=== PATIENT | female | born 2005 | race Caucasian/White ===

== ENCOUNTER 2024-03-08 09:54 | Outpatient (REF) | payer MEDICAID, SELFPAY ==
[2024-03-08 11:21] LABS: Estimated Average Glucose 134 mg/dL; Hemoglobin A1c % 6.3 % (<6.0)
[2024-03-08 11:32] LABS: HIV AB/AG Nonreactive (Nonreactive); HIV Num 1 0.05 S/CO (0.00-0.99)
[2024-03-10 19:24] LABS: TS Negative Control Passed; TS Panel A 1; TS Panel B 1; TS Positive Control Passed; TSpotTB Negative (Negative)
== END 2024-03-08 09:55 | disposition home or self-care (01) ==
LOC: HO.LAB 09:54
PROVIDERS: Visit Provider Family Medicine Adult Medicine
DX: Z00.01 Encounter for general adult medical examination with abnormal findings (principal)
CPT/HCPCS: 36415; 83036; 86481; 87389

== ENCOUNTER 2024-05-04 19:46 | Inpatient (IN) | payer MEDICAID, OTHER, SELFPAY ==
--- NOTE | 2024-05-04 20:06 | ED_ITS ---
HPI - General Adult General Chief complaint: Psychiatric Symptoms Stated complaint: Meds not working, she doesn't feel good Time Seen by Provider: 05/04/24 20:36 Source: patient Mode of arrival: ambulatory Limitations: no limitations History of Present Illness HPI narrative: Patient is a 19-year-old female who presents to the emergency department for evaluation. She states that she is in experiencing increasing depression and having suicidal ideations without any specific plan. She has been taking her medications as prescribed but despite a recent dosage change she only had improvement in her depression for approximately 1 month amend her depression worsened again. By her account she was taking lithium 150 mg, in mid March this was increased to 3 450 mg tablets for total of 1350 mg at bedtime and an additional 150 mg in the morning She recently moved from [facility] where she was seeing a therapist through [facility], she is currently residing at [facility]. She is requesting to establish care with [facility] at this time. She denies any recreational drug or alcohol usage. She offers no physical complaints at this time. Related Data Home Medications ?Medication ?Instructions ?Recorded ?Confirmed hydroxyzine pamoate 25 mg capsule 25 mg PO BID PRN anxiety 05/04/24 05/04/24 lithium carbonate 450 mg 450 mg PO QAM 05/04/24 05/04/24 tablet,extended release lithium carbonate 450 mg 900 mg PO BEDTIME 05/04/24 05/04/24 tablet,extended release Allergies Allergy/AdvReac Type Severity Reaction Status Date / Time Sulfa (Sulfonamide AdvReac Hives Verified 05/04/24 20:11 Antibiotics) Review of Systems 2 Review of Systems: Yes all other systems are reviewed and are negative [facility] Past Medical History Attestation statement: The following information was validated with the patient. Source: old records reviewed Social History Social History Advance Directives: No Advance Directives Information Provided: No Do you have a plan to hurt others: No Plan Physical Exam ED Vital Signs: Vital Signs - 24 hr 05/04/24 20:09 Temperature 98.4 F Pulse Rate 112 H Respiratory Rate 20 Blood Pressure 142/85 H Pulse Oximetry 100 Oxygen Delivery Method Room Air BMI result Body Mass Index 47.9 Appearance: Alert.?Oriented to person, place and time. No acute distress.?Normal affect. Neck: Normal inspection.? Neck supple.?? CVS: Heart sounds normal. Normal heart rate and rhythm.? Pulses normal.?? Respiratory: No respiratory distress.? Lung sounds clear to auscultation bilaterally?? Abdomen: Soft and non-tender. Normoactive bowel sounds. Skin: Skin warm and dry.? Normal skin color.? .?? Extremities: No lower extremity edema.? Neuro: Moves all extremities spontaneously. Sensation intact bilaterally. CN II- XII intact. No focal neuro deficits. Ambulates with normal steady gait. Course Course Course Narrative: This is an RME done by MIKAELA Andrade: Additional HPI, ROS, PE not included below will be deferred to primary provider. 19 year old female presenting from [facility] stating she was supposed to be set up with a therapist when she was there. Patient admits to SI without a plan. She has been taking her medications, but states they recently got changed and they are no longer working for her. Plan - labs, urine, WILKES, ethanol Appearance: Alert.? Oriented X3.? No acute cardiopulmonary distress distress.? Head: Normocephalic, atraumatic, no step-offs or deformities ENT: Pharynx normal.??External ears normal, TMs normal bilaterally and EAC's normal. No pain with manipulation of external ears bilaterally. No mastoid tenderness. Neck: Normal inspection.? Neck supple.? CVS: Pulses normal.? Respiratory: No respiratory distress.? Abdomen: Soft and nontender.? Skin: ? Normal skin color. Extremities: 5/5 strength to bilateral upper and lower extremities Back: No midline tenderness, no C-spine tenderness, full range of motion, No CVA tenderness bilaterally Neuro: Oriented X 3.? No motor deficit.? No sensory deficit. Reevaluation(s) Reevaluation #1: Patient was evaluated by care team, section 12 inpatient bed search at this time. Recent SI attempt via overdose on olanzapine pain in December of 2023, 2 attempts as a child as well. Serum lithium level is low, do not suspect that she has been taking her dosages as she advised. I do feel that she would benefit from inpatient level of care at this time. Time: 22:51 Reevaluation #2: 631am 05/05/24 no acute events on overnight shift, has WBC count but no UTI and no fevers, she is inpatient bed search S12, will continue to monitor for any acute changes - JAMARI Medical Decision Making Medical Decision Making MDM Narrative: Patient is a 19-year-old female who presents emergency department with depression suicidal ideations but no endorsed specific plan as per HPI. Overall she appears well, nontoxic, afebrile. She does appear mildly anxious, but she states she is upset because her medications are not working. On review of her medical history I see that she is being prescribed lithium in addition to hydroxyzine, she has previously been prescribed olanzapine in the past for psychosis. Given she is endorsing active suicidal ideations but not offer any specific plan. Serum labs will be obtained for medical clearance and she will be referred to the care team for further evaluation safe disposition planning. Differential Diagnosis Differential Diagnoses: The differential diagnosis associated with the presentation includes (See narrative below) Admission/Observation Consideration of admission/observation: Escalation of care including admission/observation considered Patient is being observed in the Emergency Department for depression and anxiety. Observation time was started at 21:58 on 05/04/2024..?The patient is currently stable and non-toxic appearing. Observation is being initiated in the Emergency Department to allow time to help differentiate if the patient's depression and anxiety is due to Substance Induced Mood Disorder and Anxiety versus Major Depressive Disorder, Bipolar Chante, Bipolar Depression, and Schizophrenia. The patient will receive frequent psychiatric assessments from the provider as well as from nursing staff. The patient will also be monitored for the need of PRN agitation medications such as Haldol, Ativan, and Benadryl. Consult Healthcare Provider Management of the patient was discussed with: Behavioral Health Provider Lab Data [facility] Lab Attestation statement: I reviewed the patient's lab results. WILKES negative, alcohol level nondetectable. No significant electrolyte derangement, no GABRIELA. LFTs mildly elevated, no nausea vomiting abdominal pain has benign examination, no jaundice. 05/04/24 20:27 05/04/24 20:27 Labs: Lab Results 05/04/24 05/04/24 05/04/24 Range/Units 20:27 20:48 22:09 WBC 15.3 H (4.8-10.8) X10*3/uL RBC 4.94 (4.20-5.50) X10*6/uL Hgb 13.5 (12.0-16.0) g/dl Hct 40.6 (37.0-47.0) % MCV 82.2 (80.0-98.0) fL MCH 27.3 (27.0-33.0) pg MCHC 33.3 (31.0-35.0) g/dl RDW 12.7 (11.0-16.0) % Plt Count 309 (160-400) X10*3/uL MPV 10.2 (9.4-12.3) fL Immature Gran % (Auto) 0.4 (0.0-0.4) % Neut % (Auto) 69.7 (45-73) % Lymph % (Auto) 24.8 (20-40) % [place] % (Auto) 4.1 (2-11) % Eos % (Auto) 0.7 (0-4) % Baso % (Auto) 0.3 (0-2) % Lymph # (Auto) 3.8 (1.2-4.9) X10*3/uL [place] # (Auto) 0.6 (0.1-1.2) X10*3/uL Eos # (Auto) 0.1 (0.0-0.4) X10*3/uL Baso # (Auto) 0.1 (0.0-0.2) X10*3/uL Abs Immat Gran (auto) 0.06 H (0.00-0.03) X10*3/uL Absolute Neuts (auto) 10.6 H (2.0-8.3) x10*3/uL Absolute Nucleated RBC 0.000 (0.0-0.012) X10*3/uL Nucleated RBC % (auto) 0.0 (0.0-0.2) /100WBC Sodium 142 (135-145) mmol/L Potassium 3.7 (3.3-5.1) mmol/L Chloride 109 H (96-108) mmol/L Carbon Dioxide 23 (22-29) mmol/L Anion Gap 14 (12-20) BUN 6 L (9-16) mg/dL Creatinine 0.79 (0.5-1.4) mg/dL Estim Creat Clear Calc 132.9 Estimated GFR > 60 Random Glucose 175 H (60-115) mg/dL Calcium 9.9 (8.4-10.2) mg/dL Magnesium 2.3 (1.6-2.6) mg/dL Total Bilirubin 0.3 (0.0-1.0) mg/dL AST 43 H (5-31) U/L ALT 54 H (0-31) U/L Alkaline Phosphatase 122 H (39-117) U/L Total Protein 7.3 (6.5-8.0) g/dL Albumin 4.4 (3.5-5.0) g/dL Urine Color Yellow Urine Appearance Clear Urine pH 7.0 (5.0-9.0) Ur Specific [place] <= 1.005 (1.005-1.025) Urine Protein Negative (Neg-Trace) mg/dL Urine Glucose (UA) Negative (Negative) mg/dL Urine Ketones Negative (Negative) mg/dL Urine Blood Negative (Negative) Urine Nitrite Negative (Negative) Ur Leukocyte Esterase Trace H (Negative) Urine RBC 0-2 (0-2) /HPF Urine WBC 0-5 (0-5) /HPF Ur Squamous Epith Cells 0-2 (0-2) /HPF Urine Bacteria None Seen (None Seen) Hyaline Casts 0-2 (0-2) /LPF Urine Test NEGATIVE (NEGATIVE) Urine Opiates Screen Not Detected (Not Detect) Ur Buprenorphine Scrn Not Detected (Not Detect) ng/mL Ur Oxycodone Screen Not Detected (Not Detect) ng/mL Urine Methadone Screen Not Detected (Not Detect) ng/mL Urine Fentanyl Screen Not Detected (Not Detect) Ur Barbiturates Screen Not Detected (Not Detect) Ur Phencyclidine Scrn Not Detected (Not Detect) Ur Amphetamines Screen Not Detected (Not Detect) U Benzodiazepines Scrn Not Detected (Not Detect) [place] 0.14 L (0.60-1.20) mmol/L Urine Cocaine Screen Not Detected (Not Detect) U Marijuana (THC) Screen Not Detected (Not Detect) Ethyl Alcohol < 10 mg/dL External Record Review External record reviewed: Outpatient record Discharge Plan Discharge Clinical Impression: Suicidal ideation, Depression Patient Disposition: Still a Patient Prescriptions: No Action lithium carbonate 450 mg tablet extended release 450 mg PO QAM hydroxyzine pamoate 25 mg capsule 25 mg PO BID PRN (Reason: anxiety) lithium carbonate 450 mg tablet extended release 900 mg PO BEDTIME Interventions: [place]-Suicide Risk Severity Scale Last Done: 05/04/24 20:38 Print Language: Guinean
[2024-05-04 20:09] VITALS: BP 142/85; PULSE 112; RESP 20; TEMP 36.9; O2SAT 100; BMI 47.9
[2024-05-04 20:31] LABS: MANUAL DIFF FLAG NO
[2024-05-04 20:32] LABS: Basophils Absolute Auto 0.1 X10*3/uL (0.0-0.2); Basophils Percent Auto 0.3 % (0-2); Eosinophils Absolute Auto 0.1 X10*3/uL (0.0-0.4); Eosinophils Percent Auto 0.7 % (0-4); Hematocrit 40.6 % (37.0-47.0); Hemoglobin 13.5 g/dl (12.0-16.0); Imm Gran Abs Auto 0.06 X10*3/uL (0.00-0.03); Imm Gran Pct Auto 0.4 % (0.0-0.4); Lymphocytes Absolute Auto 3.8 X10*3/uL (1.2-4.9); Lymphocytes Percent Auto 24.8 % (20-40); Mean Corpuscular HGB Conc 33.3 g/dl (31.0-35.0); Mean Corpuscular Hemoglobin 27.3 pg (27.0-33.0); Mean Corpuscular Volume 82.2 fL (80.0-98.0); Mean Platelet Volume 10.2 fL (9.4-12.3); Monocytes Absolute Auto 0.6 X10*3/uL (0.1-1.2); Monocytes Percent Auto 4.1 % (2-11); Neutrophils Absolute Auto 10.6 x10*3/uL (2.0-8.3); Neutrophils Percent Auto 69.7 % (45-73); Platelet Count 309 X10*3/uL (160-400); Red Blood Count 4.94 X10*6/uL (4.20-5.50); Red Cell Distribution Width 12.7 % (11.0-16.0); White Blood Count 15.3 X10*3/uL (4.8-10.8)
[2024-05-04 20:53] LABS: Alanine Aminotransferase 54 U/L (0-31); Albumin Level 4.4 g/dL (3.5-5.0); Alkaline Phosphatase 122 U/L (39-117); Anion Gap 14 (12-20); Aspartate Amino Transferase 43 U/L (5-31); Bilirubin Total 0.3 mg/dL (0.0-1.0); Blood Urea Nitrogen 6 mg/dL (9-16); Calcium 9.9 mg/dL (8.4-10.2); Carbon Dioxide 23 mmol/L (22-29); Chloride 109 mmol/L (96-108); Creatinine Clr Calc Pharmacy 132.9; Estimated Glomerular Filt Rate > 60; Ethanol < 10 mg/dL; Glucose Random 175 mg/dL (60-115); Magnesium 2.3 mg/dL (1.6-2.6); Potassium 3.7 mmol/L (3.3-5.1); Sodium 142 mmol/L (135-145); Total Protein 7.3 g/dL (6.5-8.0)
[2024-05-04 20:57] LABS: Appearance Urine Clear; Color Urine Yellow; Glucose Urine UA Negative (Negative); Leukocyte Esterase Urine Trace (Negative); Nitrite Urine Negative (Negative); Specific Gravity - Urine <= 1.005 (1.005-1.025); UMIC TRIGGER UACC YES; Urine Blood Negative (Negative); Urine Ketones Negative (Negative); Urine Protein Negative (Neg-Trace)
[2024-05-04 20:58] LABS: UPreg QC Valid YES; Urine Pregnancy NEGATIVE (NEGATIVE)
[2024-05-04 21:00] LABS: Bacteria Urine None Seen (None Seen); Hyaline Casts Urine 0-2 /LPF (0-2); RBC Urine 0-2 /HPF (0-2); Squamous Epithelial Cell Urine 0-2 /HPF (0-2); WBC Urine 0-5 /HPF (0-5)
[2024-05-04 21:06] LABS: Amphetamine Screen Urine Not Detected (Not Detect); Barbiturates, Urine Not Detected (Not Detect); Benzodiazepines Screen Urine Not Detected (Not Detect); Buprenorphine Scr Not Detected (Not Detect); Cannabinoid Screen Urine Not Detected (Not Detect); Cocaine Screen Urine Not Detected (Not Detect); Fentanyl, urine Not Detected (Not Detect); Methadone Screen, Urine Not Detected (Not Detect); Opiate Screen Urine Not Detected (Not Detect); Oxycodone Screen Urine Not Detected (Not Detect); Phencyclidine Screen Urine Not Detected (Not Detect)
[2024-05-04 22:26] LABS: Lithium 0.14 mmol/L (0.60-1.20)
--- NOTE | 2024-05-05 | ECG_ITS ---
Test Reason : COUSIB Blood Pressure : / mmHG Vent. Rate : 063 BPM Atrial Rate : 063 BPM P-R Int : 152 ms QRS Dur : 080 ms QT Int : 414 ms P-R-T Axes : 029 059 036 degrees QTc Int : 423 ms Normal sinus rhythm with sinus arrhythmia Normal ECG No previous ECGs available Referred By: David Zuluaga Electronically Signed By:ANAYA BEATTY
--- NOTE | 2024-05-05 06:29 | PC.NURSE ---
Patient slept through the night, no distress observed/reported, no behavior and safety concerns, VSS, med rec completed/pending provider's approval, disposition per care team, will continue to monitor
[2024-05-05 06:37] VITALS: BP 126/85; PULSE 75; RESP 16; TEMP 37.1; O2SAT 98
--- NOTE | 2024-05-05 07:14 | PC.NURSE ---
Assumed care of patient at 0645, patient appears to be sleeping, respirations even and unlabored, no apparent distress noted. Continue plan of care for inpatient bedsearch at this time
[2024-05-05] MEDS: Lithium Carbonate ER 450 MG TABLET.ER PO (08:41)
--- NOTE | 2024-05-05 16:52 | PC.ADMIT ---
Gaye is a 19-year-old female admitted from [facility] to M3 on a CV for treatment of schizoaffective bipolar disorder and SI.
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
[2024-05-05 18:01] VITALS: BMI 47.1
[2024-05-05 20:00] VITALS: BP 138/72; PULSE 85; RESP 16; TEMP 36.6; O2SAT 98
[2024-05-06 07:00] VITALS: BMI 47.1
[2024-05-06 08:00] VITALS: BP 125/69; PULSE 86; RESP 16; TEMP 36.4; O2SAT 99
--- NOTE | 2024-05-06 08:42 | P.HPPS_ITS ---
[facility] Date of Service: 05/06/24 Chief Complaint: Crisis Sources of Information: patient interviewed, chart reviewed and crisis/core team assessment reviewed HPI Subjective Notes: Doe Warning and Conditional Voluntary Narrative: Patient is a 19-year-old female with history of schizoaffective disorder who self presented to [facility] due to suicidal ideation secondary to increased depression. Per crisis report, patient reports a recent medication change and believes it is no longer working. Patient was taken off olanzapine a few months ago at the request of patient due to weight gain and her lithium was increased. [place] level was 0.14. Patient reported suicidal ideation with plans to cut herself. Patient reports last time she cut was December 2023. She reports multiple inpatient psychiatric hospitalizations. denies HI/VH/AH. Per patient's mother, she is medication compliant. Patient has a history of 3 prior suicide attempts by intentional overdose. Two of the suicide attempts were in her adolescents and another was a year ago. Patient has a prescriber who is located in [place], [place]. She does not currently have an outpatient therapist but would like to be referred to one through [facility]. Patient reports sleeping well at night and denies any nightmares. She reports not having any hallucinations and months . During admission assessment, alert and oriented x3, calm and cooperative. Patient stated, I came to the hospital because I feel like my meds are not working and I was not feeling safe where I was. I don't feel like the medication was helping with my depression. I was having thoughts to cut myself, not suicide. Patient reports she forgets to take her medications at times. Patient reports the stress of [facility] and all the drama there made me want to cut . Patient denies any substance use. Utox negative. Patient stated, I just want to make sure my meds are okay and I want to get a therapist through [facility] . Patient denies SI/HI/VH/AH. Past Psychiatric History: History of multiple inpatient psychiatric hospitalizations. Patient reports 3 prior suicide attempts via medication overdose. She reports history of cutting. Psychiatrist: Crystal Thomas in [place], [place] Patient does not currently have a therapist. Medication history: [place], Zyprexa. Medical Evaluation Reviewed: Yes PMFSH Family History: Father-schizophrenia Social History: Lives at [facility], single, no kids. High school diploma. Substance History: Denies Trauma History: Denies Diagnostics Vital Signs (24Hr): Vital Signs - 24 hr 05/05/24 20:00 05/06/24 08:00 Temperature 97.8 F 97.6 F Pulse Rate 85 86 Respiratory Rate 16 16 Blood Pressure 138/72 125/69 Pulse Oximetry 98 99 Oxygen Delivery Method Room Air Room Air BMI result Body Mass Index 47.1 Labs 05/04/24 20:27 05/06/24 09:39 Labs: Laboratory Results - last 48 hr 05/04/24 05/04/24 05/04/24 20:27 20:48 22:09 WBC 15.3 H RBC 4.94 Hgb 13.5 Hct 40.6 MCV 82.2 MCH 27.3 MCHC 33.3 RDW 12.7 Plt Count 309 MPV 10.2 Immature Gran % (Auto) 0.4 Neut % (Auto) 69.7 Lymph % (Auto) 24.8 [place] % (Auto) 4.1 Eos % (Auto) 0.7 Baso % (Auto) 0.3 Lymph # (Auto) 3.8 [place] # (Auto) 0.6 Eos # (Auto) 0.1 Baso # (Auto) 0.1 Abs Immat Gran (auto) 0.06 H Absolute Neuts (auto) 10.6 H Absolute Nucleated RBC 0.000 Nucleated RBC % (auto) 0.0 Sodium 142 Potassium 3.7 Chloride 109 H Carbon Dioxide 23 Anion Gap 14 BUN 6 L Creatinine 0.79 Estim Creat Clear Calc 132.9 Estimated GFR > 60 Random Glucose 175 H Calcium 9.9 Magnesium 2.3 Total Bilirubin 0.3 AST 43 H ALT 54 H Alkaline Phosphatase 122 H Total Protein 7.3 Albumin 4.4 Urine Color Yellow Urine Appearance Clear Urine pH 7.0 Ur Specific [place] <= 1.005 Urine Protein Negative Urine Glucose (UA) Negative Urine Ketones Negative Urine Blood Negative Urine Nitrite Negative Ur Leukocyte Esterase Trace H Urine RBC 0-2 Urine WBC 0-5 Ur Squamous Epith Cells 0-2 Urine Bacteria None Seen Hyaline Casts 0-2 Urine Test NEGATIVE Urine Opiates Screen Not Detected Ur Buprenorphine Scrn Not Detected Ur Oxycodone Screen Not Detected Urine Methadone Screen Not Detected Urine Fentanyl Screen Not Detected Ur Barbiturates Screen Not Detected Ur Phencyclidine Scrn Not Detected Ur Amphetamines Screen Not Detected U Benzodiazepines Scrn Not Detected [place] 0.14 L Urine Cocaine Screen Not Detected U Marijuana (THC) Screen Not Detected Ethyl Alcohol < 10 Meds/Allergies Meds Home Medications ?Medication ?Instructions ?Recorded ?Confirmed ?Type hydroxyzine pamoate 25 mg capsule 25 mg PO BID PRN anxiety 05/04/24 05/04/24 History lithium carbonate 450 mg 450 mg PO QAM 05/04/24 05/04/24 History tablet,extended release lithium carbonate 450 mg 900 mg PO BEDTIME 05/04/24 05/04/24 History tablet,extended release Allergies Allergies Allergy/AdvReac Type Severity Reaction Status Date / Time Sulfa (Sulfonamide AdvReac Hives Verified 05/04/24 20:11 Antibiotics) Mental Status Exam Mental Status Exam Narrative: Pt is alert and oriented; behavior is cooperative and calm; dressed in casual attire; mood is described as depressed ; eye contact appropriate; Speech is normal rate, volume and not pressured; thought process is organized and goal directed; Thought content is on tx; otherwise pertinent to relevant topics and without any delusional content, paranoid ideations or grandiosity; denies SI/HI/AH/VH. Assessment & Plan Assessment & Plan (1) Schizoaffective disorder: Status: Acute Code(s): F25.9 - Schizoaffective disorder, unspecified Plan Patient is a 19-year-old female with history of schizoaffective disorder who self presented to [facility] due to suicidal ideation secondary to increased depression. Plan: CV 15 minute safety checks Continue home medications Encourage groups Discharge planning Patient educated on: diagnosis, medication risk/benefits and therapeutic strategies Informed Consent: understands Reason for continued inpatient stay Substantial Risk for: harm to self and med/psych decompensation Statement Statement: I have reviewed the history and physical and performed a pertinent examination on my patient. No changes have occurred unless specified. If the History and Physical was not performed prior to admission, the Hospitalist's service will be consulted for completing the admission physical. Time Spent With Patient Time: Total time managing care of this patient today _60___ minutes.
[2024-05-06] MEDS: Lithium Carbonate ER 450 MG TABLET.ER PO (09:05)
[2024-05-06 10:40] LABS: Alanine Aminotransferase 55 U/L (0-31); Albumin Level 4.1 g/dL (3.5-5.0); Alkaline Phosphatase 117 U/L (39-117); Anion Gap 16 (12-20); Aspartate Amino Transferase 36 U/L (5-31); Bilirubin Total 0.4 mg/dL (0.0-1.0); Blood Urea Nitrogen 9 mg/dL (9-16); Calcium 9.9 mg/dL (8.4-10.2); Carbon Dioxide 21 mmol/L (22-29); Chloride 110 mmol/L (96-108); Cholesterol 144 mg/dL (<200); Creatinine Clr Calc Pharmacy 136.6; Estimated Glomerular Filt Rate > 60; Glucose Fasting 139 mg/dL (60-99); HDL Cholesterol 26 mg/dL (>40); LDL Cholesterol Calculated 86 mg/dL (<100); Potassium 3.8 mmol/L (3.3-5.1); Sodium 143 mmol/L (135-145); Triglycerides 160 mg/dL (<150)
[2024-05-06 20:00] VITALS: BP 130/77; PULSE 91; RESP 14; TEMP 36.6; O2SAT 100
[2024-05-06] MEDS: Lithium Carbonate ER 450 MG TABLET.ER 900 MG PO (20:12)
[2024-05-07 07:35] VITALS: BP 114/63; PULSE 82; RESP 14; TEMP 36.4; O2SAT 96
--- NOTE | 2024-05-07 08:33 | HO.PSYCHPN ---
Subjective Subjective Date of Service: 05/07/24 Reason For Visit: Crisis Subjective Notes: Conditional Voluntary Interim History: Reviewed with Dr. Pena. Pt reports feeling better than yesterday. She reports sleeping well last night. attending groups. Showered. Pt denies thoughts of cutting today. Continue current tx plan. Medication Compliance: Yes Side effects from medications: No Attending Groups: Yes Review of Systems Constitutional: Reports as per HPI Eyes: Reports as per HPI Reports as per HPI Cardiovascular: Reports as per HPI Respiratory: Reports as per HPI Gastrointestinal: Reports as per HPI Musculoskeletal: Reports as per HPI Skin/Breast: Reports as per HPI Reports as per HPI Psychiatric: Reports as per HPI Endocrine: Reports as per HPI Hematologic/Lymphatic: Reports as per HPI Allergic/Immunologic: Reports as per HPI Mental Status Exam Mental Status Exam Narrative: Pt is alert and oriented; behavior is cooperative and calm; dressed in casual attire; mood is described as better than yesterday ; eye contact appropriate; Speech is normal rate, volume and not pressured; thought process is organized and goal directed; Thought content is on tx; otherwise pertinent to relevant topics and without any delusional content, paranoid ideations or grandiosity; denies SI/HI/AH/VH. Diagnostics Vital Signs (24Hr): Vital Signs - 24 hr 05/06/24 20:00 05/07/24 07:35 Temperature 97.9 F 97.6 F Pulse Rate 91 82 Respiratory Rate 14 14 Blood Pressure 130/77 114/63 Pulse Oximetry 100 96 Oxygen Delivery Method Room Air Room Air BMI result Body Mass Index 47.1 Labs 05/04/24 20:27 05/06/24 09:39 Labs: Laboratory Results - last 48 hr 05/06/24 09:39 Sodium 143 Potassium 3.8 Chloride 110 H Carbon Dioxide 21 L Anion Gap 16 BUN 9 Creatinine 0.76 Estim Creat Clear Calc 136.6 Estimated GFR > 60 Fasting Glucose 139 H Calcium 9.9 Total Bilirubin 0.4 AST 36 H ALT 55 H Alkaline Phosphatase 117 Total Protein 7.0 Albumin 4.1 Triglycerides 160 H Cholesterol 144 LDL Cholesterol, Calc 86 HDL Cholesterol 26 L Medications Medications Current Medications Acetaminophen (Acetaminophen 325 Mg Tablet) 650 mg PO Q6H PRN PRN Reason: Headache/Pain Mild Scale (1-3) Al Hydroxide/Mg Hydroxide (Magnesium Hydrox/Alum Hydrox 30 Ml Oral.Susp) 30 ml PO Q6H PRN PRN Reason: Heartburn/Nausea Hydroxyzine HCl (Hydroxyzine Hcl 25 Mg Tablet) 25 mg PO BID PRN PRN Reason: anxiety [place] Carbonate ([place] Carbonate Er 450 Mg Tablet.Er) 450 mg PO DAILY [facility] Last Admin: 05/06/24 09:05 Dose: 450 mg [place] Carbonate ([place] Carbonate Er 450 Mg Tablet.Er) 900 mg PO BEDTIME GRACY Last Admin: 05/06/24 20:12 Dose: 900 mg Magnesium Hydroxide (Milk Of Magnesia 30 Ml Oral.Susp) 30 ml PO DAILY PRN PRN Reason: Constipation Trazodone HCl (Trazodone Hcl 50 Mg Tablet) 50 mg PO BEDTIME MRX1 PRN PRN Reason: Insomnia Allergies Allergies Allergy/AdvReac Type Severity Reaction Status Date / Time blue dye AdvReac Intermediate Redness of Verified 05/06/24 16:32 Skin red dye AdvReac Intermediate Redness of Verified 05/06/24 16:32 Skin Sulfa (Sulfonamide AdvReac Hives Verified 05/04/24 20:11 Antibiotics) Assessment & Plan Assessment & Plan (1) Schizoaffective disorder: Status: Acute Code(s): F25.9 - Schizoaffective disorder, unspecified Plan Patient is a 19-year-old female with history of schizoaffective disorder who self presented to [facility] due to suicidal ideation secondary to increased depression. Plan: CV 15 minute safety checks Continue home medications Encourage groups Discharge planning 05/07: Pt reports feeling better than yesterday. She reports sleeping well last night. attending groups. Showered. Pt denies thoughts of cutting today. Continue current tx plan. Patient educated on: diagnosis, medication risk/benefits and therapeutic strategies Reason for continued inpatient stay Substantial Risk for: harm to self and med/psych decompensation Time Spent With Patient Time: Total time managing care of this patient today _20___ minutes.
[2024-05-07] MEDS: Lithium Carbonate ER 450 MG TABLET.ER PO (08:34)
[2024-05-07 19:50] VITALS: BP 130/75; PULSE 90; RESP 18; TEMP 36.8; O2SAT 100
[2024-05-07] MEDS: Lithium Carbonate ER 450 MG TABLET.ER 900 MG PO (22:24)
[2024-05-08 08:00] VITALS: BP 128/71; PULSE 78; RESP 18; TEMP 36.7; O2SAT 99
--- NOTE | 2024-05-08 09:05 | P.PNPSI_ITS ---
Subjective Subjective Date of Service: 05/08/24 Reason For Visit: Crisis Interim History: Patient continues to report improvement in mood. Denies SI or self harm urges. She is reported to be pleasant and cooperative with staff. attending groups. Continue current tx plan. Review of Systems Review of Systems Yes all other systems are reviewed and are negative Constitutional: Reports as per HPI Eyes: Reports as per HPI Reports as per HPI Cardiovascular: Reports as per HPI Respiratory: Reports as per HPI Gastrointestinal: Reports as per HPI Musculoskeletal: Reports as per HPI Skin/Breast: Reports as per HPI Reports as per HPI Psychiatric: Reports as per HPI Endocrine: Reports as per HPI Hematologic/Lymphatic: Reports as per HPI Allergic/Immunologic: Reports as per HPI Mental Status Exam Mental Status Exam Narrative: Pt is alert and oriented; behavior is cooperative and calm; dressed in casual attire; mood is described as better than yesterday ; eye contact appropriate; Speech is normal rate, volume and not pressured; thought process is organized and goal directed; Thought content is on tx; otherwise pertinent to relevant topics and without any delusional content, paranoid ideations or grandiosity; denies SI/HI/AH/VH. Diagnostics Vital Signs (24Hr): Vital Signs - 24 hr 05/07/24 19:50 Temperature 98.2 F Pulse Rate 90 Respiratory Rate 18 Blood Pressure 130/75 Pulse Oximetry 100 Oxygen Delivery Method Room Air BMI result Body Mass Index 47.1 Labs 05/04/24 20:27 05/06/24 09:39 Labs: Laboratory Results - last 48 hr 05/06/24 09:39 Sodium 143 Potassium 3.8 Chloride 110 H Carbon Dioxide 21 L Anion Gap 16 BUN 9 Creatinine 0.76 Estim Creat Clear Calc 136.6 Estimated GFR > 60 Fasting Glucose 139 H Calcium 9.9 Total Bilirubin 0.4 AST 36 H ALT 55 H Alkaline Phosphatase 117 Total Protein 7.0 Albumin 4.1 Triglycerides 160 H Cholesterol 144 LDL Cholesterol, Calc 86 HDL Cholesterol 26 L Medications Medications Current Medications Acetaminophen (Acetaminophen 325 Mg Tablet) 650 mg PO Q6H PRN PRN Reason: Headache/Pain Mild Scale (1-3) Al Hydroxide/Mg Hydroxide (Magnesium Hydrox/Alum Hydrox 30 Ml Oral.Susp) 30 ml PO Q6H PRN PRN Reason: Heartburn/Nausea Hydroxyzine HCl (Hydroxyzine Hcl 25 Mg Tablet) 25 mg PO BID PRN PRN Reason: anxiety [place] Carbonate ([place] Carbonate Er 450 Mg Tablet.Er) 450 mg PO DAILY [facility] Last Admin: 05/07/24 21:39 Dose: 450 mg [place] Carbonate ([place] Carbonate Er 450 Mg Tablet.Er) 900 mg PO BEDTIME [facility] Last Admin: 05/07/24 22:24 Dose: 900 mg Magnesium Hydroxide (Milk Of Magnesia 30 Ml Oral.Susp) 30 ml PO DAILY PRN PRN Reason: Constipation Trazodone HCl (Trazodone Hcl 50 Mg Tablet) 50 mg PO BEDTIME MRX1 PRN PRN Reason: Insomnia Allergies Allergies Allergy/AdvReac Type Severity Reaction Status Date / Time blue dye AdvReac Intermediate Redness of Verified 05/06/24 16:32 Skin red dye AdvReac Intermediate Redness of Verified 05/06/24 16:32 Skin Sulfa (Sulfonamide AdvReac Hives Verified 05/04/24 20:11 Antibiotics) Assessment & Plan Assessment & Plan (1) Schizoaffective disorder: Status: Acute Code(s): F25.9 - Schizoaffective disorder, unspecified Plan Patient is a 19-year-old female with history of schizoaffective disorder who self presented [place] [facility] [place] due to suicidal ideation secondary to increased depression. Plan: CV 15 minute safety checks Continue home medications Encourage groups Discharge planning 05/07: Pt reports feeling better than yesterday. She reports sleeping well last night. attending groups. Showered. Pt denies thoughts of cutting today. Continue current tx plan. 05/08: continue current management and treatment plan. Reason for continued inpatient stay Substantial Risk for: harm to self and rapid decompensation Time Spent With Patient Time: Total time managing care of this patient today ____ minutes.
[2024-05-08] MEDS: Lithium Carbonate ER 450 MG TABLET.ER PO (09:12)
[2024-05-08 18:55] VITALS: BP 136/86; PULSE 100; RESP 14; TEMP 36.6; O2SAT 98
[2024-05-08] MEDS: Lithium Carbonate ER 450 MG TABLET.ER 900 MG PO (21:47)
[2024-05-08] MEDS: hydrOXYzine HCL 25 MG TABLET PO (23:40)
[2024-05-09] MEDS: OLANZapine 2.5 MG TABLET PO (00:22)
[2024-05-09 07:55] VITALS: BP 111/77; PULSE 85; RESP 16; TEMP 36.3; O2SAT 95
[2024-05-09] MEDS: Lithium Carbonate ER 450 MG TABLET.ER PO (09:16)
--- NOTE | 2024-05-09 11:37 | P.PNPSI_ITS ---
Subjective Subjective Date of Service: 05/09/24 Reason For Visit: Crisis Interim History: Patient continues to report improvement in mood but had AH last night and received Zyprexa. She said it helped. Later told RN it made me depressed . Denies AH today. Denies SI or self harm urges. She is reported to be pleasant and cooperative with staff. attending groups. Review of Systems Review of Systems Yes all other systems are reviewed and are negative Constitutional: Reports as per HPI Eyes: Reports as per HPI Reports as per HPI Cardiovascular: Reports as per HPI Respiratory: Reports as per HPI Gastrointestinal: Reports as per HPI Musculoskeletal: Reports as per HPI Skin/Breast: Reports as per HPI Reports as per HPI Psychiatric: Reports as per HPI Endocrine: Reports as per HPI Hematologic/Lymphatic: Reports as per HPI Allergic/Immunologic: Reports as per HPI Mental Status Exam Mental Status Exam Narrative: Pt is alert and oriented; behavior is cooperative and calm; dressed in casual attire; mood is described as better than yesterday ; eye contact appropriate; Speech is normal rate, volume and not pressured; thought process is organized and goal directed; Thought content is on tx; otherwise pertinent to relevant topics and without any delusional content, paranoid ideations or grandiosity; denies SI/HI/AH/VH. Diagnostics Vital Signs (24Hr): Vital Signs - 24 hr 05/08/24 18:55 05/09/24 07:55 Temperature 97.8 F 97.4 F Pulse Rate 100 85 Respiratory Rate 14 16 Blood Pressure 136/86 111/77 Pulse Oximetry 98 95 Oxygen Delivery Method Room Air Room Air BMI result Body Mass Index 47.1 Labs 05/04/24 20:27 05/06/24 09:39 Medications Medications Current Medications Acetaminophen (Acetaminophen 325 Mg Tablet) 650 mg PO Q6H PRN PRN Reason: Headache/Pain Mild Scale (1-3) Al Hydroxide/Mg Hydroxide (Magnesium Hydrox/Alum Hydrox 30 Ml Oral.Susp) 30 ml PO Q6H PRN PRN Reason: Heartburn/Nausea Hydroxyzine HCl (Hydroxyzine Hcl 25 Mg Tablet) 25 mg PO BID PRN PRN Reason: anxiety Last Admin: 05/08/24 23:40 Dose: 25 mg [place] Carbonate ([place] Carbonate Er 450 Mg Tablet.Er) 450 mg PO DAILY [facility] Last Admin: 05/09/24 09:16 Dose: 450 mg [place] Carbonate ([place] Carbonate Er 450 Mg Tablet.Er) 900 mg PO BEDTIME [facility] Last Admin: 05/08/24 21:47 Dose: 900 mg Magnesium Hydroxide (Milk Of Magnesia 30 Ml Oral.Susp) 30 ml PO DAILY PRN PRN Reason: Constipation Olanzapine (Olanzapine 2.5 Mg Tablet) 2.5 mg PO BID PRN PRN Reason: hallucinations Last Admin: 05/09/24 00:22 Dose: 2.5 mg Trazodone HCl (Trazodone Hcl 50 Mg Tablet) 50 mg PO BEDTIME MRX1 PRN PRN Reason: Insomnia Allergies Allergies Allergy/AdvReac Type Severity Reaction Status Date / Time blue dye AdvReac Intermediate Redness of Verified 05/06/24 16:32 Skin red dye AdvReac Intermediate Redness of Verified 05/06/24 16:32 Skin Sulfa (Sulfonamide AdvReac Hives Verified 05/04/24 20:11 Antibiotics) Assessment & Plan Assessment & Plan (1) Schizoaffective disorder: Status: Acute Code(s): F25.9 - Schizoaffective disorder, unspecified Plan Patient is a 19-year-old female with history of schizoaffective disorder who self [place] [facility] due to suicidal ideation secondary to increased depression. Plan: CV 15 minute safety checks Continue home medications Encourage groups Discharge planning 05/07: Pt reports feeling better than yesterday. She reports sleeping well last night. attending groups. Showered. Pt denies thoughts of cutting today. Continue current tx plan. 05/08: continue current management and treatment plan. 05/09: Switch Zyprexa PRN to Seroquel PRN. Continue current management and treatment plan. Reason for continued inpatient stay Substantial Risk for: harm to self, inability to function and rapid decompensation Time Spent With Patient Time: Total time managing care of this patient today ____ minutes.
[2024-05-09 19:25] VITALS: BP 124/75; PULSE 100; RESP 18; TEMP 37; O2SAT 99
[2024-05-09] MEDS: Lithium Carbonate ER 450 MG TABLET.ER 900 MG PO (22:04)
[2024-05-10 08:00] VITALS: BP 109/57; PULSE 85; RESP 16; TEMP 36.6; O2SAT 97
[2024-05-10] MEDS: Lithium Carbonate ER 450 MG TABLET.ER PO (09:08)
--- NOTE | 2024-05-10 11:18 | HO.PSYCHPN ---
Subjective Subjective Date of Service: 05/10/24 Reason For Visit: Crisis Interim History: Patient continues to report feeling better than yesterday. Didn't have any AH last night. Denies SI or self harm urges. She is reported to be pleasant and cooperative with staff. attending groups. Visble in the milieu. Review of Systems Review of Systems Yes all other systems are reviewed and are negative Constitutional: Reports as per HPI Eyes: Reports as per HPI Reports as per HPI Cardiovascular: Reports as per HPI Respiratory: Reports as per HPI Gastrointestinal: Reports as per HPI Musculoskeletal: Reports as per HPI Skin/Breast: Reports as per HPI Reports as per HPI Psychiatric: Reports as per HPI Endocrine: Reports as per HPI Hematologic/Lymphatic: Reports as per HPI Allergic/Immunologic: Reports as per HPI Mental Status Exam Mental Status Exam Narrative: Pt is alert and oriented; behavior is cooperative and calm; dressed in casual attire; mood is described as better than yesterday ; eye contact appropriate; Speech is normal rate, volume and not pressured; thought process is organized and goal directed; Thought content is on tx; otherwise pertinent to relevant topics and without any delusional content, paranoid ideations or grandiosity; denies SI/HI/AH/VH. Diagnostics Vital Signs (24Hr): Vital Signs - 24 hr 05/09/24 19:25 05/10/24 08:00 Temperature 98.6 F 97.8 F Pulse Rate 100 85 Respiratory Rate 18 16 Blood Pressure 124/75 109/57 L Pulse Oximetry 99 97 Oxygen Delivery Method Room Air Room Air BMI result Body Mass Index 47.1 Labs 05/04/24 20:27 05/06/24 09:39 Medications Medications Current Medications Acetaminophen (Acetaminophen 325 Mg Tablet) 650 mg PO Q6H PRN PRN Reason: Headache/Pain Mild Scale (1-3) Al Hydroxide/Mg Hydroxide (Magnesium Hydrox/Alum Hydrox 30 Ml Oral.Susp) 30 ml PO Q6H PRN PRN Reason: Heartburn/Nausea Hydroxyzine HCl (Hydroxyzine Hcl 25 Mg Tablet) 25 mg PO BID PRN PRN Reason: anxiety Last Admin: 05/08/24 23:40 Dose: 25 mg [place] Carbonate ([place] Carbonate Er 450 Mg Tablet.Er) 450 mg PO DAILY [facility] Last Admin: 05/10/24 09:08 Dose: 450 mg [place] Carbonate ([place] Carbonate Er 450 Mg Tablet.Er) 900 mg PO BEDTIME [facility] Last Admin: 05/09/24 22:04 Dose: 900 mg Magnesium Hydroxide (Milk Of Magnesia 30 Ml Oral.Susp) 30 ml PO DAILY PRN PRN Reason: Constipation Quetiapine Fumarate (Quetiapine Fumarate 50 Mg Tablet) 50 mg PO BID PRN PRN Reason: Hallucinations Trazodone HCl (Trazodone Hcl 50 Mg Tablet) 50 mg PO BEDTIME MRX1 PRN PRN Reason: Insomnia Allergies Allergies Allergy/AdvReac Type Severity Reaction Status Date / Time blue dye AdvReac Intermediate Redness of Verified 05/06/24 16:32 Skin red dye AdvReac Intermediate Redness of Verified 05/06/24 16:32 Skin Sulfa (Sulfonamide AdvReac Hives Verified 05/04/24 20:11 Antibiotics) Assessment & Plan Assessment & Plan (1) Schizoaffective disorder: Status: Acute Code(s): F25.9 - Schizoaffective disorder, unspecified Plan Patient is a 19-year-old female with history of schizoaffective disorder who self [place] [facility] [place] to suicidal ideation secondary to increased depression. Plan: CV 15 minute safety checks Continue home medications Encourage groups Discharge planning 05/07: Pt reports feeling better than yesterday. She reports sleeping well last night. attending groups. Showered. Pt denies thoughts of cutting today. Continue current tx plan. 05/08: continue current management and treatment plan. 05/09: Switch Zyprexa PRN to Seroquel PRN. Continue current management and treatment plan. 05/10: Continue current management and treatment plan. Reason for continued inpatient stay Substantial Risk for: harm to self, inability to function and rapid decompensation Time Spent With Patient Time: Total time managing care of this patient today ____ minutes.
[2024-05-10] MEDS: hydrOXYzine HCL 25 MG TABLET PO (19:02)
[2024-05-10 20:00] VITALS: BP 145/84; PULSE 97; RESP 16; TEMP 36.7; O2SAT 100
[2024-05-10] MEDS: Lithium Carbonate ER 450 MG TABLET.ER 900 MG PO (22:02)
[2024-05-10] MEDS: QUEtiapine Fumarate 50 MG TABLET PO (23:18)
[2024-05-11 08:00] VITALS: BP 122/65; PULSE 99; RESP 16; TEMP 36.5; O2SAT 97
[2024-05-11] MEDS: Lithium Carbonate ER 450 MG TABLET.ER PO (08:42)
--- NOTE | 2024-05-11 09:29 | HO.PSYCHPN ---
Subjective Subjective Date of Service: 05/11/24 Reason For Visit: Crisis Subjective Notes: Conditional Voluntary Interim History: Reviewed with Dr. Pena. Pt reports feeling good ; she reports feeling better than when I first came here . pt denies SI/HI/VH/AH. [place] level 1.13 on 05/11/24. Pt reports she is looking forward to returning to [place]. Plan for discharge this week. Medication Compliance: Yes Side effects from medications: No Attending Groups: Yes Review of Systems Constitutional: Reports as per HPI Eyes: Reports as per HPI Reports as per HPI Cardiovascular: Reports as per HPI Respiratory: Reports as per HPI Gastrointestinal: Reports as per HPI Genitourinary: Reports as per HPI Musculoskeletal: Reports as per HPI Skin/Breast: Reports as per HPI Reports as per HPI Psychiatric: Reports as per HPI Endocrine: Reports as per HPI Hematologic/Lymphatic: Reports as per HPI Allergic/Immunologic: Reports as per HPI Mental Status Exam Mental Status Exam Narrative: Pt is alert and oriented; behavior is cooperative, friendly and calm; dressed in casual attire; mood is described as good ; eye contact appropriate; Speech is normal rate, volume and not pressured; thought process is organized; Thought content is on tx; denies SI/HI/VH/AH. Diagnostics Vital Signs (24Hr): Vital Signs - 24 hr 05/10/24 20:00 05/11/24 08:00 Temperature 98.1 F 97.7 F Pulse Rate 97 99 Respiratory Rate 16 16 Blood Pressure 145/84 H 122/65 Pulse Oximetry 100 97 Oxygen Delivery Method Room Air Room Air BMI result Body Mass Index 47.1 Labs 05/04/24 20:27 05/11/24 09:56 Medications Medications Current Medications Acetaminophen (Acetaminophen 325 Mg Tablet) 650 mg PO Q6H PRN PRN Reason: Headache/Pain Mild Scale (1-3) Al Hydroxide/Mg Hydroxide (Magnesium Hydrox/Alum Hydrox 30 Ml Oral.Susp) 30 ml PO Q6H PRN PRN Reason: Heartburn/Nausea Hydroxyzine HCl (Hydroxyzine Hcl 25 Mg Tablet) 25 mg PO BID PRN PRN Reason: anxiety Last Admin: 05/10/24 19:02 Dose: 25 mg [place] Carbonate ([place] Carbonate Er 450 Mg Tablet.Er) 450 mg PO DAILY [facility] Last Admin: 05/11/24 08:42 Dose: 450 mg [place] Carbonate ([place] Carbonate Er 450 Mg Tablet.Er) 900 mg PO BEDTIME [facility] Last Admin: 05/10/24 22:02 Dose: 900 mg Magnesium Hydroxide (Milk Of Magnesia 30 Ml Oral.Susp) 30 ml PO DAILY PRN PRN Reason: Constipation Quetiapine Fumarate (Quetiapine Fumarate 50 Mg Tablet) 50 mg PO BID PRN PRN Reason: Hallucinations Last Admin: 05/10/24 23:18 Dose: 50 mg Trazodone HCl (Trazodone Hcl 50 Mg Tablet) 50 mg PO BEDTIME MRX1 PRN PRN Reason: Insomnia Allergies Allergies Allergy/AdvReac Type Severity Reaction Status Date / Time blue dye AdvReac Intermediate Redness of Verified 05/06/24 16:32 Skin red dye AdvReac Intermediate Redness of Verified 05/06/24 16:32 Skin Sulfa (Sulfonamide AdvReac Hives Verified 05/04/24 20:11 Antibiotics) Assessment & Plan Assessment & Plan (1) Schizoaffective disorder: Status: Acute Code(s): F25.9 - Schizoaffective disorder, unspecified Plan Patient is a 19-year-old female with history of schizoaffective disorder who [place] [facility] [place] to [place] ideation secondary to increased depression. Plan: CV 15 minute safety checks Continue home medications Encourage groups Discharge planning 05/07: Pt reports feeling better than yesterday. She reports sleeping well last night. attending groups. Showered. Pt denies thoughts of cutting today. Continue current tx plan. 05/08: continue current management and treatment plan. 05/09: Switch Zyprexa PRN to Seroquel PRN. Continue current management and treatment plan. 05/10: Continue current management and treatment plan. 05/11: Pt reports feeling good ; she reports feeling better than when I first came here . pt denies SI/HI/VH/AH. [place] level 1.13 on 05/11/24. Pt reports she is looking forward to returning to [employer]. Plan for discharge this week. Patient educated on: diagnosis, medication risk/benefits and therapeutic strategies Informed Consent: understands Reason for continued inpatient stay Substantial Risk for: med/psych decompensation Time Spent With Patient Time: Total time managing care of this patient today _20___ minutes.
[2024-05-11 10:18] LABS: Lithium 1.13 mmol/L (0.60-1.20)
[2024-05-11 10:46] LABS: Anion Gap 14 (12-20); Blood Urea Nitrogen 9 mg/dL (9-16); Carbon Dioxide 23 mmol/L (22-29); Chloride 107 mmol/L (96-108); Creatinine Clr Calc Pharmacy 146.2; Estimated Glomerular Filt Rate > 60; Potassium 4.1 mmol/L (3.3-5.1); Sodium 140 mmol/L (135-145); TSH reflex Free T4 2.31 uIU/mL (0.32-4.0)
[2024-05-11 20:00] VITALS: BP 143/79; PULSE 105; RESP 16; TEMP 37.1; O2SAT 100
[2024-05-11] MEDS: Lithium Carbonate ER 450 MG TABLET.ER 900 MG PO (22:06)
[2024-05-12 08:00] VITALS: BP 115/59; PULSE 109; RESP 16; TEMP 36.3; O2SAT 97
--- NOTE | 2024-05-12 09:54 | P.PNPSI_ITS ---
Subjective Subjective Date of Service: 05/12/24 Reason For Visit: Crisis Subjective Notes: Conditional Voluntary Interim History: Reviewed with Dr. Pena. Pt continues to report feeling good ; pt denies SI/HI/VH/AH. She reports sleeping well. Pt reports she plans on following up with outpatient providers and being medication compliant. Pt to discharge to [facility] tomorrow; she is looking forward to returning. Medication Compliance: Yes Side effects from medications: No Attending Groups: Yes Review of Systems Constitutional: Reports as per HPI Eyes: Reports as per HPI Reports as per HPI Cardiovascular: Reports as per HPI Respiratory: Reports as per HPI Gastrointestinal: Reports as per HPI Genitourinary: Reports as per HPI Musculoskeletal: Reports as per HPI Skin/Breast: Reports as per HPI Reports as per HPI Psychiatric: Reports as per HPI Endocrine: Reports as per HPI Hematologic/Lymphatic: Reports as per HPI Allergic/Immunologic: Reports as per HPI Mental Status Exam Mental Status Exam Narrative: Pt is alert and oriented; behavior is cooperative, friendly and calm; dressed in casual attire; mood is described as good ; eye contact appropriate; Speech is normal rate, volume and not pressured; thought process is organized; Thought content is on tx; denies SI/HI/VH/AH. Diagnostics Vital Signs (24Hr): Vital Signs - 24 hr 05/11/24 20:00 05/12/24 08:00 Temperature 98.8 F 97.4 F Pulse Rate 105 H 109 H Respiratory Rate 16 16 Blood Pressure 143/79 H 115/59 L Pulse Oximetry 100 97 Oxygen Delivery Method Room Air Room Air BMI result Body Mass Index 47.1 Labs 05/04/24 20:27 05/11/24 09:56 Labs: Laboratory Results - last 48 hr 05/11/24 09:56 Sodium 140 Potassium 4.1 Chloride 107 Carbon Dioxide 23 Anion Gap 14 BUN 9 Creatinine 0.71 Estim Creat Clear Calc 146.2 Estimated GFR > 60 TSH 2.31 [place] 1.13 Medications Medications Current Medications Acetaminophen (Acetaminophen 325 Mg Tablet) 650 mg PO Q6H PRN PRN Reason: Headache/Pain Mild Scale (1-3) Al Hydroxide/Mg Hydroxide (Magnesium Hydrox/Alum Hydrox 30 Ml Oral.Susp) 30 ml PO Q6H PRN PRN Reason: Heartburn/Nausea Hydroxyzine HCl (Hydroxyzine Hcl 25 Mg Tablet) 25 mg PO BID PRN PRN Reason: anxiety Last Admin: 05/10/24 19:02 Dose: 25 mg [place] Carbonate ([place] Carbonate Er 450 Mg Tablet.Er) 450 mg PO DAILY [facility] Last Admin: 05/11/24 08:42 Dose: 450 mg [place] Carbonate ([place] Carbonate Er 450 Mg Tablet.Er) 900 mg PO BEDTIME [facility] Last Admin: 05/11/24 22:06 Dose: 900 mg Magnesium Hydroxide (Milk Of Magnesia 30 Ml Oral.Susp) 30 ml PO DAILY PRN PRN Reason: Constipation Quetiapine Fumarate (Quetiapine Fumarate 50 Mg Tablet) 50 mg PO BID PRN PRN Reason: Hallucinations Last Admin: 05/10/24 23:18 Dose: 50 mg Trazodone HCl (Trazodone Hcl 50 Mg Tablet) 50 mg PO BEDTIME MRX1 PRN PRN Reason: Insomnia Allergies Allergies Allergy/AdvReac Type Severity Reaction Status Date / Time blue dye AdvReac Intermediate Redness of Verified 05/06/24 16:32 Skin red dye AdvReac Intermediate Redness of Verified 05/06/24 16:32 Skin Sulfa (Sulfonamide AdvReac Hives Verified 05/04/24 20:11 Antibiotics) Assessment & Plan Assessment & Plan (1) Schizoaffective disorder: Status: Acute Code(s): F25.9 - Schizoaffective disorder, unspecified Plan Patient is a 19-year-old female with history of schizoaffective disorder who self presented to [facility] [place] [facility] due to suicidal ideation secondary to increased depression. Plan: CV 15 minute safety checks Continue home medications Encourage groups Discharge planning 05/07: Pt reports feeling better than yesterday. She reports sleeping well last night. attending groups. Showered. Pt denies thoughts of cutting today. Continue current tx plan. 05/08: continue current management and treatment plan. 05/09: Switch Zyprexa PRN to Seroquel PRN. Continue current management and treatment plan. 05/10: Continue current management and treatment plan. 05/11: Pt reports feeling good ; she reports feeling better than when I first came here . pt denies SI/HI/VH/AH. [place] level 1.13 on 05/11/24. Pt reports she is looking forward to returning to [facility]. Plan for discharge this week. 05/12: Pt continues to report feeling good ; pt denies SI/HI/VH/AH. She reports sleeping well. Pt reports she plans on following up with outpatient providers and being medication compliant. Pt to discharge to [facility] tomorrow; she is looking forward to returning. Patient educated on: diagnosis, medication risk/benefits and therapeutic strategies Reason for continued inpatient stay Substantial Risk for: stable for discharge Time Spent With Patient Time: Total time managing care of this patient today _20___ minutes.
[2024-05-12] MEDS: Lithium Carbonate ER 450 MG TABLET.ER PO (10:14)
--- NOTE | 2024-05-12 14:48 | PM.PSYDC ---
DS: Providers Provider Date of Service: 05/12/24 Date of admission: 05/05/24 14:48 Date of discharge: 05/13/24 Primary care physician: Unknown Physician Admitting clinician: Mouna Soriano Attending physician on admission: Davis Pena Attending physician on discharge: Davis Pena Discharging clinician: Mouna Soriano DS: Diagnosis Discharge Diagnosis (1) Schizoaffective disorder: Status: Acute DS: Medications Discharge Medications Home Medications: Previous Rx's ?Medication ?Instructions ?Recorded hydroxyzine pamoate 25 mg capsule 25 mg PO BID PRN anxiety 30 days 05/12/24 #60 caps lithium carbonate 450 mg 450 mg PO DAILY 30 days #30 tabs 05/12/24 tablet,extended release lithium carbonate 450 mg 900 mg (2 x 450 mg) PO BEDTIME 05/12/24 tablet,extended release days #60 tabs quetiapine 50 mg tablet 50 mg PO BID PRN Hallucinations 30 05/12/24 days #60 tabs Mental Status Exam Mental Status Exam Narrative: Pt is alert and oriented; behavior is cooperative, friendly and calm; dressed in casual attire; mood is described as good ; eye contact appropriate; Speech is normal rate, volume and not pressured; thought process is organized; Thought content is on tx; denies SI/HI/VH/AH. Data Data Completed and Pending Completed studies during hospitalization [Text1]: 05/06/24 05/11/24 09:39 09:56 Sodium 143 140 Potassium 3.8 4.1 Chloride 110 H 107 Carbon Dioxide 21 L 23 Anion Gap 16 14 BUN 9 9 Creatinine 0.76 0.71 Estim Creat Clear Calc 136.6 146.2 Estimated GFR > 60 > 60 Fasting Glucose 139 H Calcium 9.9 Total Bilirubin 0.4 AST 36 H ALT 55 H Alkaline Phosphatase 117 Total Protein 7.0 Albumin 4.1 Triglycerides 160 H Cholesterol 144 LDL Cholesterol, Calc 86 HDL Cholesterol 26 L TSH 2.31 [place] 1.13 DS: Summary Hospital Course Hospital Course: Patient is a 19-year-old female with history of schizoaffective disorder who self presented [place] [facility] due to suicidal ideation secondary to increased depression. Per crisis report, patient reports a recent medication change and believes it is no longer working. Patient was taken off olanzapine a few months ago at the request of patient due to weight gain and her lithium was increased. [place] level was 0.14. Patient reported suicidal ideation with plans to cut herself. Patient reports last time she cut was December 2023. She reports multiple inpatient psychiatric hospitalizations. denies HI/VH/AH. Per patient's mother, she is medication compliant. Patient has a history of 3 prior suicide attempts by intentional overdose. Two of the suicide attempts were in her adolescents and another was a year ago. Patient has a prescriber who is located in [place], [place]. She does not currently have an outpatient therapist but would like to be referred to one through [facility]. Patient reports sleeping well at night and denies any nightmares. She reports not having any hallucinations and months . During admission assessment, alert and oriented x3, calm and cooperative. Patient stated, I came to the hospital because I feel like my meds are not working and I was not feeling safe where I was. I don't feel like the medication was helping with my depression. I was having thoughts to cut myself, not suicide. Patient reports she forgets to take her medications at times. Patient reports the stress of [facility] and all the drama there made me want to cut . Patient denies any substance use. Utox negative. Patient stated, I just want to make sure my meds are okay and I want to get a therapist through [facility] . Patient denies SI/HI/VH/AH. Plan: CV 15 minute safety checks Continue home medications Encourage groups Discharge planning Pt reports feeling better than yesterday. She reports sleeping well last night. attending groups. Showered. Pt denies thoughts of cutting today. Continue current tx plan. Switch Zyprexa PRN to Seroquel PRN. Continue current management and treatment plan. Pt reports feeling good ; she reports feeling better than when I first came here . pt denies SI/HI/VH/AH. [place] level 1.13 on 05/11/24. Pt reports she is looking forward to returning to [facility]. Plan for discharge this week. Pt continues to report feeling good ; pt denies SI/HI/VH/AH. She reports sleeping well. Pt reports she plans on following up with outpatient providers and being medication compliant. Pt to discharge to [facility] tomorrow; she is looking forward to returning. Time spent discussing smoking cessation with patient: 3 to 10 minutes Status at Discharge Cognitive/behavioral status at discharge: Patient was interviewed prior to discharge and found to be fully oriented and without SI or HI. Patient has insight and demonstrates good judgment in terms of wanting to pursue treatment. Patient has a safety plan that includes presenting to the closest ER or calling 911 if feeling unsafe. Functional status at discharge: independent ambulation Overall status at discharge: patient is back to baseline Time Spent with Patient Time attestation: Total time managing care of this patient today _20___ minutes. Time spent: Less than 30 minutes Discharge Plan Discharge Anticipated Discharge Date/Time: 05/12/24 11:30 Patient Disposition: Home, Self-Care Discharge Diagnosis: Schizoaffective d/o Referrals: [facility] [Provider Group] - 1 Week ([facility] was added to patients chart. Please call [phone] for follow up appt.) Discharge Medications: New quetiapine 50 mg Tablet 50 mg PO BID PRN (Reason: Hallucinations) 30 Days Qty: 60 0RF Continued lithium carbonate 450 mg tablet extended release 900 mg PO BEDTIME 30 Days Qty: 60 0RF hydroxyzine pamoate 25 mg capsule 25 mg PO BID PRN (Reason: anxiety) 30 Days Qty: 60 0RF Changed lithium carbonate 450 mg tablet extended release 450 mg PO DAILY 30 Days Qty: 30 0RF Discharge Orders: Discharge Order (Routine); Ordered 05/13/24 Ordered By: Mouna Soriano Diet: Regular diet Activity on Discharge: As tolerated Stand Alone Forms: Patient Portal Discharge page Print Language: Citizen Of [place] Care Plan Goals: Maintain mood and safe behaviors Take medications as prescribed Practice coping skills Continue with outpatient providers and reach out to them as needed Health Concerns: Mood stability and behaviors Plan of Treatment: Follow up with your PCP, psychiatric provider and other outpatient providers regarding above concerns Take medications as prescribed Assessment: Patient was interviewed prior to discharge and found to be fully oriented and without SI or HI. Patient has insight and demonstrates good judgment in terms of wanting to pursue treatment. Patient has a safety plan that includes presenting to the closest ER or calling 911 if feeling unsafe.
[2024-05-12 20:00] VITALS: BP 129/71; PULSE 98; RESP 16; TEMP 36.7; O2SAT 100
[2024-05-12] MEDS: Lithium Carbonate ER 450 MG TABLET.ER 900 MG PO (21:58)
[2024-05-13] MEDS: QUEtiapine Fumarate 50 MG TABLET PO (01:38)
[2024-05-13 07:28] LABS: Estimated Average Glucose 123 mg/dL; Hemoglobin A1c % 5.9 % (<6.0)
[2024-05-13 07:37] VITALS: BP 131/66; PULSE 89; RESP 16; TEMP 36.6; O2SAT 96
[2024-05-13] MEDS: Lithium Carbonate ER 450 MG TABLET.ER PO (09:38)
[2024-05-13] MEDS: Flu Vacc TS2024-25(6mos up)/PF 0.5 ML SYRINGE IM (10:51)
== END 2024-05-13 11:31 | disposition home or self-care (01) | DRG 750 ==
LOC: HO.ED 22:51 → HO.PADLT16 05-05 15:32
PROVIDERS: Physician Assistant; Admitting Provider Psychiatry & Neurology Psychiatry; Emergency Provider Internal Medicine; Responsible Provider Registered Nurse; Visit Provider Psychiatry & Neurology Psychiatry
DX: F25.9 Schizoaffective disorder, unspecified (principal); R45.851 Suicidal ideations; Z23 Encounter for immunization; Z91.52 Personal history of nonsuicidal self-harm; Z79.899 Other long term (current) drug therapy
CPT/HCPCS: 36415; 80051; 80053; 80061; 80178; 80307; 81001; 81025; 82565; 83036; 83735; 84443; 84520; 85025; 90656; 93005; 99285; S9485

== ENCOUNTER → 2024-05-05 14:48 | Outpatient (BNV) | payer MEDICAID, OTHER, SELFPAY | PROVIDERS: Admitting Provider Psychiatry & Neurology Psychiatry; Emergency Provider Internal Medicine; Responsible Provider Registered Nurse; Visit Provider Registered Nurse | DX: F25.1 Schizoaffective disorder, depressive type (principal) | CPT/HCPCS: 99231; 99232; 99233 ==

== ENCOUNTER 2024-05-27 14:07 | Outpatient (REF) | payer MEDICAID, SELFPAY ==
[2024-05-27 17:26] LABS: Lithium < 0.10 mmol/L (0.60-1.20)
== END 2024-05-27 14:08 | disposition home or self-care (01) ==
LOC: HO.LAB 14:07
PROVIDERS: Visit Provider Nurse Practitioner Psychiatric/Mental Health
DX: F31.32 Bipolar disorder, current episode depressed, moderate (principal)
CPT/HCPCS: 36415; 80178

== ENCOUNTER 2024-06-30 11:18 | Outpatient (REF) | payer MEDICAID, SELFPAY ==
[2024-06-30 12:32] LABS: Lithium < 0.10 mmol/L (0.60-1.20)
== END 2024-06-30 11:19 | disposition home or self-care (01) ==
LOC: HO.LAB 11:18
PROVIDERS: Visit Provider Nurse Practitioner Psychiatric/Mental Health
DX: F31.32 Bipolar disorder, current episode depressed, moderate (principal); Z79.899 Other long term (current) drug therapy
CPT/HCPCS: 36415; 80178

== ENCOUNTER 2024-07-23 18:51 | Emergency (ER) | payer MEDICAID, SELFPAY ==
[2024-07-23 19:02] VITALS: BP 142/88; PULSE 107; RESP 20; TEMP 36.9; O2SAT 98; BMI 46.5
--- NOTE | 2024-07-23 19:04 | ED.GENADULT ---
HPI - General Adult General Chief complaint: General Medical Stated complaint: Adverse reaction to current medication Time Seen by Provider: 07/23/24 21:13 Source: patient Mode of arrival: ambulatory Limitations: no limitations History of Present Illness ED Provider: dany GUERRERO narrative: Patient's history of depression schizoaffective disorder started on Concerta which she took today after long time started feeling anxious with palpitation on arrival patient's heart rate was 107 having racing thoughts, dizziness headache no chest pain no shortness a breath Related Data Previous Rx's ?Medication ?Instructions ?Recorded hydroxyzine pamoate 25 mg capsule 25 mg PO BID PRN anxiety 30 days 05/12/24 #60 caps lithium carbonate 450 mg 450 mg PO DAILY 30 days #30 tabs 05/12/24 tablet,extended release lithium carbonate 450 mg 900 mg (2 x 450 mg) PO BEDTIME 05/12/24 tablet,extended release days #60 tabs quetiapine 50 mg tablet 50 mg PO BID PRN Hallucinations 30 05/12/24 days #60 tabs Allergies Allergy/AdvReac Type Severity Reaction Status Date / Time blue dye AdvReac Intermediate Redness of Verified 07/23/24 19:04 Skin red dye AdvReac Intermediate Redness of Verified 07/23/24 19:04 Skin Sulfa (Sulfonamide AdvReac Hives Verified 07/23/24 19:04 Antibiotics) Review of Systems Review of Systems: Yes all other systems are reviewed and are negative PMFSH Social History Social History Household Members: None Housing: Homeless Patient Tobacco Use Status: Never used Tobacco Smoked in Last 30 Days: No Use of substances other than those prescribed or required for medical reasons: No Substance Use Type: Marijuana Advance Directives: No Advance Directives Information Provided: No Do you have a plan to hurt others: No Plan Patient : No service: No Sexual orientation: Straight/Heterosexual Physical Exam ED Vital Signs: Vital Signs - 24 hr 07/23/24 19:02 07/23/24 20:58 07/23/24 22:54 Temperature 98.4 F 98.7 F 98.7 F Pulse Rate 107 H 90 90 Respiratory Rate 20 18 18 Blood Pressure 142/88 H 135/85 135/85 Pulse Oximetry 98 98 98 Oxygen Delivery Method Room Air Room Air Room Air BMI result Body Mass Index 46.5 Appearance: Alert. Oriented X3. No acute distress. Anxious Eyes: No pallor or icterus ENT: Pharynx normal. Oral Mucosa moist Neck: Normal inspection. Neck supple. CVS: Normal heart rate and rhythm. Pulses normal. Respiratory: No respiratory distress. Equal air entry bilateral, no wheezing/rales/rhonchi Abdomen: Soft and nontender. Bowel sounds are present, no mass palpable, no CVA tenderness Skin: Skin warm and dry. Normal skin color. Normal skin turgor. Extremities: No lower extremity edema. No calf tenderness Neuro: Oriented X 3. Course Course Course Narrative: Patient is a 19-year-old female who presents emergency department for evaluation, expressing concern for possible adverse reaction to medications. She has been prescribed lithium for some time. She reports that she took Concerta this morning at approximately 10:00 (had not taken this for about for years, has never taken it when also prescribed lithium). She is concern that there may be a reaction between the 2. Approximately 20 minutes later she states that she began to feel unwell, ?beginning to feel manic?. Reporting all day with constant dizziness, lightheadedness. a near passing out sensation, diffuse headache, ?spacing out?, racing thoughts. Denies any recent ill leg symptoms. Denies any vision changes, neck pain, chest pain, shortness of breath Plan: Serum labs, EKG Medications Administered Discontinued Medications Generic Name Dose Route Start Last Admin Trade Name Freq PRN Reason Stop Dose Admin Lorazepam 2 mg 07/23/24 21:23 07/23/24 21:41 Lorazepam 1 Mg Tablet PO 07/23/24 21:24 2 mg ONCE ONE Administration Medical Decision Making Medical Decision Making [facility] Narrative: Patient's anxiety attack after taking Concerta improved after taking Ativan labs are stable discharge patient home advised to follow up with therapist Lab Data [facility] Lab Attestation statement: I reviewed the patient's lab results. 07/23/24 19:34 07/23/24 19:34 Labs: Lab Results 07/23/24 07/23/24 07/23/24 Range/Units 19:33 19:34 19:40 WBC 13.2 H (4.8-10.8) X10*3/uL RBC 5.14 (4.20-5.50) X10*6/uL Hgb 13.6 (12.0-16.0) g/dl Hct 42.3 (37.0-47.0) % MCV 82.3 (80.0-98.0) fL MCH 26.5 L (27.0-33.0) pg MCHC 32.2 (31.0-35.0) g/dl RDW 12.8 (11.0-16.0) % Plt Count 366 (160-400) X10*3/uL MPV 10.3 (9.4-12.3) fL Immature Gran % (Auto) 0.4 (0.0-0.4) % Neut % (Auto) 60.6 (45-73) % Lymph % (Auto) 32.6 (20-40) % [place] % (Auto) 4.6 (2-11) % Eos % (Auto) 1.3 (0-4) % Baso % (Auto) 0.5 (0-2) % Lymph # (Auto) 4.3 (1.2-4.9) X10*3/uL [place] # (Auto) 0.6 (0.1-1.2) X10*3/uL Eos # (Auto) 0.2 (0.0-0.4) X10*3/uL Baso # (Auto) 0.1 (0.0-0.2) X10*3/uL Abs Immat Gran (auto) 0.05 H (0.00-0.03) X10*3/uL Absolute Neuts (auto) 8.0 (2.0-8.3) x10*3/uL Absolute Nucleated RBC 0.000 (0.0-0.012) X10*3/uL Nucleated RBC % (auto) 0.0 (0.0-0.2) /100WBC Sodium 141 (135-145) mmol/L Potassium 3.6 (3.3-5.1) mmol/L Chloride 110 H (96-108) mmol/L Carbon Dioxide 22 (22-29) mmol/L Anion Gap 13 (12-20) BUN 9 (9-16) mg/dL Creatinine 0.76 (0.5-1.4) mg/dL Estim Creat Clear Calc 135.5 Estimated GFR > 60 Random Glucose 100 (60-115) mg/dL Calcium 10.2 (8.4-10.2) mg/dL Magnesium 2.3 (1.6-2.6) mg/dL Total Bilirubin 0.4 (0.0-1.0) mg/dL AST 48 H (5-31) U/L ALT 61 H (0-31) U/L Alkaline Phosphatase 122 H (39-117) U/L Total Protein 7.9 (6.5-8.0) g/dL Albumin 4.7 (3.5-5.0) g/dL Urine Test NEGATIVE (NEGATIVE) Influenza Type A (PCR) NEGATIVE (Negative) Influenza Type B (PCR) NEGATIVE (Negative) RSV RNA Qual (PCR) NEGATIVE (Negative) SARS-CoV-2 RNA (RT-PCR) NEGATIVE (Negative) Discharge Plan Discharge Clinical Impression: Anxiety Patient Disposition: Home, Self-Care Instructions: Anxiety (ED) Additional Instructions: Likely you have the side effect of Concerta Follow up with your provider about the use of the medication Prescriptions: No Action quetiapine 50 mg Tablet 50 mg PO BID PRN (Reason: Hallucinations) 30 Days Qty: 60 0RF lithium carbonate 450 mg tablet extended release 450 mg PO DAILY 30 Days Qty: 30 0RF lithium carbonate 450 mg tablet extended release 900 mg PO BEDTIME 30 Days Qty: 60 0RF hydroxyzine pamoate 25 mg capsule 25 mg PO BID PRN (Reason: anxiety) 30 Days Qty: 60 0RF Interventions: ED Discharge Assessment Last Done: 07/23/24 22:54 Discharge Date/Time: 07/23/24 22:56 Print Language: [place]i
--- NOTE | 2024-07-23 19:06 | ECG_ITS ---
Test Reason : DIZZINESS Blood Pressure : / mmHG Vent. Rate : 104 BPM Atrial Rate : 104 BPM P-R Int : 160 ms QRS Dur : 080 ms QT Int : 352 ms P-R-T Axes : 034 061 013 degrees QTc Int : 462 ms Sinus tachycardia Otherwise normal ECG When compared with ECG of 05-MAY-2024 14:22, Vent. rate has increased BY 41 BPM Referred By: Gertrude Woods Electronically Signed By:Fco Escobar
[2024-07-23 19:38] LABS: MANUAL DIFF FLAG NO
[2024-07-23 19:47] LABS: UPreg QC Valid YES; Urine Pregnancy NEGATIVE (NEGATIVE)
[2024-07-23 19:54] LABS: Alanine Aminotransferase 61 U/L (0-31); Albumin Level 4.7 g/dL (3.5-5.0); Alkaline Phosphatase 122 U/L (39-117); Anion Gap 13 (12-20); Aspartate Amino Transferase 48 U/L (5-31); Bilirubin Total 0.4 mg/dL (0.0-1.0); Blood Urea Nitrogen 9 mg/dL (9-16); Calcium 10.2 mg/dL (8.4-10.2); Carbon Dioxide 22 mmol/L (22-29); Chloride 110 mmol/L (96-108); Creatinine Clr Calc Pharmacy 135.5; Estimated Glomerular Filt Rate > 60; Glucose Random 100 mg/dL (60-115); Magnesium 2.3 mg/dL (1.6-2.6); Potassium 3.6 mmol/L (3.3-5.1); Sodium 141 mmol/L (135-145); Total Protein 7.9 g/dL (6.5-8.0)
[2024-07-23 20:09] LABS: Basophils Absolute Auto 0.1 X10*3/uL (0.0-0.2); Basophils Percent Auto 0.5 % (0-2); Eosinophils Absolute Auto 0.2 X10*3/uL (0.0-0.4); Eosinophils Percent Auto 1.3 % (0-4); Hematocrit 42.3 % (37.0-47.0); Hemoglobin 13.6 g/dl (12.0-16.0); Imm Gran Abs Auto 0.05 X10*3/uL (0.00-0.03); Imm Gran Pct Auto 0.4 % (0.0-0.4); Lymphocytes Absolute Auto 4.3 X10*3/uL (1.2-4.9); Lymphocytes Percent Auto 32.6 % (20-40); Mean Corpuscular HGB Conc 32.2 g/dl (31.0-35.0); Mean Corpuscular Hemoglobin 26.5 pg (27.0-33.0); Mean Corpuscular Volume 82.3 fL (80.0-98.0); Mean Platelet Volume 10.3 fL (9.4-12.3); Monocytes Absolute Auto 0.6 X10*3/uL (0.1-1.2); Monocytes Percent Auto 4.6 % (2-11); Neutrophils Percent Auto 60.6 % (45-73); Platelet Count 366 X10*3/uL (160-400); Red Blood Count 5.14 X10*6/uL (4.20-5.50); Red Cell Distribution Width 12.8 % (11.0-16.0); White Blood Count 13.2 X10*3/uL (4.8-10.8)
[2024-07-23 20:17] LABS: Influenza A PCR NEGATIVE (Negative); Influenza B PCR NEGATIVE (Negative); Resp Syncy Virus RNA Qual PCR NEGATIVE (Negative); SARS COV2 PCR INHOUSE NEGATIVE (Negative)
[2024-07-23 20:58] VITALS: BP 135/85; PULSE 90; RESP 18; TEMP 37.1; O2SAT 98
--- NOTE | 2024-07-23 20:59 | MHC.EDTECH ---
This tech assumed care of patient at this time,round and vitals completed,patient is sitting up on stretcher,appears comfortable,call porras in reach
[2024-07-23] MEDS: LORazepam 1 MG TABLET 2 MG PO (21:41)
[2024-07-23 22:54] VITALS: BP 135/85; PULSE 90; RESP 18; TEMP 37.1; O2SAT 98
== END 2024-07-23 22:56 | disposition home or self-care (01) ==
PROVIDERS: Nurse Practitioner Family; Emergency Provider Internal Medicine
DX: F41.9 Anxiety disorder, unspecified (principal); R00.2 Palpitations; R42 Dizziness and giddiness; R51.9 Headache, unspecified; Z03.818 Encounter for observation for suspected exposure to other biological agents ruled out
CPT/HCPCS: 0241U; 80053; 81025; 83735; 85025; 93005; 99283; 99284

== ENCOUNTER → 2024-07-23 19:06 | Outpatient (BNV) | payer MEDICAID, SELFPAY | PROVIDERS: Emergency Provider Internal Medicine; Visit Provider Internal Medicine Cardiovascular Disease | DX: R42 Dizziness and giddiness (principal) | CPT/HCPCS: 93010 ==

== ENCOUNTER 2024-10-15 08:30 | Emergency (ER) | payer MEDICAID, SELFPAY ==
--- NOTE | ~2024-10-15 | XR_ITS ---
EXAMINATION: XR CHEST CLINICAL INFORMATION: cp and cough COMPARISON: None available. TECHNIQUE: 2 views of the chest were obtained. FINDINGS: No consolidation pleural fissure pneumothorax. Cardiomediastinal silhouette is normal. Osseous structures are intact. XR/XR chest 2V IMPRESSION: No acute airspace disease. Electronically signed by: Jaswinder Foster MD 10/15/2024 09:02 AM EST
[2024-10-15 08:32] VITALS: BP 131/76; PULSE 95; RESP 19; O2SAT 98; BMI 47.0
[2024-10-15 09:56] LABS: Influenza A PCR NEGATIVE (Negative); Influenza B PCR NEGATIVE (Negative); Resp Syncy Virus RNA Qual PCR NEGATIVE (Negative); SARS COV2 PCR INHOUSE NEGATIVE (Negative)
--- NOTE | 2024-10-15 13:19 | ED.GENADULT ---
HPI - General Adult General Chief complaint: Upper Respiratory Symptoms Stated complaint: Cough Time Seen by Provider: 10/15/24 13:19 Source: patient Limitations: no limitations History of Present Illness ED Provider: Natalie Burrell PA-C HPI narrative: 19-year-old female with a history of schizoaffective disorder and depression presents with cough and cold symptoms x1 day. Patient has developed a dry cough, without a fever. Denies chest pain or shortness of breath. Patient does have sick contacts with viral syndrome. No active GI symptoms. Related Data Previous Rx's ?Medication ?Instructions ?Recorded hydroxyzine pamoate 25 mg capsule 25 mg PO BID PRN anxiety 30 days 05/12/24 #60 caps lithium carbonate 450 mg 450 mg PO DAILY 30 days #30 tabs 05/12/24 tablet,extended release lithium carbonate 450 mg 900 mg (2 x 450 mg) PO BEDTIME 05/12/24 tablet,extended release days #60 tabs quetiapine 50 mg tablet 50 mg PO BID PRN Hallucinations 30 05/12/24 days #60 tabs Allergies Allergy/AdvReac Type Severity Reaction Status Date / Time blue dye AdvReac Intermediate Redness of Verified 10/15/24 08:34 Skin red dye AdvReac Intermediate Redness of Verified 10/15/24 08:34 Skin Sulfa (Sulfonamide AdvReac Hives Verified 10/15/24 08:34 Antibiotics) Review of Systems Review of Systems: Yes all other systems are reviewed and are negative Constitutional: Constitutional: Denies fatigue and Denies fever(s) Cardiovascular: Cardiovascular: Denies chest pain and Denies dyspnea Respiratory: Respiratory: Reports cough, Denies dyspnea and Denies wheezing Gastrointestinal: Gastrointestinal: Denies diarrhea, Denies nausea and Denies vomiting Endocrine: Endocrine: Denies fatigue Allergic/Immunologic: Allergic/Immunologic: Denies wheezing PMF Past Medical History Attestation statement: The following information was validated with the patient. Social History Social History Household Members: None Housing: Homeless Patient Tobacco Use Status: Never used Tobacco Substance Use Type: Marijuana service: No Sexual orientation: Straight/Heterosexual Physical Exam ED Vital Signs: Vital Signs - 24 hr 10/15/24 08:32 Pulse Rate 95 Respiratory Rate 19 Blood Pressure 131/76 Pulse Oximetry 98 Oxygen Delivery Method Room Air BMI result Body Mass Index 47.0 Const Other: Alert Orientation/consciousness: patient oriented x3 Resp Other: Nonlabored respirations, lungs clear to auscultation Cardio Other: Normal peripheral perfusion Skin Other: Warm dry no rash Neuro General: patient oriented x3, no focal motor deficits and CN's II-XI intact bilaterally Psych Other: Calm cooperative Medical Decision Making Medical Decision Making MDM Narrative: 19-year-old female with a history of schizoaffective disorder and depression presents with cough and cold symptoms x1 day. Patient has developed a dry cough, without a fever. Denies chest pain or shortness of breath. Patient does have sick contacts with viral syndrome. No active GI symptoms. No relevant chronic issues History: Per patient I have considered the following differential diagnoses: Viral syndrome, bronchitis, bronchospasm, pneumonia Plan: Chest x-ray and viral panel ordered from triage, everything is negative. Her exam was unremarkable. She can follow up with primary care as needed. I have independently reviewed the following tests: Labs: Viral panel negative Chest x-ray: XR/XR chest 2V IMPRESSION: No acute airspace disease. Electronically signed by: Jaswinder Foster MD 10/15/2024 09:02 AM [facility] Lab Data Labs: Lab Results 10/15/24 Range/Units 08:53 Influenza Type A (PCR) NEGATIVE (Negative) Influenza Type B (PCR) NEGATIVE (Negative) RSV RNA Qual (PCR) NEGATIVE (Negative) SARS-CoV-2 RNA (RT-PCR) NEGATIVE (Negative) Discharge Plan Discharge Clinical Impression: Acute viral syndrome Patient Disposition: Home, Self-Care Instructions: Viral Syndrome (ED) Additional Instructions: You were screened for influenza a and B, RSV and COVID. The viral panel was negative. The chest x-ray is clear. You have yet another respiratory virus causing your symptoms. See home care instructions. Follow up with your primary care provider as needed. Prescriptions: No Action quetiapine 50 mg Tablet 50 mg PO BID PRN (Reason: Hallucinations) 30 Days Qty: 60 0RF lithium carbonate 450 mg tablet extended release 450 mg PO DAILY 30 Days Qty: 30 0RF lithium carbonate 450 mg tablet extended release 900 mg PO BEDTIME 30 Days Qty: 60 0RF hydroxyzine pamoate 25 mg capsule 25 mg PO BID PRN (Reason: anxiety) 30 Days Qty: 60 0RF Print Language: [place]ralt[place]
[2024-10-15 13:29] VITALS: BP 131/76; PULSE 95; RESP 19; TEMP 37.1; O2SAT 98
--- OUTSIDE RECORDS SUMMARY | 2024-10-15 13:54 | XMS_ITS | Data Portability ---
Author Organization [facility] Address [address] [place] [address] Care Team Providers Care Plush Finisher Name Role Phone TRINA CHÁVEZ Primary Care Provider TRINA CHÁVEZ Referring Provider LANCE MCKEON Pediatric Keyliner ENIO DENNIS Keyliner CRYSTAL RUDD Cardiovascular Technician ADIA WHITE Pediatric Neurologist [phone] [facility] Neuro psychologist Assessment No assessment recorded. Plan of Treatment Reminders Order Date Submit Date Provider Last Modified By Organization Details Last Modified Time Details Appointments None recorde d. Lab CMP, serum or plasma 2022 023 [facility] Patient Reg, [address] [place], [address], 3 23:22:39 hepatit is C virus Ab, serum 2022 023 [facility], [address] [place], [address], 3 22:03:06 lipid panel, serum 2022 023 [facility] Patient [facility], [address] [place], [address], 3 23:22:42 ferriti n, serum or plasma 2022 023 [facility] Patient Reg, [address] [place], [address], 3 23:29:13 iron panel, serum or plasma 2022 023 [facility] Patient [facility], [address] [place], [address], 3 23:22:40 CBC 2022 023 [facility] Patient [facility], [address] [place], [address], 3 19:42:09 25-hydr oxyvita min D2 + 25-hydr oxyvita min D3, QN, serum or plasma 2022 023 [facility] Patient [facility], [address] [place], [address], 3 22:11:45 HbA1c (hemogl obin A1c), blood 2022 023 [facility] Patient Reg, [address] [place], [address], 3 19:57:04 CBC w/ auto diff [address] Patient Reg, [address] [place], [address], 4 13:13:33 HbA1c (hemogl obin A1c), blood [address] Patient Reg, [address] [place], [address], 4 13:13:33 CMP, serum or plasma [address] Patient Reg, [address], [place], [address], 4 13:13:33 HbA1c (hemogl obin A1c), blood 2024 025 [facility] Patient Reg, [address] [place], [address], 5 08:22:24 lipid panel, serum 2024 025 [facility] Patient Reg, [address] [place], [address], 5 21:35:29 CMP, serum or plasma 2024 025 [facility] Patient Reg, [address] [place], [address], 5 08:22:25 CBC w/ auto diff 2024 025 [facility] Patient Reg, [address] [place], [address], 5 08:22:25 Referral medical nutriti on therapy referra l [address] (Nut[facility] Services), [address] [place], [address], 4 09:24:25 neurops ycholog ist referra l 2024 025 [facility], [address], [place], [address], 5 11:05:24 Procedures None recorde d. Surgeries None recorde d. Imaging None recorde d. Medication Orders pantopr azole 20 mg tablet, delayed release 2022 023 [facility], [address] [place], [address], 3 11:10:16 aripipr azole 5 mg tablet 2022 023 [email or web address] [facility], [address] [place], [address], 3 11:02:09 clonidi ne HCl 0.1 mg tablet 2022 023 [email or web address] [facility], [address] [place], [address], 3 11:02:21 lamotri gine 25 mg tablet [address] [facility], [address] [place], [address], 3 11:09:57 lithium carbona te 300 mg capsule [address] [facility], [address] [place], [address], 5 16:30:22 olanzap ine 15 mg tablet 2022 023 [email or web address] [facility], [address] [place], [address], 4 10:00:34 hydroxy zine HCl 25 mg tablet 2022 023 [email or web address] [facility], [address] [place], [address], 4 15:22:30 betamet hasone valerat e 0.1 % topical cream 2022 023 [facility], [address] [place], [address], 3 11:31:40 betamet hasone valerat e 0.1 % topical cream 2023 024 [facility], [address] [place], [address], 4 16:41:52 clobeta ren 0.05 % topical ointmen t 2023 024 [facility], [address] [place], [address], 15:35:27 Patient TargetsNo targets recorded. Patient Instructions Encounter Date Encounter Id Patient Instructions Last Modified By Organization Details Last Modified Time 03/26/2023 [id number] learning about mood disorders [email or web address] Not available 03/26/2023 09:19:01 08/26/2023 [id number] bipolar disorder : care instructions Not available 08/26/2023 11:31:31 learning about mood disorders Not available 08/26/2023 11:31:32 lithium Not available 2022 11:31:31 anemia: care instructions Not available 08/26/2023 11:31:32 09/26/2023 [id number] When You Want to Lose Weight: Care Instructions Not available 09/26/2023 16:51:38 10/01/2024 [id number] body mass index: care instructions Not available 10/01/2024 17:09:10 learning about healthy weight Not available 10/01/2024 17:09:10 When You Want to Lose Weight: Care Instructions Not available 10/01/2024 17:09:10 Reason for Referral Medical Nutrition Therapy Re ferral for Obesity Referring Physician: Trina Chávez [facility] Medicine, Encounter Date: 09/26/2023 Neuropsychologist Referral f or Cognitive developmental delay Referring Physician: Trina Chávez [facility], Encounter Date: 10/01/2024 Results Created Date Observation Date Name Description Value Unit Range Abnormal Flag Note LastModifiedBy Organization Detail LastModifiedTime 03/03/2003/03/2023 COMPR EHENS TONY MET. PANEL sodium 145 mmol/ L 136-14 5 normal Not Available [facility] Department [address] [place], [address] 03/03/2023 22:20:05 03/03/20 23 03/03/2023 COMPR EHENS TONY MET. PANEL potassium 3.9 mmol/ L 3.5-5. 1 normal Not Available [facility] [address] [place], [address] 03/03/2023 22:20:05 03/03/20 23 03/03/2023 COMPR EHENS TONY MET. PANEL chloride 112 mmol/ L 98-107 high Not Available [facility] [address] [place], [address] 03/03/2023 22:20:05 03/03/20 23 03/03/2023 COMPR EHENS TONY MET. PANEL carbon dioxide 21.1 mmol/ L 22-29 low Not Available [facility] [address] [place] [address], [address] 03/03/2023 22:20:05 03/03/20 23 03/03/2023 COMPR EHENS TONY MET. PANEL anion gap 16 mmol/ L 10-20 normal Not Available [facility] [address] [place] [address], [address] 03/03/2023 22:20:05 03/03/20 23 03/03/2023 COMPR EHENS TONY MET. PANEL blood urea nitrogen 8 mg/dL 6-20 normal Not Available [facility] Department [address] [place], [address] 03/03/2023 22:20:05 03/03/20 23 03/03/2023 COMPR EHENS TONY MET. PANEL creatinine 0.88 mg/dL 0.50-0 .90 normal Not Available [facility] [address] [place] [address], [address] 03/03/2023 22:20:05 03/03/20 23 03/03/2023 COMPR EHENS TONY MET. PANEL estimated glomerular filt rate 96 GFR Value : mL/mi n/1.7 3 squar e meter s Calcu latio n: CKD-E PI Creat inine Equat ion (2020 ) Chron ic Kidne y Disea se is defin ed as eithe r of the follo wing prese nt for >= 3 month s: - GFR less than 60 mL/mi n/1.7 3 squar e meter s. - Micro album in:Ur . Creat inine Ratio >= 30 mg/g or other marke rs of kidnorm y damag e Kidne y failu re is less than 15 mL/mi n/1.7 3 squar e meter s This test is not perfo rmed in patie nts under the age of 18. Not Available [facility] [address] [place], [address] 03/03/2023 22:20:05 03/03/20 23 03/03/2023 COMPR EHENS TONY MET. PANEL glucose 101 mg/dL 70-106 normal Not Available [facility] [address] [place], [address] 03/03/2023 22:20:05 03/03/20 23 03/03/2023 COMPR EHENS TONY MET. PANEL calcium 9.2 mg/dL 8.6-10 .3 normal Not Available [facility] [address] [place], [address] 03/03/2023 22:20:05 03/03/20 23 03/03/2023 COMPR EHENS TONY MET. PANEL bilirubin total 0.3 mg/dL 0.2-1. 2 normal Not Available [facility] Department [address] [place], [address] 03/03/2023 22:20:05 03/03/20 23 03/03/2023 COMPR EHENS TONY MET. PANEL aspartate amino transferase 20 U/L 5-32 normal Not Available [facility] Department [address] [place], [address] 03/03/2023 22:20:05 03/03/20 23 03/03/2023 COMPR EHENS TONY MET. PANEL alanine aminotransfe rase 23 U/L 5-33 normal Not Available [facility] Department [address] [place], [address] 03/03/2023 22:20:05 03/03/20 23 03/03/2023 COMPR EHENS TONY MET. PANEL total protein 7.3 g/dL 6.4-8. 3 normal Not Available [facility] Department [address] [place], [address] 03/03/2023 22:20:05 03/03/20 23 03/03/2023 COMPR EHENS TONY MET. PANEL albumin level 4.4 g/dL 3.5-5. 2 normal Not Available [facility] [address] [place], [address] 03/03/2023 22:20:05 03/03/20 23 03/03/2023 COMPR EHENS TONY MET. PANEL globulin 2.9 gm/dL 2.0-3. 5 normal Not Available [facility] [address] [place], [address] 03/03/2023 22:20:05 03/03/20 23 03/03/2023 COMPR EHENS TONY MET. PANEL albumin globulin ratio 1.5 % 1.1-2. 5 normal Not Available [facility] Department [address] [place], [address] 03/03/2023 22:20:05 03/03/20 23 03/03/2023 COMPR EHENS TONY MET. PANEL alkaline phosphatase 102 U/L 35-104 normal Not Available [facility] Department [address] [place], [address] 03/03/2023 22:20:05 03/03/20 23 03/03/2023 IRON PROFI LE iron 36.9 ug/dL 37-145 low Not Available [facility] [address] [place], [address] 03/03/2023 22:20:37 03/03/20 23 03/03/2023 IRON PROFI LE total iron binding capacity 373.0 ug/dL 250-45 0 normal Not Available [facility] [address] [place], [address] 03/03/2023 22:20:37 03/03/20 23 03/03/2023 IRON PROFI LE transferrin 261 mg/dL 200-36 0 normal Not Available [facility] Department [address] [place], [address] 03/03/2023 22:20:37 03/03/20 23 03/03/2023 IRON PROFI LE transferrin percent saturation 10 % 20-50 low Not Available [facility] Department [address] [place], [address] 03/03/2023 22:20:37 03/03/20 23 03/03/2023 TSH REFLE X FREE T4 TSH reflex free T4 1.85 uIU/m L 0.27-4 .20 normal Not Available [facility] Department [address] [place], [address] 03/03/2023 22:20:38 03/03/20 23 03/03/2023 COMPL ETE BLOOD COUNT MAN DIF white blood count 11.24 K/uL 3.5-11 .0 high Not Available [facility] [address] [place] [address], [address] 03/03/2023 23:15:58 03/03/20 23 03/03/2023 COMPL ETE BLOOD COUNT MAN DIF red blood count 4.74 M/uL 3.60-4 .80 normal Not Available [facility] [address] [place] [address], [address] 03/03/2023 23:15:58 03/03/20 23 03/03/2023 COMPL ETE BLOOD COUNT MAN DIF hemoglobin 12.6 g/dL 12.0-1 6.0 normal Not Available [facility] [address] [place] [address], [address] 03/03/2023 23:15:58 03/03/20 23 03/03/2023 COMPL ETE BLOOD COUNT MAN DIF hematocrit 40.0 % 36.0-4 8.0 normal Not Available [facility] [address] [place] [address], [address] 03/03/2023 23:15:58 03/03/20 23 03/03/2023 COMPL ETE BLOOD COUNT MAN DIF mean corpuscular volume 84.4 fL 79.0-9 8.0 normal Not Available [facility] [address] [place] [address], [address] 03/03/2023 23:15:58 03/03/2003/03/2023 COMPL ETE BLOOD COUNT MAN DIF mean corpuscular hemoglobin 26.6 pg 25.4-3 4.6 normal Not Available [facility] [address] [place] [address], [address] 03/03/2023 23:15:58 03/03/20 23 03/03/2023 COMPL ETE BLOOD COUNT MAN DIF mean corpuscular HGB conc 31.5 g/dL 30.0-3 6.0 normal Not Available [facility] [address] [place] [address], [address] 03/03/2023 23:15:58 03/03/20 23 03/03/2023 COMPL ETE BLOOD COUNT MAN DIF red cell distribution width 13.5 % 11.5-1 4.5 normal Not Available [facility] Department [address] [place] [address], [address] 03/03/2023 23:15:58 03/03/20 23 03/03/2023 COMPL ETE BLOOD COUNT MAN DIF platelet count 326 K/uL 150-40 0 normal Not Available [facility] Department [address] [place] [address], [address] 03/03/2023 23:15:58 03/03/20 23 03/03/2023 COMPL ETE BLOOD COUNT MAN DIF total cells counted 100 Not Available [facility] Department [address] [place] [address], [address] 03/03/2023 23:15:58 03/03/20 23 03/03/2023 COMPL ETE BLOOD COUNT MAN DIF neutrophils percent manual 51 % 35-66 normal Not Available [facility] Department [address] [place] [address], [address] 03/03/2023 23:15:58 03/03/20 23 03/03/2023 COMPL ETE BLOOD COUNT MAN DIF lymphocytes percent manual 44 % 25-45 normal Not Available [facility] Department [address] [place] [address], [address] 03/03/2023 23:15:58 03/03/20 23 03/03/2023 COMPL ETE BLOOD COUNT MAN DIF monocytes percent manual 1 % 0-13 normal Not Available [facility] Department [address] [place] [address], [address] 03/03/2023 23:15:58 03/03/20 23 03/03/2023 COMPL ETE BLOOD COUNT MAN DIF eosinophils percent manual 4 % 0-8 normal Not Available [facility] Department [address] [place] [address], [id number] 03/03/2023 23:15:58 03/03/20 23 03/03/2023 COMPL ETE BLOOD COUNT MAN DIF neutrophils absolute manual 5.73 K/uL 1.5-7. 5 normal Cauti on: Inter preta tion of ANC resul ts witho ut inclu belinda of the WBC diffe renti al resul ts may lead to yanelis eous diagn osis; for examp le, dago ng myelo proli ferat tony or lymph oprol ifera tive disor ders. Not Available [facility] Department [address] [place] [address], [id number] 03/03/2023 23:15:58 03/03/20 23 03/03/2023 COMPL ETE BLOOD COUNT MAN DIF lymphocytes absolute manual 4.95 K/uL 0.8-4. 8 high Not Available [facility] Department [address] [place], [address] 03/03/2023 23:15:58 03/03/20 23 03/03/2023 COMPL ETE BLOOD COUNT MAN DIF monocytes absolute manual 0.11 K/uL 0.4-1. 3 low Not Available [facility] Department [address] [place], [address] 03/03/2023 23:15:58 03/03/20 23 03/03/2023 COMPL ETE BLOOD COUNT MAN DIF eosinophils absolute manual 0.45 K/uL 0.04-0 .36 high Not Available [facility] [address] [place] [address], [address] 03/03/2023 23:15:58 03/03/20 23 03/03/2023 COMPL ETE BLOOD COUNT MAN DIF RBC morphology NORMAL Not Available [facility] Department [address] [place], [address] 03/03/2023 23:15:58 03/03/20 23 03/04/2023 DEANNE TIN ferritin 97.6 NG/mL 13-150 normal Not Available [facility] Department [address] [place] [address], [address] 03/04/2023 02:07:01 03/08/20 23 03/08/2023 URINE PREG TEST urine Negati ve negati ve Not Available [facility] [address] [place] [address], [address] 03/08/2023 21:52:12 03/08/20 23 03/08/2023 DRUG SCREE N URINE opiate screen urine Negati ve negati ve Not Available [facility] [address] [place], [address] 03/08/2023 22:48:20 03/08/20 23 03/08/2023 DRUG SCREE N URINE barbiturates , urine Negati ve negati ve Not Available [facility] [address] [place], [address] 03/08/2023 22:48:20 03/08/20 23 03/08/2023 DRUG SCREE N URINE phencyclidin e screen urine Negati ve negati ve Not Available [facility] [address] [place], [address] 03/08/2023 22:48:20 03/08/20 23 03/08/2023 DRUG SCREE N URINE amphetamine screen urine Negati ve negati ve Not Available [facility] Department [address] [place] [address], [address] 03/08/2023 22:48:20 03/08/20 23 03/08/2023 DRUG SCREE N URINE benzodiazepi joaquin screen urine Negati ve negati ve Not Available [facility] [address] [place] [address], [address] 03/08/2023 22:48:20 03/08/20 23 03/08/2023 DRUG SCREE N URINE cocaine screen urine Negati ve negati ve Not Available [facility] [address] [place] [address], [address] 03/08/2023 22:48:20 03/08/20 23 03/08/2023 DRUG SCREE N URINE cannabinoid screen urine Negati ve negati ve Not Available [facility] [address] [place] [address], [address] 03/08/2023 22:48:20 03/08/20 23 03/08/2023 DRUG SCREE N URINE methadone screen, urine Negati ve negati ve Not Available [facility] [address] [place] [address], [address] 03/08/2023 22:48:20 03/08/20 23 03/08/2023 DRUG SCREE N URINE propoxyphene urine screen Negati ve negati ve Not Available [facility] [address] [place] [address], [address] 03/08/2023 22:48:20 03/08/20 23 03/08/2023 DRUG SCREE N URINE oxycodone urine screen Negati ve negati ve Not Available [facility] [address] [place] [address], [address] 03/08/2023 22:48:20 03/08/20 23 03/08/2023 DRUG SCREE N URINE ur drug screen interpretati on See Commen ts Testi ng Thres holds are as follo ws: Ampth etami joaquin 500 ng/mL Benzo diaze pines 100 ng/mL Propo xyphe ne 300 ng/mL Magdalena turat es 200 ng/mL Metha done 300 ng/mL PCP/m etabo lites 25 ng/mL Cocai ne/me tabol ites 300 ng/mL Canna binoi ds 50 ng/ml Opiat e Class 300 ng/mL Oxyco done Class 100 ng/mL A Negat tony test resul t indic ates that this margarita te is eithe r not prese nt, OR is prese nt at level s below the cutof f thres hold of this test. A Posit tony resul t from the assay indic ates only the prese nce of the margarita te and does not neces saril y corre late with the exten t of physi ologi hugo and psych ologi hugo effec ts. Trish alfaro Note: This is a scree hussain metho d only. This speci men will not be autom atica lly sent out to a refer ence labor atory for any confi rmati on testi ng. If the provi courtney needs confi rmati on testi ng, Trish alfaro call the labor atory withi n 24 hours to reque [facility] er testi ng. Not Available [facility] Department [address] [place] [address], [id number] 03/08/2023 22:48:20 07/06/2007/06/2023 URINE PREG TEST urine Negati ve negati ve Not Available [facility] Department [address] [place] [address], [address] 07/06/2023 21:50:34 08/26/20 23 08/26/2023 COMPL ETE BLOOD COUNT NO DIFF white blood count 11.96 K/uL 3.5-11 .0 high Not Available [facility] Department [address] [place], [address] 08/26/2023 19:42:09 08/26/20 23 08/26/2023 COMPL ETE BLOOD COUNT NO DIFF red blood count 5.31 M/uL 3.60-4 .80 high Not Available [facility] [address] [place] [address], [address] 08/26/2023 19:42:09 08/26/20 23 08/26/2023 COMPL ETE BLOOD COUNT NO DIFF hemoglobin 12.6 g/dL 12.0-1 6.0 normal Not Available [facility] [address] [place], [address] 08/26/2023 19:42:09 08/26/20 23 08/26/2023 COMPL ETE BLOOD COUNT NO DIFF hematocrit 41.9 % 36.0-4 8.0 normal Not Available [facility] [address] [place], [address] 08/26/2023 19:42:09 08/26/20 23 08/26/2023 COMPL ETE BLOOD COUNT NO DIFF mean corpuscular volume 78.9 fL 79.0-9 8.0 low Not Available [facility] [address] [place] [address], [address] 08/26/2023 19:42:09 08/26/2008/26/2023 COMPL ETE BLOOD COUNT NO DIFF mean corpuscular hemoglobin 23.7 pg 25.4-3 4.6 low Not Available [facility] [address] [place] [address], [address] 08/26/2023 19:42:09 08/26/20 23 08/26/2023 COMPL ETE BLOOD COUNT NO DIFF mean corpuscular HGB conc 30.1 g/dL 30.0-3 6.0 normal Not Available [facility] [address] [place] [address], [address] 08/26/2023 19:42:09 08/26/20 23 08/26/2023 COMPL ETE BLOOD COUNT NO DIFF red cell distribution width 14.9 % 11.5-1 4.5 high Not Available [facility] [address] [place] [address], [address] 08/26/2023 19:42:09 08/26/20 23 08/26/2023 COMPL ETE BLOOD COUNT NO DIFF platelet count 382 K/uL 150-40 0 normal Not Available [facility] [address] [place] [address], [address] 08/26/2023 19:42:09 08/26/20 23 08/26/2023 COMPL ETE BLOOD COUNT NO DIFF NRBC pct auto 0.0 /100_ WBC 0.0 normal Not Available [facility] [address] [place] [address], [address] 08/26/2023 19:42:09 08/26/20 23 08/26/2023 COMPL ETE BLOOD COUNT NO DIFF neutrophils absolute auto 6.01 K/uL 1.5-7. 5 normal Cauti on: Inter preta tion of ANC resul ts witho ut inclu belinda of the WBC diffe renti al resul ts may lead to yanelis eous diagn osis; for examp le, dago ng myelo proli ferat tony or lymph oprol ifera tive disor ders. Not Available [facility] Department [address] [place], [address] 08/26/2023 19:42:09 08/26/20 23 08/26/2023 COMPL ETE BLOOD COUNT NO DIFF NRBC abs auto 0.00 K/uL 0.00 normal Not Available [facility] Department [address] [place], [address] 08/26/2023 19:42:09 08/26/20 23 08/26/2023 HEMOG LOBIN A1C hemoglobin A1C % 6.4 % 4.0-5. 7 high % of the total HgB Inter preta tion ----- ----- ----- --- ----- ----- ----- - <5.7 Consi stent with the absen ce of diabe ori 5.7-6 .4 Consi stent with incre ased risk for diabe ori (pred iabet es) > or = to 6.5 Consi stent with Diabe ori Not Available [facility] Department [address] [place], [address] 08/26/2023 19:57:04 08/26/2008/26/2023 HEPAT ITIS C ANTIB TANYA hepatitis C virus antibody NONREA CTIVE nonrea ctive Nonre activ e/Ant ibodi es to HCV not detec karmen; does not exclu de early acute HCV infec tion Non React tony Antib odies to Hepat itis C virus not detec karmen: does not exclu de early acute infec tion. Not Available [facility] Department [address] [place], [address] 08/26/2023 22:03:06 08/26/20 23 08/26/2023 VITAM IN D 25-OH TOTAL vitamin D 25-oh total 20.0 NG/mL Refer ence Range : Defic ient <20 ng/mL Insuf ficie nt 21-29 ng/mL Suffi cient >30 ng/mL Not Available [facility] Department [address] [place], [address] 08/26/2023 22:11:45 08/26/20 23 08/26/2023 COMPR EHENS TONY MET. PANEL sodium 141 mmol/ L 136-14 5 normal Not Available [facility] Department [address] [place] [address], [address] 08/26/2023 23:22:39 08/26/20 23 08/26/2023 COMPR EHENS TONY MET. PANEL potassium 4.4 mmol/ L 3.5-5. 1 normal Not Available [facility] Department [address] [place] [address], [address] 08/26/2023 23:22:39 08/26/20 23 08/26/2023 COMPR EHENS TONY MET. PANEL chloride 104 mmol/ L 98-107 normal Not Available [facility] Department [address] [place] [address], [address] 08/26/2023 23:22:39 08/26/20 23 08/26/2023 COMPR EHENS TONY MET. PANEL carbon dioxide 25.0 mmol/ L 22-29 normal Not Available [facility] Department [address] [place] [address], [address] 08/26/2023 23:22:39 08/26/20 23 08/26/2023 COMPR EHENS TONY MET. PANEL anion gap 17 mmol/ L 10-20 normal Not Available [facility] Department [address] [place] [address], [address] 08/26/2023 23:22:39 08/26/20 23 08/26/2023 COMPR EHENS TONY MET. PANEL blood urea nitrogen 11 mg/dL 6-20 normal Not Available [facility] Department [address] [place], [address] 08/26/2023 23:22:39 08/26/20 23 08/26/2023 COMPR EHENS TONY MET. PANEL creatinine 0.67 mg/dL 0.50-0 .90 normal Not Available [facility] Department [address] [place], [address] 08/26/2023 23:22:39 08/26/20 23 08/26/2023 COMPR EHENS TONY MET. PANEL estimated glomerular filt rate 128 GFR Value : mL/mi n/1.7 3 squar e meter s Calcu latio n: CKD-E PI Creat inine Equat ion (2020 ) Chron ic Kidne y Disea se is defin ed as eithe r of the follo wing prese nt for >= 3 month s: - GFR less than 60 mL/mi n/1.7 3 squar e meter s. - Micro album in:Ur . Creat inine Ratio >= 30 mg/g or other marke rs of kidne y damag e Kidne y failu re is less than 15 mL/mi n/1.7 3 squar e meter s This test is not perfo rmed in patie nts under the age of 18. Not Available [facility] Department [address] [place], [address] 08/26/2023 23:22:39 08/26/20 23 08/26/2023 COMPR EHENS TONY MET. PANEL glucose 157 mg/dL 70-106 high Not Available [facility] Department [address] [place], [address] 08/26/2023 23:22:39 08/26/20 23 08/26/2023 COMPR EHENS TONY MET. PANEL calcium 9.9 mg/dL 8.6-10 .3 normal Not Available [facility] Department [address] [place], [address] 08/26/2023 23:22:39 08/26/20 23 08/26/2023 COMPR EHENS TONY MET. PANEL bilirubin total < 0.2 mg/dL 0.2-1. 2 low Not Available [facility] Department [address] [place], [address] 08/26/2023 23:22:39 08/26/20 23 08/26/2023 COMPR EHENS TONY MET. PANEL aspartate amino transferase 33 U/L 5-32 high Not Available [facility] Department [address] [place], [address] 08/26/2023 23:22:39 08/26/20 23 08/26/2023 COMPR EHENS TONY MET. PANEL alanine aminotransfe rase 53 U/L 5-33 high Not Available [facility] Department [address] [place], [address] 08/26/2023 23:22:39 08/26/20 23 08/26/2023 COMPR EHENS TONY MET. PANEL total protein 7.1 g/dL 6.4-8. 3 normal Not Available [facility] Department [address] [place], [address] 08/26/2023 23:22:39 08/26/20 23 08/26/2023 COMPR EHENS TONY MET. PANEL albumin level 4.4 g/dL 3.5-5. 2 normal Not Available [facility] Department [address] [place], [address] 08/26/2023 23:22:39 08/26/20 23 08/26/2023 COMPR EHENS TONY MET. PANEL globulin 2.6 gm/dL 2.0-3. 5 normal Not Available [facility] Department [address] [place], [address] 08/26/2023 23:22:39 08/26/20 23 08/26/2023 COMPR EHENS TONY MET. PANEL albumin globulin ratio 1.7 % 1.1-2. 5 normal Not Available [facility] Department [address] [place], [address] 08/26/2023 23:22:39 08/26/20 23 08/26/2023 COMPR EHENS TONY MET. PANEL alkaline phosphatase 119 U/L 35-104 high Not Available [facility] Department [address] [place], [address] 08/26/2023 23:22:39 08/26/20 23 08/26/2023 IRON PROFI LE iron 37.0 ug/dL 37-145 normal Not Available [facility] Department [address] [place], [address] 10/01/2023 16:45:57 08/26/20 23 08/26/2023 IRON PROFI LE total iron binding capacity 417.6 ug/dL 250-45 0 normal Not Available [facility] Department [address] [place] [address], [address] 10/01/2023 16:45:57 08/26/20 23 08/26/2023 IRON PROFI LE transferrin 292 mg/dL 200-36 0 normal Not Available [facility] Department [address] [place], [address] 10/01/2023 16:45:57 08/26/20 23 10/01/2023 IRON PROFI LE transferrin percent saturation 9 % 20-50 low --- 10/01 1645 --- Trans f Pct Sat previ ously repor karmen as: 10 L % Not Available [facility] Department [address] [place], [address] 10/01/2023 16:45:57 08/26/20 23 08/26/2023 LIPID PANEL WITH REFLE X triglyceride s 231 mg/dL 30-150 high Refer ence Range s: <150 mg/dl Tonja l 150-1 99 mg/dl Borde rline High 200-4 99 mg/dl High >500 mg/dl Very High Not Available [facility] Department [address] [place], [address] 08/26/2023 23:22:42 08/26/20 23 08/26/2023 LIPID PANEL WITH REFLE X cholesterol 202 mg/dL 100-20 0 high Not Available [facility] Department [address] [place], [address] 08/26/2023 23:22:42 08/26/20 23 08/26/2023 LIPID PANEL WITH REFLE X LDL cholesterol direct TNP mg/dL 0-100 Not Available [facility] Department [address] [place], [address] 08/26/2023 23:22:42 08/26/20 23 08/26/2023 LIPID PANEL WITH REFLE X LDL cholesterol calculated 118.0 mg/dL 0-100 high Natio nal Comfort stero l Educa tion Progr am sugge sts the follo wing refer ence range : Optim al <100 mg/dL Near optim al/ab ove optim al 100-1 29 mg/dL Borde rline high 130-1 59 mg/dL High 160-1 89 mg/dL Very high >190 mg/dL Not Available [facility] Department [address] [place], [address] 08/26/2023 23:22:42 08/26/20 23 08/26/2023 LIPID PANEL WITH REFLE X HDL cholesterol 38.1 mg/dL 40-60 low Major risk facto r for CHD: <40 mg/dL Negat tony risk facto r for CHD: >=60 mg/dL Not Available [facility] Department [address] [place], [address] 08/26/2023 23:22:42 08/26/20 23 08/26/2023 LIPID PANEL WITH REFLE X chol HDL ratio 5.30 Risk CHOL/ HDL CHOL/ HDL Ratio Male Femal e 1/2 AVERA GE 3.43 3.27 AVERA GE 4.97 4.44 2 X AVERA GE 9.55 7.05 3 X AVERA GE 23.39 11.04 Not Available [facility] Department [address] [place], [address] 08/26/2023 23:22:42 08/26/20 23 08/26/2023 DEANNE TIN ferritin 56.3 NG/mL 13-150 normal Not Available [facility] Department [address] [place], [address] 08/26/2023 23:29:13 09/06/20 23 09/06/2023 URINE PREG TEST urine Negati ve negati ve Not Available [facility] Department [address] [place], [address] 09/06/2023 23:54:06 09/06/20 23 09/06/2023 DRUG SCREE N URINE ur drug screen interpretati on See Commen ts Testi ng Thres holds are as follo ws: Ampth etami joaquin 500 ng/mL Benzo diaze pines 100 ng/mL Propo xyphe ne 300 ng/mL Magdalena turat es 200 ng/mL Metha done 300 ng/mL PCP/m etabo lites 25 ng/mL Cocai ne/me tabol ites 300 ng/mL Canna binoi ds 50 ng/ml Opiat e Class 300 ng/mL Oxyco done Class 100 ng/mL A Negat tony test resul t indic ates that this margarita te is eithe r not prese nt, OR is prese nt at level s below the cutof f thres hold of this test. A Posit tony resul t from the assay indic ates only the prese nce of the margarita te and does not neces cheryl garner late with the exten t of physi ologi hugo and psych ologi hugo effec ts. Trish alfaro Note: This is a scree hussain metho d only. This speci men will not be autom atica lly sent out to a refer ence labor atory for any confi rmati on testi ng. If the provi courtney needs confi rmati on testi ng, Trish alfaro call the labor atory withi n 24 hours to reque [facility] er testi ng. Not Available [facility] Department [address] [place] [address], [id number] 09/07/2023 00:12:06 09/06/20 23 09/07/2023 DRUG SCREE N URINE opiate screen urine Negati ve negati ve Not Available [facility] [address] [place] [address], [id number] 09/07/2023 00:12:06 09/06/2009/07/2023 DRUG SCREE N URINE barbiturates , urine Negati ve negati ve Not Available [facility] [address] [place] [address], [id number] 09/07/2023 00:12:06 09/06/2009/07/2023 DRUG SCREE N URINE phencyclidin e screen urine Negati ve negati ve Not Available [facility] [address] [place] [address], [id number] 09/07/2023 00:12:06 09/06/20 23 09/07/2023 DRUG SCREE N URINE amphetamine screen urine Negati ve negati ve Not Available [facility] [address] [place] [address], [id number] 09/07/2023 00:12:06 09/06/20 23 09/07/2023 DRUG SCREE N URINE benzodiazepi joaquin screen urine Negati ve negati ve Not Available [facility] [address] [place] [address], [id number] 09/07/2023 00:12:06 09/06/20 23 09/07/2023 DRUG SCREE N URINE cocaine screen urine Negati ve negati ve Not Available [facility] [address] [place] [address], [id number] 09/07/2023 00:12:06 09/06/20 23 09/07/2023 DRUG SCREE N URINE cannabinoid screen urine Negati ve negati ve Not Available [facility] Department [address] [place], [address] 09/07/2023 00:12:06 09/06/20 23 09/07/2023 DRUG SCREE N URINE methadone screen, urine Negati ve negati ve Not Available [facility] [address] [place] [address], [id number] 09/07/2023 00:12:06 09/06/20 23 09/07/2023 DRUG SCREE N URINE propoxyphene urine screen Negati ve negati ve Not Available [facility] [address] [place] [address], [id number] 09/07/2023 00:12:06 09/06/20 23 09/07/2023 DRUG SCREE N URINE oxycodone urine screen Negati ve negati ve Not Available [facility] [address] [place] [address], [id number] 09/07/2023 00:12:06 09/07/20 23 09/07/2023 COMPL ETE BLOOD COUNT AUTO DIFF white blood count 15.74 K/uL 3.5-11 .0 high Not Available [facility] [address] [place] [address], [id number] 09/07/2023 02:45:59 09/07/20 23 09/07/2023 COMPL ETE BLOOD COUNT AUTO DIFF red blood count 5.35 M/uL 3.60-4 .80 high Not Available [facility] [address] [place] [address], [id number] 09/07/2023 02:45:59 09/07/20 23 09/07/2023 COMPL ETE BLOOD COUNT AUTO DIFF hemoglobin 13.0 g/dL 12.0-1 6.0 normal Not Available [facility] [address] [place] [address], [id number] 09/07/2023 02:45:59 09/07/20 23 09/07/2023 COMPL ETE BLOOD COUNT AUTO DIFF hematocrit 41.2 % 36.0-4 8.0 normal Not Available [facility] [address] [place] [address], [id number] 09/07/2023 02:45:59 09/07/20 23 09/07/2023 COMPL ETE BLOOD COUNT AUTO DIFF mean corpuscular volume 77.0 fL 79.0-9 8.0 low Not Available [facility] Department [address] [place], [address] 09/07/2023 02:45:59 09/07/20 23 09/07/2023 COMPL ETE BLOOD COUNT AUTO DIFF mean corpuscular hemoglobin 24.3 pg 25.4-3 4.6 low Not Available [facility] [address] [place] [address], [id number] 09/07/2023 02:45:59 09/07/20 23 09/07/2023 COMPL ETE BLOOD COUNT AUTO DIFF mean corpuscular HGB conc 31.6 g/dL 30.0-3 6.0 normal Not Available [facility] [address] [place] [address], [id number] 09/07/2023 02:45:59 09/07/20 23 09/07/2023 COMPL ETE BLOOD COUNT AUTO DIFF red cell distribution width 15.7 % 11.5-1 4.5 high Not Available [facility] [address] [place] [address], [address] 09/07/2023 02:45:59 09/07/20 23 09/07/2023 COMPL ETE BLOOD COUNT AUTO DIFF platelet count 339 K/uL 150-40 0 normal Not Available [facility] [address] [place] [address], [address] 09/07/2023 02:45:59 09/07/20 23 09/07/2023 COMPR EHENS TONY MET. PANEL sodium 142 mmol/ L 136-14 5 normal Not Available [facility] [address] [place] [address], [address] 09/07/2023 02:52:34 09/07/20 23 09/07/2023 COMPR EHENS TONY MET. PANEL potassium 4.1 mmol/ L 3.5-5. 1 normal Not Available [facility] [address] [place] [address], [id number] 09/07/2023 02:52:34 09/07/20 23 09/07/2023 COMPR EHENS TONY MET. PANEL chloride 107 mmol/ L 98-107 normal Not Available [facility] [address] [place] [address], [address] 09/07/2023 02:52:34 09/07/20 23 09/07/2023 COMPR EHENS TONY MET. PANEL carbon dioxide 23.3 mmol/ L 22-29 normal Not Available [facility] Department [address] [place], [address] 09/07/2023 02:52:34 09/07/20 23 09/07/2023 COMPR EHENS TONY MET. PANEL anion gap 16 mmol/ L 10-20 normal Not Available [facility] Department [address] [place], [address] 09/07/2023 02:52:34 09/07/20 23 09/07/2023 COMPR EHENS TONY MET. PANEL blood urea nitrogen 10 mg/dL 6-20 normal Not Available [facility] Department [address] [place], [address] 09/07/2023 02:52:34 09/07/20 23 09/07/2023 COMPR EHENS TONY MET. PANEL creatinine 0.62 mg/dL 0.50-0 .90 normal Not Available [facility] Department [address] [place], [address] 09/07/2023 02:52:34 09/07/20 23 09/07/2023 COMPR EHENS TONY MET. PANEL estimated glomerular filt rate 131 GFR Value : mL/mi n/1.7 3 squar e meter s Calcu latio n: CKD-E PI Creat inine Equat ion (2020 ) Chron ic Kidne y Disea se is defin ed as eithe r of the follo wing prese nt for >= 3 month s: - GFR less than 60 mL/mi n/1.7 3 squar e meter s. - Micro album in:Ur . Creat inine Ratio >= 30 mg/g or other marke rs of kidnorm y damag e Kidne y failu re is less than 15 mL/mi n/1.7 3 squar e meter s This test is not perfo rmed in patie nts under the age of 18. Not Available [facility] Department [address] [place], [address] 09/07/2023 02:52:34 09/07/20 23 09/07/2023 COMPR EHENS TONY MET. PANEL glucose 90 mg/dL 70-106 normal Not Available [facility] Department [address] [place], [address] 09/07/2023 02:52:34 09/07/20 23 09/07/2023 COMPR EHENS TONY MET. PANEL calcium 9.9 mg/dL 8.4-10 .3 normal Not Available [facility] Department [address] [place], [address] 09/07/2023 02:52:34 09/07/20 23 09/07/2023 COMPR EHENS TONY MET. PANEL bilirubin total < 0.2 mg/dL 0.2-1. 2 low Not Available [facility] Department [address] [place], [address] 09/07/2023 02:52:34 09/07/20 23 09/07/2023 COMPR EHENS TONY MET. PANEL aspartate amino transferase 31 U/L 5-32 normal Not Available [facility] Department [address] [place], [address] 09/07/2023 02:52:34 09/07/20 23 09/07/2023 COMPR EHENS TONY MET. PANEL alanine aminotransfe rase 36 U/L 5-33 high Not Available [facility] Department [address] [place], [address] 09/07/2023 02:52:34 09/07/20 23 09/07/2023 COMPR EHENS TONY MET. PANEL total protein 7.2 g/dL 6.4-8. 3 normal Not Available [facility] Department [address] [place], [address] 09/07/2023 02:52:34 09/07/20 23 09/07/2023 COMPR EHENS TONY MET. PANEL albumin level 4.2 g/dL 3.5-5. 2 normal Not Available [facility] Department [address] [place], [address] 09/07/2023 02:52:34 09/07/20 23 09/07/2023 COMPR EHENS TONY MET. PANEL globulin 3.0 gm/dL 2.0-3. 5 normal Not Available [facility] Department [address] [place], [address] 09/07/2023 02:52:34 09/07/20 23 09/07/2023 COMPR EHENS TONY MET. PANEL albumin globulin ratio 1.4 % 1.1-2. 5 normal Not Available [facility] Department [address] [place], [address] 09/07/2023 02:52:34 09/07/20 23 09/07/2023 ROBIN JIMENEZ MET. PANEL alkaline phosphatase 98 U/L 35-104 normal Not Available [facility] Department [address] [place] [address], [address] 09/07/2023 02:52:34 09/07/20 23 09/07/2023 RICHARD OL ethanol < 10 mg/dL This resul t is below the linea rity of the instr ument and shoul d be consi dered indis tingu ishab le from zero. REFER ENCE RANGE : NONE DETEC KARMEN No refer ence range is avail able for deter minat ion of clini hugo intox icati on. Not Available [facility] Department [address] [place] [address], [address] 09/07/2023 02:52:34 09/07/20 23 09/07/2023 MANUA L DIFFE RENTI AL total cells counted 100 Not Available [facility] Department [address] [place] [address], [address] 09/07/2023 03:20:41 09/07/20 23 09/07/2023 MANUA L DIFFE RENTI AL neutrophils percent manual 47 % 35-66 normal Not Available [facility] Department [address] [place] [address], [id number] 09/07/2023 03:20:41 09/07/20 23 09/07/2023 MANUA L DIFFE RENTI AL lymphocytes percent manual 49 % 25-45 high Not Available [facility] Department [address] [place] [address], [address]1430 09/07/2023 03:20:41 09/07/20 23 09/07/2023 MANUA L DIFFE RENTI AL monocytes percent manual 2 % 0-13 normal Not Available [facility] Department [address] [place] [address], [id number] 09/07/2023 03:20:41 09/07/20 23 09/07/2023 MANUA L DIFFE RENTI AL eosinophils percent manual 2 % 0-8 normal Not Available [facility] Department [address] [place] [address], [id number] 09/07/2023 03:20:41 09/07/20 23 09/07/2023 MANUA L DIFFE RENTI AL neutrophils absolute manual 7.40 K/uL 1.5-7. 5 normal Cauti on: Inter preta tion of ANC resul ts witho ut inclu belinda of the WBC diffe renti al resul ts may lead to yanelis eous diagn osis; for examp le, dago ng myelo proli ferat tony or lymph oprol ifera tive disor ders. Not Available [facility] Department [address] [place], [address] 09/07/2023 03:20:41 09/07/20 23 09/07/2023 MANUA L DIFFE RENTI AL lymphocytes absolute manual 7.71 K/uL 0.8-4. 8 high Not Available [facility] Department [address] [place], [address] 09/07/2023 03:20:41 09/07/20 23 09/07/2023 MANUA L DIFFE RENTI AL monocytes absolute manual 0.31 K/uL 0.4-1. 3 low Not Available [facility] Department [address] [place] [address], 14536 09/07/2023 03:20:41 09/07/20 23 09/07/2023 MANUA L DIFFE RENTI AL eosinophils absolute manual 0.31 K/uL 0.04-0 .36 normal Not Available [facility] Department [address] [place], [address] 09/07/2023 03:20:41 09/07/20 23 09/07/2023 MANUA L DIFFE RENTI AL RBC morphology Unrema rkable Not Available [facility] Department [address] [place], [address] 09/07/2023 03:20:41 09/07/20 23 09/07/2023 LITHI UM lithium 0.3 mmol/ L 0.6-1. 2 low Not Available [facility] [address] [place], [address] 09/07/2023 14:46:45 11/12/19 24 11/12/2023 COMPL ETE BLOOD COUNT AUTO DIFF white blood count 17.80 K/uL 3.5-11 .0 high Not Available [facility] Department [address] [place] [address], [id number] 11/12/2023 01:43:51 11/12/19 24 11/12/2023 COMPL ETE BLOOD COUNT AUTO DIFF red blood count 4.96 M/uL 3.60-4 .80 high Not Available [facility] [address] [place] [address], [id number] 11/12/2023 01:43:51 11/12/19 24 11/12/2023 COMPL ETE BLOOD COUNT AUTO DIFF hemoglobin 13.1 g/dL 12.0-1 6.0 normal Not Available [facility] Department [address] [place] [address], 50698 11/12/2023 01:43:51 11/12/19 24 11/12/2023 COMPL ETE BLOOD COUNT AUTO DIFF hematocrit 40.8 % 36.0-4 8.0 normal Not Available [facility] Department [address] [place] [address], [id number] 11/12/2023 01:43:51 11/12/19 24 11/12/2023 COMPL ETE BLOOD COUNT AUTO DIFF mean corpuscular volume 82.3 fL 79.0-9 8.0 normal Not Available [facility] Department [address] [place] [address], 87949 11/12/2023 01:43:51 11/12/19 24 11/12/2023 COMPL ETE BLOOD COUNT AUTO DIFF mean corpuscular hemoglobin 26.4 pg 25.4-3 4.6 normal Not Available [facility] Department [address] [place] [address], [id number] 11/12/2023 01:43:51 11/12/19 24 11/12/2023 COMPL ETE BLOOD COUNT AUTO DIFF mean corpuscular HGB conc 32.1 g/dL 30.0-3 6.0 normal Not Available [facility] Department [address] [place] [address], [id number] 11/12/2023 01:43:51 11/12/19 24 11/12/2023 COMPL ETE BLOOD COUNT AUTO DIFF red cell distribution width 14.9 % 11.5-1 4.5 high Not Available [facility] [address] [place] [address], [id number] 11/12/2023 01:43:51 11/12/19 24 11/12/2023 COMPL ETE BLOOD COUNT AUTO DIFF platelet count 352 K/uL 150-40 0 normal Not Available [facility] [address] [place] [address], 32096 11/12/2023 01:43:51 11/12/19 24 11/12/2023 URINE PREG TEST urine Negati ve negati ve Not Available [facility] [address] [place] [address], [id number] 11/12/2023 01:43:53 11/12/19 24 11/12/2023 UA + MICRO (DO NOT ORDER ) color urine Yellow yellow Not Available [facility] Department [address] [place] [address], [id number] 11/12/2023 02:05:15 11/12/19 24 11/12/2023 UA + MICRO (DO NOT ORDER ) appearance urine Clear clear Not Available [facility] Department [address] [place] [address], [id number] 11/12/2023 02:05:15 11/12/19 24 11/12/2023 UA + MICRO (DO NOT ORDER ) specific gravity urine 1.015 1.001- 1.035 Not Available [facility] [address] [place] [address], [id number] 11/12/2023 02:05:15 11/12/19 24 11/12/2023 UA + MICRO (DO NOT ORDER ) glucose urine UA Negati ve negati ve Not Available [facility] [address] [place] [address], 68424 11/12/2023 02:05:15 11/12/19 24 11/12/2023 UA + MICRO (DO NOT ORDER ) bilirubin urine Negati ve negati ve Not Available [facility] [address] [place] [address], 52875 11/12/2023 02:05:15 11/12/19 24 11/12/2023 UA + MICRO (DO NOT ORDER ) ketones urine Negati ve negati ve Not Available [facility] [address] [place] [address], [id number] 11/12/2023 02:05:15 11/12/19 24 11/12/2023 UA + MICRO (DO NOT ORDER ) urine hemoglobin Negati ve negati ve Not Available [facility] [address] [place] [address], [id number] 11/12/2023 02:05:15 11/12/19 24 11/12/2023 UA + MICRO (DO NOT ORDER ) pH urine 7.0 5.0-8. 0 Not Available [facility] [address] [place] [address], [id number] 11/12/2023 02:05:15 11/12/19 24 11/12/2023 UA + MICRO (DO NOT ORDER ) protein urine Negati ve mg/dL negati ve Not Available [facility] Department [address] [place] [address], 53358 11/12/2023 02:05:15 11/12/19 24 11/12/2023 UA + MICRO (DO NOT ORDER ) urobilinogen urine 0.2 mg/dL 0.2-1. 0 Not Available [facility] [address] [place] [address], [id number] 11/12/2023 02:05:15 11/12/19 24 11/12/2023 UA + MICRO (DO NOT ORDER ) nitrite urine Negati ve negati ve Not Available [facility] [address] [place] [address], 58035 11/12/2023 02:05:15 11/12/19 24 11/12/2023 UA + MICRO (DO NOT ORDER ) leukocyte esterase urine Trace negati ve abnormal Not Available [facility] [address] [place] [address], [id number] 11/12/2023 02:05:15 11/12/19 24 11/12/2023 UA + MICRO (DO NOT ORDER ) WBC urine 0-4 0-5/hp f Not Available [facility] [address] [place] [address], [id number] 11/12/2023 02:05:15 11/12/19 24 11/12/2023 DRUG SCREE N URINE opiate screen urine Negati ve negati ve Not Available [facility] [address] [place] [address], [id number] 11/12/2023 01:59:21 11/12/19 24 11/12/2023 DRUG SCREE N URINE barbiturates , urine Negati ve negati ve Not Available [facility] [address] [place] [address], [id number] 11/12/2023 01:59:21 03/06/20 24 11/12/2023 DRUG SCREE N URINE phencyclidin e screen urine Negati ve negati ve Not Available [facility] [address] [place] [address], [id number] 11/12/2023 01:59:21 11/12/19 24 11/12/2023 DRUG SCREE N URINE amphetamine screen urine Negati ve negati ve Not Available [facility] [address] [place] [address], [id number] 11/12/2023 01:59:21 11/12/19 24 11/12/2023 DRUG SCREE N URINE benzodiazepi joaquin screen urine Negati ve negati ve Not Available [facility] [address] [place] [address], [id number] 11/12/2023 01:59:21 11/12/19 24 11/12/2023 DRUG SCREE N URINE cocaine screen urine Negati ve negati ve Not Available [facility] [address] [place] [address], [id number] 11/12/2023 01:59:21 11/12/19 24 11/12/2023 DRUG SCREE N URINE cannabinoid screen urine Negati ve negati ve Not Available [facility] [address] [place] [address], [id number] 11/12/2023 01:59:21 11/12/19 24 11/12/2023 DRUG SCREE N URINE methadone screen, urine Negati ve negati ve Not Available [facility] [address] [place] [address], [id number] 11/12/2023 01:59:21 11/12/19 24 11/12/2023 DRUG SCREE N URINE propoxyphene urine screen Negati ve negati ve Not Available [facility] [address] [place] [address], [id number] 11/12/2023 01:59:21 11/12/19 24 11/12/2023 DRUG SCREE N URINE oxycodone urine screen Negati ve negati ve Not Available [facility] [address] [place] [address], [id number] 11/12/2023 01:59:21 11/12/19 24 11/12/2023 DRUG SCREE N URINE ur drug screen interpretati on See Commen ts Testi ng Thres holds are as follo ws: Ampth etami joaquin 500 ng/mL Benzo diaze pines 100 ng/mL Propo xyphe ne 300 ng/mL Magdalena turat es 200 ng/mL Metha done 300 ng/mL PCP/m etabo lites 25 ng/mL Cocai ne/me tabol ites 300 ng/mL Canna binoi ds 50 ng/ml Opiat e Class 300 ng/mL Oxyco done Class 100 ng/mL A Negat tony test resul t indic ates that this margarita te is eithe r not prese nt, OR is prese nt at level s below the cutof f thres hold of this test. A Posit tony resul t from the assay indic ates only the prese nce of the margarita te and does not neces cheryl y corre late with the exten t of physi ologi hugo and psych ologi hugo effec ts. Trish alfaro Note: This is a scree hussain metho d only. This speci men will not be autom atica lly sent out to a refer ence labor atory for any confi rmati on testi ng. If the provi courtney needs confi rmati on testi ng, Trish alfaro call the labor atory withi n 24 hours to reque [facility] er testi ng. Not Available [facility] [address] [place] [address], [id number] 11/12/2023 01:59:21 11/12/19 24 11/12/2023 DIPIKAA Avila DIFFE RENTI AL total cells counted 100 Not Available [facility] Department [address] [place] [address], [id number] 11/12/2023 02:08:19 11/12/19 24 11/12/2023 MANUA L DIFFE RENTI AL neutrophils percent manual 61 % 35-66 normal Not Available [facility] Department [address] [place] [address], [id number] 11/12/2023 02:08:19 11/12/19 24 11/12/2023 MANUA L DIFFE RENTI AL lymphocytes percent manual 35 % 25-45 normal Not Available [facility] Department [address] [place] [address], [id number] 11/12/2023 02:08:19 11/12/19 24 11/12/2023 MANUA L DIFFE RENTI AL monocytes percent manual 1 % 0-13 normal Not Available [facility] Department [address] [place], [address] 11/12/2023 02:08:19 11/12/19 24 11/12/2023 MANUA L DIFFE RENTI AL eosinophils percent manual 3 % 0-8 normal Not Available [facility] Department [address] [place], [address] 11/12/2023 02:08:19 11/12/19 24 11/12/2023 MANUA L DIFFE RENTI AL neutrophils absolute manual 10.86 K/uL 1.5-7. 5 high Cauti on: Inter preta tion of ANC resul ts witho ut inclu belinda of the WBC diffe renti al resul ts may lead to yanelis eous diagn osis; for examp le, dago ng myelo proli ferat tony or lymph oprol ifera tive disor ders. Not Available [facility] [address] [place] [address], [id number] 11/12/2023 02:08:19 11/12/19 24 11/12/2023 MANUA L DIFFE RENTI AL lymphocytes absolute manual 6.23 K/uL 0.8-4. 8 high Not Available [facility] [address] [place] [address], [id number] 11/12/2023 02:08:19 11/12/19 24 11/12/2023 MANUA L DIFFE RENTI AL monocytes absolute manual 0.18 K/uL 0.4-1. 3 low Not Available [facility] [address] [place] [address], [id number] 11/12/2023 02:08:19 11/12/19 24 11/12/2023 MANUA L DIFFE RENTI AL eosinophils absolute manual 0.53 K/uL 0.04-0 .36 high Not Available [facility] [address] [place] [address], [id number] 11/12/2023 02:08:19 11/12/19 24 11/12/2023 MANUA L DIFFE RENTI AL RBC morphology Refer to RBC Indice s Not Available [facility] [address] [place] [address], [id number] 11/12/2023 02:08:19 11/12/19 24 11/12/2023 BASIC METAB OLIC PANEL sodium 140 mmol/ L 136-14 5 normal Not Available [facility] [address] [place] [address], [id number] 11/12/2023 02:18:27 11/12/19 24 11/12/2023 BASIC METAB OLIC PANEL potassium 3.9 mmol/ L 3.5-5. 1 normal Not Available [facility] [address] [place] [address], [id number] 11/12/2023 02:18:27 11/12/19 24 11/12/2023 BASIC METAB OLIC PANEL chloride 105 mmol/ L 98-107 normal Not Available [facility] [address] [place] [address], [id number] 11/12/2023 02:18:27 11/12/19 24 11/12/2023 BASIC METAB OLIC PANEL carbon dioxide 21.2 mmol/ L 22-29 low Not Available [facility] [address] [place] [address], [id number] 11/12/2023 02:18:27 11/12/19 24 11/12/2023 BASIC METAB OLIC PANEL anion gap 18 mmol/ L 10-20 normal Not Available [facility] [address] [place] [address], [id number] 11/12/2023 02:18:27 11/12/19 24 11/12/2023 BASIC METAB OLIC PANEL blood urea nitrogen 9 mg/dL 6-20 normal Not Available [facility] Department [address] [place] [address], [id number] 11/12/2023 02:18:27 11/12/19 24 11/12/2023 BASIC METAB OLIC PANEL creatinine 0.70 mg/dL 0.50-0 .90 normal Not Available [facility] [address] [place] [address], [id number] 11/12/2023 02:18:27 11/12/19 24 11/12/2023 BASIC METAB OLIC PANEL estimated glomerular filt rate 127 GFR Value : mL/mi n/1.7 3 squar e meter s Calcu latio n: CKD-E PI Creat inine Equat ion (2020 ) Chron ic Kidne y Disea se is defin ed as eithe r of the follo wing prese nt for >= 3 month s: - GFR less than 60 mL/mi n/1.7 3 squar e meter s. - Micro album in:Ur . Creat inine Ratio >= 30 mg/g or other marke rs of kidne y damag e Kidne y failu re is less than 15 mL/mi n/1.7 3 squar e meter s This test is not perfo rmed in patie nts under the age of 18. Not Available [facility] [address] [place], [address] 11/12/2023 02:18:27 11/12/19 24 11/12/2023 BASIC METAB OLIC PANEL glucose 198 mg/dL 70-106 high Not Available [facility] [address] [place] [address], [id number] 11/12/2023 02:18:27 11/12/19 24 11/12/2023 BASIC METAB OLIC PANEL calcium 10.3 mg/dL 8.4-10 .3 normal Not Available [facility] [address] [place] [address], [id number] 11/12/2023 02:18:27 11/12/19 24 11/12/2023 RICHARD OL ethanol < 10 mg/dL This resul t is below the linea rity of the instr ument and shoul d be consi dered indis tingu ishab le from zero. REFER ENCE RANGE : NONE DETEC KARMEN No refer ence range is avail able for deter minat ion of clini hugo intox icati on. Not Available [facility] [address] [place] [address], [id number] 11/12/2023 02:18:28 11/12/19 24 11/12/2023 LITHI UM lithium 0.6 mmol/ L 0.6-1. 2 normal Not Available [facility] [address] [place], [address] 11/12/2023 03:50:02 03/08/20 23 03/08/2023 XR, ankle , 3 or more view [facility] [address] [place], [place] [address] XRay Report Signed Patien t: Savisk i,Jessica sarai G MR#: [id number] : 2004 Acct:A [id number] Age/Se x: 18 / F ADM Date: Loc: HE.TWI CCLI Attend ing Dr: Claire Charles PEDIATRICS PHYSICIAN Orderi ng Physic myah: Claire Charles Date of Servic e: Proced ure(s) : XR ankle RT min 3V Access ion Number (s): [id number] H cc: Amarilis Chávez Study: XR ankle RT min 3V HISTOR Y: ANKLE PAIN Age: 18 years Gender : Female Additi onal inform ation: 3 images . Specif ic views reques karmen (if any): Findin gs: No acute fractu re is seen. Partia l wideni ng of the medial ankle mortis e. Signif icant soft tissue swelli ng anteri candido. Some soft tissue swelli ng by the latera l ankle. Electr onical ly Signed in Cassidy cribe By Zenobia hawley MD 031 XR/XR ankle RT min 3V Impres belinda: No acute fractu re is seen. Partia l wideni ng of the medial ankle mortis e. If signif icant persis tent sympto ms, recomm end follow up radiog raph in 10-14 days (prefe rably with BB marker over the region of intere st). See body of report . Dictat ed By: Zenobia in Hue hawley Signed By: 2027 DD/DT: 1505 TD/TT: 1505 Transc riptio nist: BF [email or web address] [facility] [address] [place], [address], 03/12/2023 11:43:40 03/10/2003/08/2023 XR, ankle , 3 or more view No observ ation record ed. MANUELITO Not Available 2022 17:22:21 Result Notes None recorded. Problems Name Problem SNOMED Code Status Onset Date Resolution Date Notes Provider Name and Address Organization Details Recorded Time Anxiety 16198705 Active 2017 social anxiety, evaluate d by MCPAPrec ommended zoloft 12.5 mg daily titratin g up for symptom relief. MIKAELA Mcdonald [address] [place], [address] , [facility] 4 21:43:39 Overeati ng 31881422 Active 2017 binge eating disorder MIKAELA GARCES [address] [place], [address] , [facility] 8 13:05:31 Seasonal allergy 149559842 Active 2017 MIKAELA Mcdonald [address] [place], [place] [address], [address] , [facility] 4 21:43:39 Chronic constipa tion 159994680 Active 2017 MIKAELA Mcdonald [address] [place], [place] [address], [address] , [facility] 4 21:43:39 Depressi ve disorder 09609340 Active 2017 MIKAELA GARCES [address] [place], [place] [address], [address] , [facility] 8 12:54:14 Eczema 00283864 Active 2017 MIKAELA Mcdonald [address] [place], [place] [address], [address] , [facility] 4 21:43:39 Urinary tract infectio us disease 98893150 Completed 201702/10/2019 MIKAELA Mcdonald [address] [place], [place] [address], [address] , [facility] 9 14:11:44 Essentia l tremor 989254630 Active 2017 MIKAELA Mcdonald [address] [place], [place] [address], [address] , [facility] 4 21:43:39 Methicil juan diego resistan t Staphylo coccus aureus infectio n 735432487 Active 2017 right middle finger MIKAELA Mcdonald [address] [facility] [place] [place], [address] , [facility] 4 21:43:39 Cutting self 637286724 Active 2017 MIKAELA GARCES [address] [facility] [address] , [facility] 8 13:10:17 Childhoo d obesity 544015129 Active 2017 MIKAELA Mcdonald [address] [facility] [place], [address] , [facility] 4 21:43:39 Dyslexia 14250185 Active 2018 504 accomoda [address]ion plan in place MIKAELA Mcdonald [address] [place], [address] , [facility] 4 21:43:39 Simple febrile seizure 726685808 Completed 200309/14/2018 MIKAELA GARCES [address] [place], [address] , [facility] 9 09:17:12 Headache 78855650 Active 2018 MIKAELA GARCES [address] [facility] [place], [address] , [facility] 9 10:37:42 Developm ental delay 595574327 Active 2019 MIKAELA Mcdonald [address] [facility] [place], [address] , [facility] 0 08:09:59 Fracture d nasal bones 099040072 Active 2022 MIKAELA Mcdonald [address] [facility] [place], [address] , [facility] 3 21:19:59 Concussi on injury of brain 779668700 Active 2022 MIKAELA Mcdonald [address] [place], [address] , [facility] 3 21:20:10 Attentio n deficit hyperact ivity disorder , combined type 22891720 Active 2022 MIKAELA Mcdonald [address] [place], [address] , [facility] 3 14:10:09 Morbid obesity 637003486 Active 2022 MIKAELA Mcdonald [address] [place], [address] , [facility] 3 21:46:51 Irregula r periods 98846758 Active 2022 MIKAELA Mcdonald [address] [place], [address] , [facility] 3 12:24:02 Liver enzymes level above referenc e range 937090741 Completed 202203/31/2023 MIKAELA Mcdonald [address] [place], [address] , [facility] 3 17:09:05 Systolic murmur 52422847 Active 2022 MIKAELA Mcdonald [address] [place], [address] , [facility] 3 12:32:53 Gastroes ophageal reflux disease 551537264 Active 2022 MIKAELA Mcdonald [address] [place], [address] , [facility] 3 09:16:48 Bipolar disorder 26869361 Active 2022 Trina Chávez MD [address] [place], [address] , [facility] 3 11:09:26 Closed fracture radial styloid 537658011 Active MIKAELA Mcdonald [address] [place], [place] [address], [address] , [facility] 4 21:42:18 Severe recurren t major depressi on without psychoti c features 17942321 Active MIKAELA Mcdonald [address] [place], [place] [address], [address] , [facility] 4 21:42:18 Menorrha charito 597633095 Active MIKAELA Mcdonald [address] [place], [place] [address], [address] , [facility] 4 21:42:18 Delibera te self-cut ting 668858097 Active 2017 MIKAELA Mcdonald [address] [place], [place] [address], [address] , [facility] 4 21:42:18 Attentio n deficit hyperact ivity disorder 130552663 Active 2017 MIKAELA Mcdonald [address] [place] [address] [place], [address] , [facility] 4 21:42:18 Cognitiv e developm ental delay 802354918 Active 2019 MIKAELA Mcdonald [address] [place] [address] [place], [address] , [facility] 4 21:42:18 Binge eating disorder 353323898 Active 2017 MIKAELA Mcdonald [address] [place] [address] [place], [address] , [facility] 4 21:42:18 Moderate depresse d bipolar I disorder 86296136 Active MIKAELA Mcdonald [address] [place] [address] [place], [address] , [facility] 4 21:42:19 Problem Notes None recorded. Procedures Surgical History Date Name Laterality Status Provider Name and Address Organization Details Recorded Time 12/17/19 24 Nutrition cancelled ENIO DENNIS RDN, LD [address] [place], [address], [facility] 12/17/2023 12:27:36 02/13/20 23 Advance Care Plan cancelled MIKAELA Atkins [address] [place], [address], [facility] 02/10/2023 21:46:32 01/16/20 22 PHQ-9 Patient Health Questionnaire completed TOMÁS Morales [facility] 01/15/2022 08:26:05 09/26/19 21 Nutrition completed ENIO DENNIS RDN, LD [address] [place], [place] [address], [address], [facility] 09/26/2020 14:51:22 07/26/20 20 Nutrition completed ENIO DENNIS RDN, LD [address] [place], [place] [address], [address], [facility] 07/31/2020 12:07:28 06/28/20 20 Nutrition completed ENIO DENNIS RDN, LD [address] [place], [place] [address], [address], [facility] 06/28/2020 14:13:39 06/06/20 20 new patient counseling (20-29 minutes) completed Crystal Rudd MD [address] [place], [place] [address], [address], [facility] 06/06/2020 11:06:47 05/24/20 20 Nutrition completed ENIO DENNIS RDN, LD [address] [place], [place] [address], [address], [facility] 06/06/2020 15:31:32 04/25/20 20 Nutrition completed ENIO DENNIS RDN, LD [address] [place], [place] [address], [address], [facility] 05/01/2020 14:15:26 04/12/20 20 CRAFFT completed Citlalli Chavez [facility] 04/12/2020 11:45:56 04/12/20 20 PHQ-9 Patient Health Questionnaire completed MIKAELA Atkins [address] [place], [place] [address], [address], [facility] 04/12/2020 12:36:31 03/28/20 20 Nutrition completed ENIO DENNIS RDN, LD [address] [place], [address], [facility] 03/28/2020 11:26:24 01/26/20 20 PHQ-9 Patient Health Questionnaire completed Kirstie Lopez [facility] 01/26/2020 15:40:21 04/07/20 19 [facility] 14:17:49 04/07/20 19 PHQ-9 Patient Health Questionnaire completed MIKAELA Atkins [address] [place], [place] [address], [address], [facility] 04/18/2019 19:07:29 02/11/20 19 PHQ-9 Patient Health Questionnaire completed MIKAELA Atkins [address] [place], [place] [address], [address], [facility] 02/10/2019 14:55:53 dilation of urethra completed [place]KA[place] [address], [facility] 09/15/2018 10:38:43 tonsillectomy completed MIKAELA GARCES [address] [place], [place] [address], [address], [facility] 09/15/2018 10:39:17 Imaging Results Imaging Date Name Status [facility] Details LastModified Time 03/08/2023 XR, ankle, 3 or more view completed [email or web address] [facility] [address] [place], [address], 03/12/2023 11:43:40 03/08/2023 XR, ankle, 3 or more view completed MANUELITO Information not available 03/10/2023 17:22:21 Procedure Notes None recorded. Medical Equipment None Reported. Allergies Allergen ID Allergen Name Allergen Category Reaction Reaction Severity Criticality Documentation Date Start Date Code Code System Note Provider Name and Address Organization Details Recorded Time 793289 Substance with sulfonami de structure and antibacte rial mechanism of action (substanc e) medicatio n diarrhea Not available Not available 06/03/2018 49715 8003 SNOMED [facility] 8 15:20:00 863868 Vyvanse medicatio n Not available Not available Not available 10/18/2019 74993 3 RxNorm ? Esperanzae andrewve MIKAELA Byrne [address] [place] [address], [address], [facility] 0 22:37:10 880113 lisdexamf etamine medicatio n Not available Not available Not available 02/19/20232022 17466 0 RxNorm Chaparro Pondardi TOMÁS kate, [facility] 3 08:01:33 543910 Canis lupus familiari s extract environme nt rash Not available Not available 02/19/20232022 36177 4 RxNorm Chaparro [facility] 3 08:01:33 Medications Name Sig Start Date Stop Date Status Note LastModified by Organization Details LastModified Time Miralax 17 gram/dose oral powder Take 17 g mixed with liquid drink by mouth daily as directed . 09/28 completed prn Not Available Not Available Not Available buspirone 5 mg tablet TAKE 1 TABLET BY MOUTH TWICE A DAY DIRECTED 02/06 completed Not Available Not Available Not Available clonidine HCl 0.1 mg tablet TAKE 1 TABLET BY MOUTH TWICE DAILY NEEDED 08/26 completed Not Available Not Available Not Available trazodone 50 mg tablet Take 1 tablet every day by oral route at bedtime. 08/26 completed Not Available Not Available Not Available Concerta 18 mg tablet,ex tended release TAKE 1 TABLET BY MOUTH EVERY MORNING 10/01 completed not taking 10/01/24 AR Not Available Not Available Not Available triamcino lone acetonide 0.5 % topical cream APPLY THIN COAT TO AFFECTED AREA TWICE A DAY 01/15 completed Not Available Not Available Not Available sertralin e 100 mg tablet TAKE 1 TABLET BY MOUTH EVERY DAY FOR DEPRESSI ON 08/26 completed Not Available Not Available Not Available olanzapin e 5 mg tablet TAKE 0.5 TABLET BY ORAL ROUTE ONCE AT BEDTIME 01/14 completed Not Available Not Available Not Available hydroxyzi ne pamoate 50 mg capsule TAKE 1 CAPSULE BY MOUTH EVERY 8 HOURS NEEDED FOR MODERATE TO SEVERE ANXIETY 08/26 completed Not Available Not Available Not Available lithium carbonate 150 mg capsule TAKE 1 CAPSULE BY MOUTH AT BEDTIME, FOR TOTAL DAILY DOSE OF 1350 MG active Not Available Not Available No t Available hydroxyzi ne HCl 50 mg tablet Take 1 tablet every 8 hours by oral route as needed. 03/03 completed Not Available Not Available Not Available Westcort 0.2 % topical cream twice daily as needed 01/15 completed Not Available Not Available Not Available triamcino lone acetonide 0.1 % topical cream APPLY THIN COAT TO AFFECTED AREA TWICE A DAY 02/06 completed Not Available Not Available Not Available lithium carbonate ER 450 mg tablet,ex tended release TAKE 1 TABLET EVERY MORNING AND TAKE 2 TABLETS EVERY DAY AT BEDTIME active Not Available Not Available No t Available lamotrigi ne 25 mg tablet TAKE 1 TABLET BY MOUTH TWICE DAILY DIRECTED 08/26 completed Not Available Not Available Not Available pantopraz ole 20 mg tablet,de layed release TAKE 1 TABLET BY MOUTH ONCE DAILY DIRECTED 08/26 completed Not Available Not Available Not Available ofloxacin 0.3 % ear drops INSTILL 10 DROPS INTO AFFECTED EAR(S) BY OTIC ROUTE ONCE DAILY X 7 DAYS 02/06 completed Not Available Not Available Not Available amoxicill in 875 mg tablet 01/15 completed Pt states not taking. -PC 01/15/22 Not Available Not Available Not Available betametha sone valerate 0.1 % topical cream APPLY A THIN LAYER TO THE AFFECTED AREA(S) BY TOPICAL ROUTE ONCE DAILY 2023 active Not Available Not Available Not Avai lable lithium carbonate 600 mg capsule TAKE 1 CAPSULE BY MOUTH TWICE A DAY 10/01 completed Not Available Not Available Not Available lithium carbonate 300 mg capsule TAKE ONE CAPSULE IN THE MORNING - NEW DOSE 10/01 completed Not Available Not Available Not Available buspirone 10 mg tablet TAKE 1 TABLET BY MOUTH THREE TIMES A DAY NEEDED FOR ANXIETY 08/26 completed Not Available Not Available Not Available lidocaine 5 % topical patch APPLY 1 PATCH BY TOPICAL ROUTE ONCE DAILY (MAY WEAR UP TO 12HOURS. ) 01/15 completed Not Available Not Available Not Available ibuprofen 200 mg tablet TAKE 2-3 TABLETS BY MOUTH EVERY 6-8 HOURS NEEDED FOR PAIN active Not Available Not Available No t Available docusate sodium 100 mg capsule TAKE 1 CAPSULE TWICE DAILY NEEDED FOR CONSTIPA TION 10/01 completed Not Available Not Available Not Available sertralin e 25 mg tablet Take by oral route. 08/13 completed Not Available Not Available Not Available hydroxyzi ne HCl 25 mg tablet TAKE 1 TABLET BY MOUTH TWICE DAILY NEEDED FOR ANXIETY 01/14 completed Not Available Not Available Not Available Culturell e 10 billion cell capsule Take 1 capsule every day by oral route as directed . 02/10 completed Ins. will not pay/ Does not take Not Available Not Available Not Available olanzapin e 15 mg tablet TAKE 1 TABLET BY MOUTH ONCE DAILY 09/26 completed Not Available Not Available Not Available polyethyl george glycol 3350 (bulk) powder TAKE 17 G MIXED WITH LIQUID DRINK BY MOUTH DAILY DIRECTED . 09/28 completed prn Not Available Not Available Not Available clobetaso l 0.05 % topical ointment APPLY A THIN LAYER OF OINTMENT TOPICALL Y TO THE AFFECTED AREA(S) TWICE DAILY active Not Available Not Available No t Available ibuprofen 600 mg tablet TAKE 1 TABLET BY MOUTH 3 TIMES A DAY AROUND THE CLOCK 01/15 completed Not Available Not Available Not Available sertralin e 50 mg tablet 3 tabs PO for total dose of 150 mg daily 03/03 completed Not Available Not Available Not Available loratadin e 10 mg tablet TAKE 1 TABLET BY MOUTH EVERY DAY IN THE MORNING 08/263 completed Not Available Not Available Not Available hydroxyzi ne pamoate 25 mg capsule TAKE 1 CAPSULE BY MOUTH TWICE A DAY NEEDED FOR ANXIETY active Not Available Not Available No t Available cyclobenz aprine 5 mg tablet Take 1 tablet every 8 hours by oral route as needed for 5 days. 01/15 completed pt no longer taking Not Available Not Available Not Available aripipraz ole 5 mg tablet TAKE 1 TABLET BY MOUTH ONCE DAILY DIRECTED FOR 30 DAYS 08/26 completed Not Available Not Available Not Available Focalin XR 20 mg capsule,e xtended release Take by oral route. 10/03 completed Not Available Not Available Not Available Miralax 02/10 completed Not Available Not Available Not Available Focalin XR 15 mg capsule,e xtended release Take by oral route. 03/19 completed Not Available Not Available Not Available quetiapin e 50 mg tablet TAKE 0.5 TABLET BY MOUTH EVERYDAY AT BEDTIME active Not Available Not Available No t Available Vyvanse 50 mg capsule Take 1 capsule every day by oral route for 28 days. 10/18 completed [employer] verified , CSRP, KYLEE 10/05/18, FOV 11/27/18 last filled 11/03/18 Not Available Not Available Not Available Focalin XR 30 mg capsule,e xtended release Take by oral route. 06/19 completed Not Available Not Available Not Available loratadin e 10 mg capsule as needed 04/07 completed Not Available Not Available Not Available Focalin XR 25 mg capsule,e xtended release Take by oral route. 02/10 completed Not Available Not Available Not Available Tri-Estar ylla (28) 0.18 mg(7)/0.2 15 mg(7)/0.2 5 mg(7)-35 mcg tablet TAKE 1 TABLET BY MOUTH EVERY DAY DIRECTED active Not Available Not Available No t Available Vitals Date Recorded Body height Body mass index (BMI) Body mass index (BMI) Percentile per age and sex Body weight Heart rate Oxygen saturation Oxygen saturation in Arterial blood by Pulse oximetry Systolic blood pressure Diastolic blood pressure Provider Name and Address Organization Details Last Updated DateTime 3 153.67 cm 40.9 kg/m2 98 % 10166.1 7 g 84 /min 98 % 98 % 110 mm[Hg] 68 mm[Hg] [facility] 08:27:40 Date Recorded Body height Body mass index (BMI) Body mass index (BMI) Percentile per age and sex Body weight Heart rate Oxygen saturation Oxygen saturation in Arterial blood by Pulse oximetry Systolic blood pressure Diastolic blood pressure Provider Name and Address Organization Details Last Updated DateTime 3 153.67 cm 45.7 kg/m2 99 % 090643. 98 g 95 /min 97 % 97 % 118 mm[Hg] 62 mm[Hg] Mason Muhammad [facility] 3 11:01:09 Date Recorded Body height Body mass index (BMI) Percentile per age and sex Body mass index (BMI) Body weight Oxygen saturation Oxygen saturation in Arterial blood by Pulse oximetry Heart rate Systolic blood pressure Diastolic blood pressure Provider Name and Address Organization Details Last Updated DateTime 4 153.67 cm 99 % 47.1 kg/m2 517565. 13 g 97 % 97 % 102 /min 110 mm[Hg] 70 mm[Hg] Kirstie Lopez CMA [facility] 4 16:12:14 Date Recorded Body height Body mass index (BMI) Body weight Heart rate Oxygen saturation Oxygen saturation in Arterial blood by Pulse oximetry Systolic blood pressure Diastolic blood pressure Provider Name and Address Organization Details Last Updated DateTime 4 153.67 cm 49.2 kg/m2 580793. 65 g 92 /min 99 % 99 % 126 mm[Hg] 80 mm[Hg] Cherise Chun [facility] 4 15:25:01 Date Recorded Body height Heart rate Oxygen saturation Oxygen saturation in Arterial blood by Pulse oximetry Body mass index (BMI) Body weight Systolic blood pressure Diastolic blood pressure Provider Name and Address Organization Details Last Updated DateTime 5 153.67 cm 99 /min 99 % 99 % 47.3 kg/m2 998254. 72 g 130 mm[Hg] 98 mm[Hg] Nancy Moulton MA [facility] 5 16:19:14 Date Recorded Systolic blood pressure Diastolic blood pressure Provider Name and Address Organization Details Last Updated DateTime 10/01/2024 128 mm[Hg] 82 mm[Hg] Trina Chávez MD [address] [place], [address], [facility] 10/01/2024 17:09:02 Social History Question Answer Notes LastModified by Organization Details LastModified Time Tobacco Smoking Status Never Smoker CHAD THOMAS NP [address] [place], [address], [facility] 06/03/2018 15:29:01 Do You Have An Advance Directive? Yes Mom, Form Completed Information not available 08/26/2023 What Is Your Level Of Alcohol Consumption? None Information not available 08/26/2023 What Is Your Code Status? Full Code [email or web address] Information not available 08/26/2023 What Type Of Diet Are You Following? REGULAR Information not available 04/12/2020 Do You Or Have You Ever Used E-cigarettes Or Vape? Never Used Electronic Cigarettes Information not available 04/12/2020 Are There Any Guns Present In Your Home? No Information not available 04/12/2020 Hand Dominance Bilateral Informatio n not available 04/12/2020 Tobacco Use (smoking, Smokeless Tobacco) No Information not available 09/15/2018 Date Of Tobacco Screen 10/01/2024 [email or web address] Information not available 10/01/2024 Siblings In Home Yes 1 Information not available 09/15/2018 Father Working Outside Of Home No Information not available 09/15/2018 Relationship With Mother Well Information not available 09/15/2018 Relationship With Father Fair Information not available 09/15/2018 Have You Moved Since Your Last Visit? No Information not available 09/15/2018 How Many Siblings? 4 1 Brother, 3 Sisters Information not available 09/15/2018 Child Lives With Mom Marina Information not available 09/15/2018 Who Else Lives In Home Grandparents Information not available 09/15/2018 Number Of Siblings 4 Information not available 04/12/2020 Tobacco Exposure No Information not available 09/15/2018 Pets In Home Yes 2 Cats Information not available 04/12/2020 Mother In Home Yes Informatio n not available 09/15/2018 Father In Home No Dirk Informatio n not available 09/15/2018 Grade In School 11 Informati on not available 04/12/2020 CO Detector In Home Yes Information not available 04/12/2020 Failed/Repeated Grade In School Yes Failed Kindergarten Information not available 04/12/2020 Behavior In School Well Information not available 04/12/2020 Special Education Services Yes IEP Information not available 04/12/2020 Academic Performance Fair Information not available 04/12/2020 What Was The Date Of Your Most Recent Tobacco Screening? 10/01/2024 Information not available 10/01/2024 Seat Belts Used Routinely Yes Information not available 04/12/2020 Are You Sexually Active? No Never adamour Information not available 06/06/2020 Smoke Alarm In Home Yes Information not available 04/12/2020 Do You Or Have You Ever Used Smokeless Tobacco? Never Used Smokeless Tobacco Information not available 04/12/2020 Do You Use Any Illicit Or Recreational Drugs? No Information not available 08/26/2023 Do You Use Sunscreen Routinely? Yes Information not available 04/12/2020 Do You Or Have You Ever Used Any Other Forms Of Tobacco Or Nicotine? No [email or web address] Information not available 01/15/2022 Sex: Female Functional Status Question Answer Note LastModified by Organizat ion Details LastModified Time What is your exercise level? Occasional Information not available 04/12/2020 Mental Status None recorded. Family History Relationship Description Onset Age of this Age Resolved Age Notes LastModified by Organization Details LastModified Time Brother Anxiety tkanev Not available 0 09/15/2018 10:29:45 Brother Depressive disorder tkanev Not available 2018 10:32:11 Sister Anxiety tkanev Not available 10:29:45 Sister Depressive disorder tkanev Not available 2018 10:32:11 Sister Mental disorder schizo phreni a Not available 08/26/2023 11:25:47 Sister Attention deficit hyperactivit y disorder tkanev Not available 09/15 10:34:23 Father Anxiety tkanev Not available 10:29:45 Father Hypertensive disorder tkanev Not available 2018 10:33:13 Father Substance abuse tkanev Not available 2018 10:33:36 Father Mental disorder schizo phreni a Not available 08/26/2023 11:26:00 Father Attention deficit hyperactivit y disorder tkanev Not available 09/15 10:34:23 Unspecified Relation Anxiety grand parent s tkanev Not available 09/15/2018 10:29:45 Unspecified Relation Asthma grand mother tkanev Not available 09/15/2018 10:30:10 Unspecified Relation Malignant tumor of breast matern al great grandm other great aunt edack Not available 06/06/2020 10:32:53 Unspecified Relation Depressive disorder all grandp arents tkanev Not available 09/15/2018 10:32:11 Unspecified Relation Depressive disorder aunt and uncle tkanev Not available 09/15/2018 10:32:11 Unspecified Relation Hypertensive disorder all grandp arents tkanev Not available 09/15/2018 10:33:13 Unspecified Relation Hypertensive disorder uncle tkanev Not available 2018 10:33:13 Maternal Grandfather Malignant tumor of colon tkanev Not available 2018 10:31:01 Maternal Grandfather Congestive heart failure tkanev Not available 2018 10:31:12 Maternal Grandfather Diabetes mellitus tkanev Not available 2018 10:32:32 Mother Diabetes mellitus tkanev Not available 2018 10:32:32 Mother Malignant tumor of cervix edack Not available 2019 10:33:28 Mother Malignant tumor of ovary [email or web address] Not available 12:22:46 Paternal Grandmother Attention deficit hyperactivit y disorder tkanev Not available 09/15 10:34:23 Notes:Endometriosis Medical History Condition Response bladder / kidney infection(s) Y other Y Gynecological History Statement/Question Response Gonorrhea/Chlamydia N Age at Menarche 13 Date of LMP 04/11/2020 Obstetrics History GPAL:G 0 P 0 0 0 0 Immunizations Vaccine Type Date Status Note Provider Nam e and Address Organization Details Recorded Time meningococcal B, unspecified 8 completed MIKAELA GARCES [address] [place] [address] [place], [address], [facility] 09/14/2018 09:28:08 HPV, unspecified formulation 8 completed MIKAELA GARCES [address] [place] [address], [place], [address], [facility] 09/14/2018 09:30:28 HPV, bivalent 8 completed MIKAELA GARCES [address] [place] [address], [place], [address], [facility] 09/14/2018 09:31:59 COVID-19, mRNA, LNP-S, PF, 100 mcg/0.5mL dose or 50 mcg/0.25mL dose 1 completed MIKAELA Atkins [address] [place] [address] [place], [address], [facility] 12/07/2023 21:42:19 COVID-19, mRNA, LNP-S, PF, 100 mcg/0.5mL dose or 50 mcg/0.25mL dose 1 completed [facility] 03/12/2023 08:01:14 HPV9 9 completed Not Available [facility] 09/25/2019 02:21:15 Tdap 9 completed Not Available [facility] 09/25/2019 02:21:41 Hep A, ped/adol, 2 dose 9 completed Not Available [facility] 09/25/2019 02:21:17 Influenza, split virus, quadrivalent, PF 0 completed MIKAELA Atkins [address] [place] [address] [place], [address], [facility] 12/07/2023 21:42:19 influenza, unspecified formulation 3 completed Trina Chávez MD [address] [place] [address] [place], [address], [facility] 08/26/2023 11:20:16 Influenza, split virus, quadrivalent, PF 9 completed Not Available [facility] 09/25/2019 02:22:42 meningococcal MCV4P 0 completed MIKAELA Atkins [address] [place], [address], [facility] 04/12/2020 15:40:53 Hep A, ped/adol, 2 dose 0 completed MIKAELA Atkins [address] [place], [address], [facility] 04/12/2020 15:40:53 Influenza, split virus, trivalent, PF 4 completed Trina Chávez MD [address] [place], [address], [facility] 10/01/2024 16:36:27 Past Encounters Encounter ID Performer Location Encounter Start Date Encounter Closed Date Diagnosis/Indication Diagnosis SNOMED-CT Code Diagnosis ICD10 Code Diagnosis Note [id number] Lucille Rivers MD [facility] [address] [place] [address] 06/03/2018 15:04:16 06/04/2018 07:54:38 Pain in finger 99178977 M79.644 Will provide with order for x-ray today to evaluate for fracture. Fracture o f middle phalanx of finger 966231604 S62.656A Hairline fracture of middle phalanx proximal to PIP, Radiology called and confirms ? extensor tendon injury given decreased ROM on exam or possibly secondary to effects of fracture on joint articulati on. Advised needs f/u with hand specialist . Effected finger placed in splint with coban wrap. Advised non-weight bearing untill evaluated further. Patient will contact PCP for appropriat e referrals. Given note for school. PCP's office called and notified of fracture and need for referral to hand specialist . Otalgia 46953544 H92.01 Discussion r/t this is likely due to ETD. Advised Flonase, warm compresses , and yawning exercises. Advised to return if symptoms worsen, however, or fail to improve over the course of the next week. [id number] Trina Chávez MD [address] [address] 08/28/2018 12:35:45 08/28/2018 13:14:14 Attention deficit hyperactivity disorder, predominantly inattentive type 68671939 F90.0 stable on current dosing. no changes at this time. refill requested. cont to monitor. f/u med check in 3 months. Childhood obesity 190953 003 Z68.54 binge eating diagnosed by [facility]. neurology per mom plans to evaluate for prader willi. await recommenda tions and referral notes from neurology cont to monitor [id number] Trina Chávez MD [address] [address] 10/05/2018 15:00:26 10/05/2018 15:53:35 Acute pharyngitis 098775659 J02.9 Rapid strep test negative in office today. Will send throat culture. Advised supportive care with PO fluids, APAP/NSAID s for discomfort , rest, and frequent hand washing. Will call patient if throat culture positive for GAS. [id number] Trina Chávez MD [address] [address] 11/27/2018 12:12:35 11/27/2018 13:08:18 Developmental delay 610235196 R62.50 Has been seen by Pediatric Neurology, will request their evaluation records. Has upcoming appointmen t with Genetics. Presently receiving IEP support. Depressive disorder 3793 7802 F32.9 Is followed by [facility] and mom to sign release so I can speak with present providers. Important she follow up with Psychiatry . Will make [facility] referral. and get their input prior to any medication changes. Attention deficit hyperactivity disorder, predominantly inattentive type 97662041 F90.0 Plan as above. Muscle weakness 29743436 M62.81 HAd been evaluated by PT who had recommende d treatment for generalize d muscle weakness, WIll refer to PT for evaluation . [id number] Lucille Rivers MD [facility] [address] [address] 12/28/2018 15:11:52 12/28/2018 16:22:11 Pleuritic pain 5241903 R07.81 Wet read of xray without c/o acute process. Discussed symptoms likely muscular in nature and would treat as such with ibuprofen, light stretches, and heat. F/u with PCP if symptoms not improved over the next 3-5 days; sooner for acute worsening. Discussed s/s that would warrant immediate ED eval Strain of back muscle 26 7306403 S39.012A [id number] Yuliana og, PA [address] [address] 02/10/2019 13:57:34 02/10/2019 14:56:44 Attention deficit hyperactivity disorder, predominantly inattentive type 31466770 F90.0 Stable on vyvanse 50 mg daily. Plan to continue current dose. Pt seeing genetics and has an upcoming apt with neurology for further evaluation of cause of learning issues. Depressive disorder 3548 9003 F32.1 Not improving with use of sertraline 100 mg daily. She takes it during the day and gets sleepy. Plan to take at night to help her fall asleep along with good sleep hygiene. Has associated anxiety. Provided pt and mother option to either increase sertraline dose or add another agent such as buspirone to address anxiety and augment sertraline . Mother decides to add buspirone. f/u in 1 mo or sooner prn. Anxiety 18437566 F41.9 Will start trial of buspirone 5 mg. Start qhs. If anxiety not controlled or no improvemen t in depression , can take BID. Eczema 46725427 L30.9 On a flare. Discussed skin care routine - use of gentle skin cleansers, moisturize r. Will Rx triamcinol one BID on affected areas. f/u prn. Dermatolog y if refractory . Consider allergy referral. Eating disorder 50887863 F50.9 Recommend referral to nutritioni st who specialize s in eating disorders. [id number] Kadi Pressley NP [facility] [address] [place] [address] 03/12/2019 17:34:55 03/12/2019 18:08:49 Acute pharyngitis 707598005 J02.9 Rapid strep negative. Will send culture. No antibiotic s warranted at this time. Continue conservati ve measures to include throat lozenges/s pray, tylenol/ib uprofen as needed for pain/disco mfort, increased fluids to include warm beverages, tea with honey, ice chips, popsicles. Avoid acidic foods and carbonated beverages. Rec f/u with PCP in next 5-7 days if throat culture normal and symptoms not improved for re-eval and possible labwork to include lyme testing although pt at low risk [id number] Yuliana og, PA [address] [address] 04/07/2019 14:08:47 04/07/2019 16:24:28 Well child 525051150 Z00.129 Immunizati on counseling provided to parents/gu tangan. Parent/car egiver consents to vaccine administra tion below. Anticipato ry guidance discussed. Hand out given. Administra tion of viral vaccine 05369050 Z23 Administra tion of diphtheria, pertussis, and tetanus vaccine 928978038 Z23 Depressive disorder 3548 9007 F32.1 PHQ-9 Score: 13 correlates with moderate depression . Pt reports stable symptoms. Receives therapy weekly. Con't sertraline 100 mg daily and buspirone 5 mg BID. Attention deficit hyperactivity disorder, predominantly inattentive type 41255736 F90.0 Stable on vyvanse 50 mg daily. Plan to continue current dose. Mother requests new neurology referral for further evaluation of cause of learning issues. Eczema 98536766 L30.9 Improved with use of triamcinol one prn. Needs refill. f/u prn. Dermatolog y if refractory . Consider allergy referral. Infective hepatitis immunization 858269260 Z23 Anxiety 72806986 F41.9 Controlled with addition of buspirone 5 mg BID. Plan to con't. Obesity 346845072 E66.9 Overeating . Requests nutrition referral. Learning difficulties 16 1601985 F81.9 [id number] Trina Chávez MD [address] [address] 07/13/2019 08:31:22 07/13/2019 09:09:38 Influenza vaccine needed 8388066720 106 Z23 Obesity 922225178 E66.9 SIgnifican t weight gain in the past year. Is undergoing genetics testing and neuropsych iatric testing for possible genetic/de velopmenta l contributo rs to her increased appetite. Discussed limiting access to high calorie foods and encouragin g increased physical activity. . Nutrition referral placed. Attention deficit hyperactivity disorder, predominantly inattentive type 29731085 F90.0 Continues on Vyvanse. Stable. [id number] Yuliana og, PA [address] [address] 09/23/2019 07:31:16 09/23/2019 07:59:21 Unintentional weight gain 4203877154 21425 R63.5 Will refer to endocrinol charlee as recommende d by neurology but to finding of a flattened pituitary gland on brain MRI. Hearing loss 75068235 H9 1.93 Likely due to fluid in TMs. Recommend tx above. Recheck audiogram in 2 weeks. Serous otitis media 8032 7007 H65.93 Recommend use of daily OTC antihistam ine (claritin, zyrtec or vee) and/or daily use of steroid nasal spray to control nasal congestion . f/u prn. Rhinitis 55073002 J00 Recommend use of daily OTC antihistam ine (claritin, zyrtec or vee) and/or daily use of steroid nasal spray to control nasal congestion . f/u prn. [id number] Trina Chávez MD [address] [address] 10/18/2019 07:39:57 10/18/2019 09:09:54 Serous otitis media 33423110 H65.93 Recommend use of daily OTC antihistam ine (claritin, zyrtec or vee) and/or daily use of steroid nasal spray to control nasal congestion . f/u prn. Hearing loss 43230359 H9 1.93 Audiogram still abnml but improved compared to last. TMs continue to have clear fluid. Recommend continued use of loratidine 10 mg daily. Unintentio nal weight gain 6100128259 87281 R63.5 Pt has an active referral to pediatric endocrinmouna deshpande. Attention deficit hyperactivity disorder, predominantly inattentive type 10260094 F90.0 d/c Vyvanse. Will rx trial of methylphen idate ER 18 mg daily. f/u in 2-4 weeks or sooner prn. Depressive disorder 6193 9007 F32.1 Mom and pt reports doing well with therapy, sertraline 100 mg daily and buspirone 5 m g BID. Seems to get worse when taking vyvanse. d/c vyvanse as above. Con't current mgt for now. Anxiety 91612477 F41.9 See above. Melanocyti c nevus of skin 468788080 D22.9 Referral to dermatolog y. [id number] Yuliana og PA [address] [address] 10/28/2019 14:17:27 10/28/2019 15:44:24 Sacroiliac joint pain 466240659 M53.3 Pt is having SI joint pain, mostly on the left side. Advised some stretching , ROM and abd muscle strengthen ing. IBU TID prn w/ food. f/u prn if no improvemen t or worsening. [id number] Trina Chávez MD [address] [address] 01/26/2020 15:29:11 01/26/2020 16:17:19 Abnormal weight gain 458311630 R63.5 Has follow up with Endocrinol ogist 02/04. Nutrition consult placed. Declined labs, will have checked by Endocrinol charlee. Major depr essive disorder 358226328 F32.9 Doing well on Sertraline and Buspar. Followed at [facility] for [facility] , recommende d follow up with psych provider. Attention deficit hyperactivity disorder, predominantly inattentive type 84036275 F90.0 COntinues on Methylphen idate, stable. Recommende d follow up Psychiatry . Mixed deve lopmental disorder 169019864 F88 [id number] ENIO DENNIS RDN, JASON [facility] [place] [facility] [address] [place] [address] 03/28/2020 09:57:51 04/07/2020 12:49:33 Childhood obesity 667618983 Z68.54 Pt presents for Outpatient Medical Nutrition Therapy via telemed (zoom) due to COVID19 pandemic, for initial diet assessment and recommenda tions regarding abnormal weight gain with BMI 34.8 (98th percentile for age and sex). Reports excessive calorie intake from processed carbohydra ori mostly and inactivity (see HPI and A/P. [id number] MIKAELA Mcdonald [facility] [address] [place] [address] 04/12/2020 11:28:24 04/13/2020 11:09:31 Well child 461693432 Z00.129 Immunizati on counseling provided to parents/gu tangan. Parent/car egiver consents to vaccine administra tion below. Anticipato ry guidance discussed. Hand out given. Administra tion of bacterial vaccine 780462321 Z23 Bacterial disease screening 781390928 Z11.2 Irregular periods 689797 07 N92.6 referaal to [employer]. Infective hepatitis immunization 157346326 Z23 Overeating 51398352 R63. 2 Pt is under the care of a pediatric endocrinol ogist and nutritioni . [id number] ENIO DENNIS RDN, JASON [facility] [place] [facility] [address] [place] [address] 04/25/2020 11:36:45 04/25/2020 13:50:46 Childhood obesity 392161176 Z68.54 Pt presents for Outpatient Medical Nutrition Therapy via telemed (zoom) due to COVID19 pandemic, for initial diet assessment and recommenda tions regarding abnormal weight gain with BMI 34.8 (98th percentile for age and sex). Reports excessive calorie intake from processed carbohydra ori mostly and inactivity (see HPI and A/P. [id number] ENIO DENNIS RDN, JASON [facility] [place] [facility] [address] [place] [address] 05/24/2020 14:38:28 05/29/2020 12:46:52 Childhood obesity 068619795 Z68.54 Pt presents for Outpatient Medical Nutrition Therapy via telemed (zoom) due to COVID19 pandemic, for initial diet assessment and recommenda tions regarding abnormal weight gain with BMI 34.8 (98th percentile for age and sex). Reports excessive calorie intake from processed carbohydra ori mostly and inactivity (see HPI and A/P. [id number] Crystal Rudd MD [facility] [address] [place] [address], [address] [place] [address] 06/06/2020 10:15:13 06/06/2020 12:08:01 Irregular periods 66985878 N92.5 [id number] Trina Chávez MD [facility] [address] [place] [address] 06/09/2020 15:20:42 06/09/2020 15:27:18 Influenza vaccine needed 6276069675 106 Z23 Patient presents for influenza vaccinatio n. Patient screened with questions from [phone] Flu Protocol. Discussed importance of influenza vaccine due to the patient's risk of contractin g the disease. A handout was offered to enhance understand ing of the effects and side effects of the vaccine. [id number] ENIO DENNIS RDN, J[facility] [place] [facility] [address] [place] [address] 06/28/2020 14:00:07 06/28/2020 16:18:07 Childhood obesity 292255185 Z68.54 Pt presents for Outpatient Medical Nutrition Therapy via telemed (zoom) due to COVID19 pandemic, for initial diet assessment and recommenda tions regarding abnormal weight gain with BMI 34.8 (98th percentile for age and sex). Reports excessive calorie intake from processed carbohydra ori mostly and inactivity (see HPI and A/P. Cowan made very little progress. Continues eating a lot of junk food and processed carbohydra ori. Does report improvemen t on portion size. Needs to continue working on exercise. [id number] ENIO DENNIS RDN, [facility] [place] [facility] [address] [place] [address] 07/26/2020 14:04:20 07/26/2020 14:17:42 Childhood obesity 744604363 Z68.54 Pt presents for Outpatient Medical Nutrition Therapy via telemed (zoom) due to COVID19 pandemic, for initial diet assessment and recommenda tions regarding abnormal weight gain with BMI 34.8 (98th percentile for age and sex). Reports excessive calorie intake from processed carbohydra ori mostly and inactivity (see HPI and A/P. Has made very little progress. eating a less food and processed carbohydra ori. Does report improvemen t on portion size. Needs to continue working on exercise. [id number] ENIO DENNIS RDN, [facility] [place] [facility] [address] [place] [address] 09/26/2020 14:26:42 09/29/2020 10:26:13 Childhood obesity 817709605 Z68.54 Pt presents for Outpatient Medical Nutrition Therapy via telemed (zoom) due to COVID19 pandemic, for initial diet assessment and recommenda tions regarding abnormal weight gain with BMI 34.8 (98th percentile for age and sex). Reports excessive calorie intake from processed carbohydra ori mostly and inactivity (see HPI and A/P. Has made very little progress. eating a less food and processed carbohydra ori. Does report improvemen t on portion size. Needs to continue working on exercise. [id number] MIKAELA Mcdonald [address] [address] 09/28/2020 11:56:07 09/29/2020 10:17:36 Attention deficit hyperactivity disorder, predominantly inattentive type 06489145 F90.0 Doing well on concerta 18 mg ER daily, takes on school days only. She has been recommende d for autism screening at the [facility] by her neurologis t, Dr. White. Depressive disorder 3548 9007 F32.1 Mom and pt reports doing well with therapy, sertraline 100 mg daily and buspirone 5 mg qhs. She sees her therapist, Cassy North, q4igouo and her mentor, Sophie q2wks. Childhood obesity 487265 003 Z68.54 Z68.41 BMI: 40.8. Pt is currently working with a Acceptd st for weight management . Con't to monitor. Anxiety 83526379 F41.9 Well controlled on current management . [id number] Lucille Rivers MD [facility] [address] [place] [address] 07/09/2021 15:57:57 07/09/2021 16:30:35 Low back pain 049025678 M54.50 Pt denies any bladder or bowel issues. No numbness or tingling, no weakness, no fever or chills, no HX of drug abuse, DM or spinal surgery. Gait is normal. Pain did increase on forward flexion Provided medication s as below. Recommend alternatin g heat and ice to area. Provided stretching exercises for pt. Encouraged pt to avoid sitting, standing or laying in one position for prolonged periods of time as that can exacerbate symptoms. Follow up with PCP in 7 days if not improving or sooner if worsening. [id number] Lucille Rivres MD [facility] [address] [place] [address] 12/04/2021 16:32:31 12/04/2021 17:12:43 Viral syndrome [id number] B34.9 Rest. Push fluids. You are contagious . Please use contact precaution s. You have been diagnosed with a viral illness. Antibiotic s will not treat a viral infection and may be harmful. Symptoms usually last 4 to 7 days; however if symptoms are worsening or do not get better please contact your Primary Care office. You may gargle with warm fluids or use acetaminop hen and/or ibuprofen for comfort. If additional symptoms develop such as fever of 101.5 F, shortness of breath, or wheezing contact your Primary Care office. [id number] Trina Chávez MD [facility] [address] [place] [address] 01/15/2022 08:14:24 01/15/2022 10:42:44 Adult health examination 378493307 Z00.00 Patient should discuss medical decisions with Health Care Proxy. Recommende d screenings included colonoscop y screening age 50, earlier based on family history/ri sk factors; annual mammogram age 50, unless earlier based on risk factors and discussion with patient; bone density age 65, unless risk factors for earlier screening; one time screen for hepatitis C if born between 1851-7981 or has risk factors. Reviewed vaccines and current recommenda tions. Basic health topics include aerobic exercise, importance of healthy/ba lanced diet and minimizing caffeine and alcohol. Well-appea ring 17-year-ol d female with normal physical examinatio n. Mom requesting control pills to help with regulating her period.Pt declined screening labs for A1C, lipids, etc. her left leg after Screening for malignant neoplasm of cervix 124593736 Z12.4 declined urine for GC/chlamyd ia - not sexually active - states they dont normally get this done Depressive disorder 9010 9001 F32.1 Pt no longer taking medication . Feels stable with PHQ9 of 2. Attention deficit hyperactivity disorder, predominantly inattentive type 94656682 F90.0 Pt stopped taking medication and does not feel that she needs it. Mom thinks concerta should be restarted. As pt is 17 yo will respect her decision on care. Eczema 06410270 L30.9 Bilateral lower arm eczema - Mother reports she needs a steroid cream. Eczema noted to AC joint and scattered to lower arms. Will order triamcinol one today. Recommend eucerin or lipikar AP balm to moisturize . Seasonal allergy 7185329 04 J30.2 She report that allergies are currently controlled by loratadine . She has no current concerns. Irregular periods 490069 07 N92.6 One period in past five months. Mother requests bcp to regulate. Consulted Dr Rivers - labs need to be checked to rule out systemic cause prior to using bcp to regulate menses. Pt declined labs today. Morbid obesity 430397957 E66.01 BMI 44.8. Discussed weight loss with healthy diet and exercise and the importance of this for preventing orthopedics teacher chronic health conditions [id number] Lucille Rivers MD [facility] [address] [address] 08/28/2022 14:26:13 08/28/2022 15:23:37 Acute otitis externa 06673304 H60.509 Otitis externa left will cover with prescripti on for see additional patient instructio ns below [id number] [facility] [address] [address] 12/11/2022 15:42:33 12/11/2022 16:45:03 Injury of face 217513368 S09.93XA Possible minimally displaced distal nasal fracture final rad read pending. Closed injury of head 45 45161863 06 S09.90XA Injury of hip region 125 100348 S79.912A No hip fracture seen on initial x-ray read final read read pending see additional patient instructio ns below Closed fra cture of nasal bones 88788132 S02.2XXA Patient has been advised to follow-up with PCP may need ENT referral within 2 weeks. [id number] Trina Chávez MD [facility] [address] [place] [address] 12/19/2022 08:52:43 12/19/2022 12:02:33 Closed fracture of nasal bones 58831860 S02.2XXD Minimal nasal fracture by xray and approx 0.5 cm healing abrasion to the bridge of the nose with no signs of underlying infection. Suicidal thoughts 778835 6 R45.851 In ED last night for SI and intrusive thoughts. Seen by HEALTH EQUIPMENT SERVICER with [facility] for zoom with partial program made with her mother. Long discussion about current symptoms. Offered to call partial program during the visit which patient declined stating she would call at home. The patient reports being safe at this time with support at home and plan in place. Paperwork completed for [facility] [id number] MIKAELA Mcdonald [address] [address] 12/24/2022 14:03:38 12/24/2022 14:46:03 Fractured nasal bones 281153980 S02.2XXA Pt reports increased pain today. Would like ENT referral. Concussion injury of brain 698900491 S06.0X0A s/p fall. She continues to have daily headaches but symptoms improving overall. Advise to continue brain rest until headache free for at least 24 hours then can try to go back to work. f/u in 1 wk. Depressive disorder 6230 0817 F33.9 Awaiting call from Partial Program. She feels safe, practicing self care. Support from friends. Headache 59982625 R51.9 Concussion from fall vs radiation from nasal fx vs seasonal allergies. She is taking ibu prn which has been helpful. Advise to continue brain rest. [id number] MIKAELA Mcdonald [address] [address] 01/07/2023 13:39:37 01/07/2023 14:39:58 Concussion injury of brain 100914759 S06.0X0A s/p fall. No asymptomat ic. Depressive disorder 3548 9007 F33.9 - Referral to Partial Program- Will start on sertraline as she did well on this in the past- Pt reports having a good support system Attention deficit hyperactivity disorder, combined type 29060755 F90.2 Pt wants to restart vyvanse. Controlled substance agreement signed today. UTOX to be done today. Restart on sertraline and buspirone. Referral to partial program. f/u in 2-4 weeks to determine if appropriat e to restart stimulant. Eczema 74501303 L30.9 On a flare likely due to stress and anxiety. Using cerave moisturize r which is helpful. Needs triamcinol one cream refill. Anxiety 91274657 F41.9 - To restart sertraline and buspirone 5 mg BID.- See above. [id number] Yuliana Hernandez-MIKAELA Partida [facility] [address] [place] [address] 03/03/2023 12:03:31 03/03/2023 13:20:11 Depressive disorder 75064048 F33.9 ADMISSION: 02/11/23 to 02/25/23 for Depression with Suicidal Ideations w/ Plan.She was admitted after presentati on to the ED on 02/08/23 after being d[facility] from [facility]. - Pt was started on lamictal and abilify which helped with pt's intrusive thoughts. ADMISSION: 01/29/23 - 02/05/23 [facility] for suicidal thoughts with plan to jump out of a window.Dis charge medication s:- Betamethas one Valerate 0.1% topical cream- Buspirone 10 mg TID- Hydroxyzin e 50 mg 1 Cap PO every 8 hours- Sertraline 50 mg 3 tabs PO (150 mg) - lowered to 100 mg daily at [place]- Trazadone 50 mg 1 tab PO at Pt has been referred to HEALTH EQUIPMENT SERVICER for therapy and medication mgt. Angelika huber on 02/27. She has seen both therapist and psychiatri st. f/u with therapist already scheduled to be seen once a week. Pt states the sertraline with buspirone helps her ADHD symptoms. Attention deficit hyperactivity disorder, predominantly inattentive type 21833528 F90.0 Used to see neurology. Has been recommende d for neuropsych evalUsed to do well on concerta but pt stopped on her own as she thought she had been doing well back in 2019 Pt states the sertraline with buspirone helps her ADHD symptoms.R sana for neuropaych testing. Family his tory of malignant neoplasm of ovary 749505612 Z80.41 Pt reports FHx of ovarian and cervical cancer (mother) and breast cancer (aunt).She wants genetic screening. Irregular periods 319943 07 N92.6 LMP: 03/01/23, she can't remember when the period prior that was. Reports heavy flow for the whole 7 days. Denies sexual activity. Concerned that she might have anemia bec she has been eating ice. She has seen ELECTRONIC DATA PROCESSING AUDITOR back in 2019 for this and was recommende d starting on OCP if her periods continue to be irregular. Has had blood work. Recent CBC neg for anemia. She is interested in going on the pill. She has never been on any contracept ion. Denies tobacco use. Check for iron deficiency anemia.Sta rt on OCP.Advise to closely monitor her moods while on OCP and work closely with her therapist and psychiatri st for any changes. Developmental delay 2482 23867 R62.50 See above.Pt recommende d by her neurologis t to get neuropsych testing a few years back. She was referred but did not hear from anyone. She has a hx of developmen keke delay, ADHD, MDD, suspicion for autism. Liver enzy mes level above reference range 516721264 R74.01 Recent labs showed elevated ALT and alk phos. Recheck. Systolic murmur 40507794 R01.1 [place] on exam. Newly noted and she reports some mild dyspnea on exertion so will order echo. [id number] Lucille Rivers MD [facility] [address] [place] [address] 03/08/2023 14:40:26 03/08/2023 15:22:58 Injury of right ankle 5579970279 7056980 S99.911A 18-year-ol d female presents to urgent care complainin g of injury to right ankle. Patient states she twisted her ankle yesterday. On exam there is tenderness of the lateral malleolus. There is mild swelling or deformity x-ray I do not appreciate any fractures. Discussed with patient we will call with official read. Discussed with patient likely has an ankle strain/spr ain due to mechanism of injury. Discussed with patient the importance of rest, ice, compressio n and elevation of leg. Exercise and increase weight beating as tolerated. May take pain relievers and anti inflammato shannan such as NSAIDs as needed. Follow up if symptoms persist or worsen such as increase in redness, swelling or bruising. VS reviewedCr utches and air splint ordered. [id number] MIKAELA Mcdonald [facility] [address] [place] [address] 03/26/2023 08:12:26 03/26/2023 09:24:12 Depressive disorder 84813213 F33.9 Latisha presents today for fmla. Pt states she needs refill of ARIPiprazo le 5 mg tablet, pantoprazo le 20 mg tablet,del ayed release, cloNIDine HCL 0.1 mg tablet, lamoTRIgin e 25 mg tablet. -SCL Pt presents to the office for a f/u on depression and to fill out an FMLA for missing work days due to her recent psychiatri c admission. Pt was admitted for suicidal thoughts and severe depression from 01/29/23 to 02/25/23. Pt states she has had transporta tion issues so she missed her appointmen t with her psychiatri st at [facility]. She ran out of her psych medication s and has not been on any of them for a week now. She has had issues accessing the FMLA paperwork so she states she missed the deadline to submit it to her job at [employer] therefore it was denied and she was let go on 02/18/23. She needs the PFML filled out so she can qualify for paid FMLA. She is currently interviewi for new jobs. Reports having stable housing and emotional support from friends and her mother. Has been approved for food stamps, applying for unemployme nt. Pt reports stable moods on most recent medication regimen. Denies SI/HI. Needs pantoprazo le refill for GERD. Doing well on OCP. Pt interviewe d by manager community relations Cindy Keith in order to set up with community resources. Will bridge psych medication s until she is able to see her psychiatri st. Gastroesop hageal reflux disease 151775538 K21.9 Doing well on pantoprazo le, needs refill. Attention deficit hyperactivity disorder, combined type 46041480 F90.2 Pt has been referred for neuropsych eval due to her hx of developmen keke delay and difficulti es in following through with tasks. Morbid obesity 111190782 E66.01 Z68.41 BMI: 40.9Hx of binge eating disorder on Vyvanse in the past. Not currently. Recent weight loss.Will monitor for now.Encour age healthy nutrition and physical exercise. Consider nutrition referral. Right now she is having transporta tion issues. [id number] Lucille Rivers MD [facility] [address] [place] [address] 03/18/2023 10:50:27 03/18/2023 11:42:28 Sprain of right ankle 1791990340 1927534 S93.401A 18-year-ol d female presents to urgent care complainin g of injury to right ankle. Patient states she twisted her ankle on 03/08/23 x-ray at that time question widening of the mortise. Patient was placed in crutches and.ankle splint. She returns today for ongoing pain. on examinatio n, swelling improved, tenderness medial malleolus Patient is requesting a walking boot . Patient declined x-ray at this time. Patient has an appointmen t on the for follow-up. With her PCP. Discussed with patient we will order a walking boot , advised to continue with crutches Tylenol Motrin for discomfort follow-up with PCP.VS reviewed [id number] Trina Chávez MD [facility] [address] [place] [address] 08/26/2023 10:48:43 08/26/2023 11:48:18 Bipolar disorder 73928595 F31.9 Dx Bipolar with schizophre darnell--recen t psychiatri c admission. Has follow up Psychiatry scheduled. Living with mother with good support. Denies any present risk of harmful behavior. Will continue present medication pending 09/03 Psychiatri appointmen t. Anemia 869153428 D64.9 Question anemia on recent labs, will repeat labs. --resolved . Adult heal th examination 851281952 Z00.00 Discussed safety and nutrition issues. Denies any substance use/ abuse. Dx Bipolar with schizophre darnell--recen t psychiatri c admission. Has follow up Psychiatry scheduled. Living with mother with good support. Denies any present risk of harmful behavior. Obesity 320304862 E66.09 We have discussed the adverse health consequenc es of obesity today as well the benefits of weight loss. We have focused on both diet and exercise management strategies in our discussion today. Referral to {{nutritio nist OT PT bariatric program me ntal health counseling }}. Will continue to monitor and assess. Declines nutrition Hepatitis C screening 41 3714712 Z11.59 Eczema 37346913 L30.9 Betamethas one prn. Fatigue 92715395 R53.83 Will check labs, supportive care. Advance care planning 71 7782714 Z71.89 HCP mother, documented . [id number] Trina Chávez MD [address] [address] 09/26/2023 15:55:28 09/29/2023 07:19:47 Eczema 41897848 L30.9 Betamethas one prn. Bipolar I disorder 99488 6008 F31.9 Followed at [facility]--couns major Decker, Medication provider, In partial program. Trying to get set up with [facility]. Here today for follow up recent admission for suicidalit y. Is scheduled to begin partial program, has counselor and medication provider at [facility]. Good home support with mother. Denies any present risk of harmful behavior. Irregular periods 776525 07 N92.6 Planning to follow up ELECTRONIC DATA PROCESSING AUDITOR. Prediabetes 960208823 R7 3.03 A1C 6.4. Nutrition referral. Obesity 021834419 E66.09 We have discussed the adverse health consequenc es of obesity today as well the benefits of weight loss. We have focused on both diet and exercise management strategies in our discussion today. Referral to {{nutritio nist* OT P T bariatri c program me nta health counseling }}. Will continue to monitor and assess. [id number] MIKAELA Mcdonald [address] [address] 01/15/2024 15:18:00 01/15/2024 16:54:45 Bipolar I disorder 690314288 F31.9 Followed at [facility] --tyra Decker sees her every Tues, Medication provider. Good home support with mother. Denies any present risk of harmful behavior. Prediabetes 252685927 R7 3.03 A1C 6.4. Nutrition referral. Morbid obesity 562447386 E66.01 Z68.41 BMI: 49.2 (prev 47.1)Hx of binge eating disorder on Vyvanse in the past. Not currently. Encourage healthy nutrition and physical exercise. Consider nutrition referral. Right now she is having transporta tion issues. Pt missed nutrition apt she states she will call them to reschedule . Leukocytosis 431866417 D 72.829 Based on recent lab results. ? due to medication use. Will recheck for surveillan ce. Eczema 02265669 L30.9 Pt on an active eczema flare on her b/l UEs. Severe plaques on b/l hands and b/l antecubita l regions. Betamethas one not working Denies use of any new skin products or chemicals. Tx with clobetasol BID. f/u if no improvemen t or worsening. [id number] Trina Chávez MD [facility] [address] [place] [address] 10/01/2024 16:11:23 10/04/2024 07:03:27 Adult health examination 440872526 Z00.00 Patient should discuss medical decisions with Health Care Proxy. Recommende d screenings included colonoscop y screening age 45, earlier based on family history/ri sk factors; annual mammogram age 40, unless earlier based on risk factors and discussion with patient; bone density age 65, unless risk factors for earlier screening; one time screen for hepatitis C if born between 7484-6994 or has risk factors. Reviewed vaccines and current recommenda tions. Basic health topics include aerobic exercise, importance of healthy/ba lanced diet and minimizing caffeine and alcohol.Co vid: due-declin esFlu: 05/2024Tdap (or Td): 9Smoking status:nev er smokerHep C screen: 08/26/23Pa p: due, declined today would like to go to ob/gynHeal thcare Proxy (everyone over 18) - 08/26/23 Advance care planning 71 7082406 Z71.89 HCP mother, documented . Prediabetes 855539912 R7 3.03 A1C 6.4. has lost 10 lbs. Will repeat labs. Cognitive developmental delay 375540799 F81.9 At [employer]. Applying for dissabilit y. Looking for testing for ASD. Will refer for neuropsych iatric testing. Bipolar I disorder 23235 6008 F31.9 Followed at [facility]--isaac Decker, Medication provider, HAs been doing well, stable since admission 04/2024. Presently at [employer]. Morbid obesity 286713540 E66.01 Working on diet, increase activity. nutrition referral pending. Body mass index 40+ - severely obese 738647119 Z68.42 Continue to work on diet, exercise. Health Concerns Section Related Observation LastModified by Organization Detai ls LastModified Time None Recorded Concern Status LastModified by Organization Details LastModified Time None Recorded Advance Directives Directive Y: mom, form completed Payers Encounter Date Sequence Insurance Name Policy Number Policy Egan Covered Member ID Egan Member ID Guarantor Name 03/26/2023 1 [place] Latisha G Saviski [id number] Latisha Saviski 08/26/2023 1 [place] Latisha G Saviski [id number] Latisha Saviski 09/26/2023 1 [place] Latisha G Saviski [id number] Latisha Saviski 01/15/2024 1 [place] Latisha G Saviski [id number] Latisha Saviski 10/01/2024 1 [place] Latisha G Saviski [id number] Latisha Saviski Notes Date Note Type Note Provider Name and Address Organization Details Recorded Time 03/26/2023 text/html Latisha presents today for fmla. Pt states she needs refill of ARIPiprazole 5 mg tablet, pantoprazole 20 mg tablet,delayed release, cloNIDine HCL 0.1 mg tablet, lamoTRIgine 25 mg tablet. -SCL Pt presents to the office for a f/u on depression and to fill out an FMLA for missing work days due to her recent psychiatric admission. Pt was admitted for suicidal thoughts and severe depression from 01/29/23 to 02/25/23. Pt states she has had transportation issues so she missed her appointment with her psychiatrist at [facility]. She ran out of her psych medications and has not been on any of them for a week now. She has had issues accessing the FMLA paperwork so she states she missed the deadline to submit it to her job at [employer] therefore it was denied and she was let go on 02/18/23. She needs the PFML filled out so she can qualify for paid FMLA. She is currently interviewing for new jobs. Reports having stable housing and emotional support from friends and her mother. Has been approved for food stamps, applying for unemployment. Pt reports stable moods on most recent medication regimen. Denies SI/HI. Needs pantoprazole refill for GERD. Doing well on OCP. MIKAELA Atkins [address] [place], [address], [facility] 03/31/2023 17:16:52 08/26/2023 text/html Patient presents to the office for anxiety. DW Here for follow up Anxiety/ Depression/ ADHD. Had moved to [place] and recently returned to [facility].hospitalized 5 weeks ago in [facility] after intentional medication overdose. Dx Bipolar, schizophrenia. Here with mother, has been more stable on present regimen. Living with mother. Mom is locking up/ dispensing medications. Has been stable since discharge. No further hallucinations or thoughts of self harm.Has upcoming HEALTH EQUIPMENT SERVICER appointment with psychiatry 09/03 with medication provider HEALTH EQUIPMENT SERVICER. Immunizations--Covid- declines boosterTd--2019Flu-[place] DHCP:mom, form given Trina Chávez MD [address] [place], [address], [facility] 09/08/2023 20:33:42 09/26/2023 text/html [facility] f[facility]u behavioral health admission. -mrb Recent Psychiatric readmission.Reports triggered by returning to work. Problems with friend. No presently working. Living with her mother.Admission 09/06-09/23-[facility]. Increased [place] and decreased olanzapine to 5 mg. Denies any thoughts of harmful behavior. Living with mother.Mom is worried about Olanzapine 5 mg due to weight gain (20 lbs since beginning spring 2022, ), recent Dx prediabetes. Will consider Nutrition consultIs following up with [facility] program. Trina Chávez MD [address] [place], [address], [facility] 10/12/2023 14:41:06 01/15/2024 text/html Pt lives with mo m may be moving to [employer] in [place] soon for 2 years. She states she has been feeling well. Reports stable moods these days. Continues to work with her therapist and psych prescriber at [facility]. Declines lab work due to active eczema flare on her b/l UEs. Severe plaques on b/l hands and b/l antecubital regions. Betamethasone not working Denies use of any new skin products or chemicals. MIKAELA Atkins [address] [facility], [place], [address], [facility] 02/02/2024 13:45:27 10/01/2024 text/html Latisha presents to the office today for physical and chronic care management. -AR Covid: due-declinesFlu: 05/2024Tdap (or Td):04/07/19Smoking status:never smokerHep C screen: 08/26/23Pap: due, declined today would like to go to [facility] (everyone over 18) - 08/26/23 hospitalized in 04/2024 for bipolar disorder/ depression. Reports she has been doing well. Continues to be followed at [facility], HAs been hospitalized X 11 since age 13. 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 Obesity-has lost 10 lbs in past 6 months, working on smaller portions, decreased sugar, increase in exercise.Developmenta l Delay-working on applying for social security. Looking for Neuropsychiatric testing for possible Autism.Never sexually active. regular menses. Trina Chávez MD [address] [facility], [place], [address], [facility] 10/01/2024 17:09:15 OBGyn Episode No OBEpisode recorded.
--- OUTSIDE RECORDS SUMMARY | 2024-10-15 13:54 | XMS_ITS | Continuity of Care Document ---
Author Organization [facility] Address [address] [place] [address] Care Team Providers Care Bean Snapper Name Role Phone TRINA CHÁVEZ Primary Care Provider TRINA CHÁVEZ Referring Provider [phone] LANCE MCKEON Pediatric Steam Setter ENIO DENNIS Steam Setter RASHID RUDD Ribbon Winder ADIA FITCH Pediatric Neurologist [facility] Neuro psychologist Assessment No assessment recorded. Plan of Treatment Reminders Order Date Submit Date Provider Last Modified By Organization Details Last Modified Time Details Appointments None recorde d. Lab HbA1c (hemogl obin A1c), blood 2024 025 [facility] Patient Reg, [address] [place], [address], 5 08:22:24 lipid panel, serum 2024 025 [facility] Patient Reg, [address] [place], [address], 5 21:35:29 CMP, serum or plasma 2024 025 [facility] Patient Reg, [address] [place], [address], 5 08:22:25 CBC w/ auto diff 2024 025 [facility] Patient Reg, [address] [facility] [place], [address], 5 08:22:25 Referral neurops ycholog ist referra l 2024 025 [facility], [address] [place], [address], 5 11:05:24 Procedures None recorde d. Surgeries None recorde d. Imaging None recorde d. Medication Orders None recorde d. Patient TargetsNo targets recorded. Patient Instructions Encounter Date Encounter Id Patient Instructions Last Modified By Organization Details Last Modified Time 10/01/2024 [id number] body mass index: care instructions [email or web address] Not available 10/01/2024 17:09:10 learning about healthy weight Not available 10/01/2024 17:09:10 When You Want to Lose Weight: Care Instructions Not available 10/01/2024 17:09:10 Reason for Referral Neuropsychologist Referral f or Cognitive developmental delay Referring Physician: Trina Chávez, Family Medicine, Encounter Date: 10/01/2024 Problems Name Problem SNOMED Code Status Onset Date Resolution Date Notes Provider Name and Address Organization Details Recorded Time Anxiety 42674993 Active 2017 social anxiety, evaluate d by MCPAPrec ommended zoloft 12.5 mg daily titratin g up for symptom relief. MIKAELA Mcdonald [address] [facility] [place], [address] , [facility] 4 21:43:39 Overeati ng 34428027 Active 2017 binge eating disorder MIKAELA GARCES [address] [facility] [place], [address] , [facility] 8 13:05:31 Seasonal allergy 551059308 Active 2017 MIKAELA Mcdonald [address] [facility] [place], [address] , [facility] 4 21:43:39 Chronic constipa tion 462649316 Active 2017 MIKAELA Mcdonald [address] [facility] [place], [address] , [facility] 4 21:43:39 Depressi ve disorder 05103591 Active 2017 MIKAELA GARCES [address] [facility] [place], [address] , [facility] 8 12:54:14 Eczema 58026138 Active 2017 MIKAELA Mcdonald [address] [facility] [place], [address] , [facility] 4 21:43:39 Urinary tract infectio us disease 26001874 Completed 201702/10/2019 MIKAELA Mcdonald [address] [place], [address] , [facility] 9 14:11:44 Essentia l tremor 424275537 Active 2017 MIKAELA Mcdonald [address] [place], [address] , [facility] 4 21:43:39 Methicil juan diego resistan t Staphylo coccus aureus infectio n 561047146 Active 2017 right middle finger MIKAELA Mcdonald [address] [place], [address] , [facility] 4 21:43:39 Cutting self 462660669 Active 2017 MIKAELA GARCES [address] [facility] [place], [address] , [facility] 8 13:10:17 Childhoo d obesity 415410183 Active 2017 MIKAELA Mcdonald [address] [facility] [place], [address] , [facility] 4 21:43:39 Dyslexia 20823014 Active 2018 504 accomoda tion plan in place MIKAELA Mcdonald [address] [place], [address] , [facility] 4 21:43:39 Simple febrile seizure 271843651 Completed 200309/14/2018 MIKAELA GARCES [address] [place], [address] , [facility] 9 09:17:12 Headache 10171665 Active 2018 MIKAELA GARCES [address] [facility] [place], [address] , [facility] 9 10:37:42 Developm ental delay 626923858 Active 2019 MIKAELA Mcdonald [address] [place] [address] [place], [address] , [facility] 0 08:09:59 Fracture d nasal bones 028624392 Active 2022 MIKAELA Mcdonald [address] [place] [address] [place], [address] , [facility] 3 21:19:59 Concussi on injury of brain 308416361 Active 2022 MIKAELA Mcdonald [address] [place] [address] [place], [address] , [facility] 3 21:20:10 Attentio n deficit hyperact ivity disorder , combined type 43478325 Active 2022 MIKAELA Mcdonald [address] [place], [place] [address], [address] , [facility] 3 14:10:09 Morbid obesity 535221448 Active 2022 MIKAELA Mcdonald [address] [place] [address] [place], [address] , [facility] 3 21:46:51 Irregula r periods 35762867 Active 2022 MIKAELA Mcdonald [address] [place], [address] , [facility] 3 12:24:02 Liver enzymes level above referenc e range 094869564 Completed 202203/31/2023 MIKAELA Mcdonald [address] [place], [address] , [facility] 3 17:09:05 Systolic murmur 98671366 Active 2022 MIKAELA Mcdonald [address] [place], [address] , [facility] 3 12:32:53 Gastroes ophageal reflux disease 567538521 Active 2022 MIKAELA Mcdonald [address] [place] [address] [place], [address] , [facility] 3 09:16:48 Bipolar disorder 44520389 Active 2022 Trina Chávez MD [address] [place], [place] [address], [address] , [facility] 3 11:09:26 Closed fracture radial styloid 452393468 Active MIKAELA Mcdonald [address] [place] [address] [place], [address] , [facility] 4 21:42:18 Severe recurren t major depressi on without psychoti c features 76721535 Active MIKAELA Mcdonald [address] [place], [place] [address], [address] , [facility] 4 21:42:18 Menorrha charito 193053830 Active MIKAELA Mcdonald [address] [place] [address] [place], [address] , [facility] 4 21:42:18 Delibera te self-cut ting 857364307 Active 2017 MIKAELA Mcdonald [address] [place] [address] [place], [address] , [facility] 4 21:42:18 Attentio n deficit hyperact ivity disorder 390656193 Active 2017 MIKAELA Mcdonald [address] [place], [place] [address], [address] , [facility] 4 21:42:18 Cognitiv e developm ental delay 976502996 Active 2019 MIKAELA Mcdonald [address] [place], [place] [address], [address] , [facility] 21:42:18 Binge eating disorder 980156128 Active 2017 MIKAELA Mcdonald [address] [place] [address] [place], [address] , [facility] 21:42:18 Moderate depresse d bipolar I disorder 60223215 Active MIKAELA Mcdonald [address] [place] [address] [place], [address] , [facility] 21:42:19 Problem Notes None recorded. Procedures Surgical History Date Name Laterality Status Provider Name and Address Organization Details Recorded Time 12/17/19 24 Nutrition cancelled ENIO DENNIS RDN, LD [address] [facility] [place], [address], [facility] 12/17/2023 12:27:36 02/13/20 23 Advance Care Plan cancelled MIKAELA Atkins [address] [place], [place] [address], [address], [facility] 02/10/2023 21:46:32 01/16/20 22 PHQ-9 Patient Health Questionnaire completed TOMÁS Morales [facility] 01/15/2022 08:26:05 09/26/19 21 Nutrition completed ENIO DENNIS RDN, LD [address] [facility] [place], [address], [facility] 09/26/2020 14:51:22 07/26/20 20 Nutrition completed ENIO DENNIS RDN, LD [address] [place] [address] [place], [address], [facility] 07/31/2020 12:07:28 06/28/20 20 Nutrition completed ENIO DENNIS RDN, LD [address] [place] [address] [place], [address], [facility] 06/28/2020 14:13:39 06/06/20 20 new patient counseling (20-29 minutes) completed Rashid Rudd MD [address] [place] [address] [place], [address], [facility] 06/06/2020 11:06:47 05/24/20 20 Nutrition completed ENIO DENNIS RDN, LD [address] [place] [address] [place], [address], [facility] 06/06/2020 15:31:32 04/25/20 20 Nutrition completed ENIO DENNIS RDN, LD [address] [place] [address] [place], [address], [facility] 05/01/2020 14:15:26 04/12/20 20 CRAFFT completed ERICK Haney [facility] 04/12/2020 11:45:56 04/12/20 20 PHQ-9 Patient Health Questionnaire completed MIKAELA Atkins [address] [place] [address] [place], [address], [facility] 04/12/2020 12:36:31 03/28/20 20 Nutrition completed ENIO DENNIS RDN, LD [address] [place] [address] [place], [address], [facility] 03/28/2020 11:26:24 01/26/20 20 PHQ-9 Patient Health Questionnaire completed Kirstie Lopez CMA [facility] 01/26/2020 15:40:21 04/07/20 19 CRAFFT completed ERICK Steiner [facility] 04/07/2019 14:17:49 04/07/20 19 PHQ-9 Patient Health Questionnaire completed MIKAELA Atkins [address] [place], [place] [address], [address], [facility] 04/18/2019 19:07:29 02/11/20 19 PHQ-9 Patient Health Questionnaire completed MIKAELA Atkins [address] [place] [address] [place], [address], [facility] 02/10/2019 14:55:53 dilation of urethra completed MIKAELA GARCES [address] [place], [place] [address], [address], [facility] 09/15/2018 10:38:43 tonsillectomy completed MIKAELA GARCES [address] [place], [place] [address], [address], [facility] 09/15/2018 10:39:17 Imaging Results None recorded. Procedure Notes None recorded. Medical Equipment None Reported. Allergies Allergen ID Allergen Name Allergen Category Reaction Reaction Severity Criticality Documentation Date Start Date Code Code System Note Provider Name and Address Organization Details Recorded Time 296488 Substance with sulfonami de structure and antibacte rial mechanism of action (substanc e) medicatio n diarrhea Not available Not available 06/03/2018 71613 8003 SNOMED [facility] 8 15:20:00 386278 Vyvanse medicatio n Not available Not available Not available 10/18/2019 84371 3 RxNorm ? Depre ssive Moods MIKAELA Gaitan [address] [place], [place] [address], [address], [facility] 0 22:37:10 20201208 lisdexamf etamine medicatio n Not available Not available Not available 02/19/20232022 46643 0 RxNorm Chaparro love [facility] 3 08:01:33 20201209 Canis lupus familiari s extract environme nt rash Not available Not available 02/19/20232022 07950 4 RxNorm Chaparro Lee CCM kate, [facility] 3 08:01:33 Medications Name Sig Start Date [...] BY MOUTH EVERY DAY IN THE MORNING 08/26 completed Not Available Not Available Not [...] t Available Vitals Date Recorded Body height Heart rate Oxygen saturation Oxygen saturation in Arterial blood by Pulse oximetry Body mass index (BMI) Body weight Systolic blood pressure Diastolic blood pressure Provider Name and Address Organization Details Last Updated DateTime 5 153.67 cm 99 /min 99 % 99 % 47.3 kg/m2 482521. 72 g 130 mm[Hg] 98 mm[Hg] Nancy Moulton MA [facility] 5 16:19:14 Date Recorded Systolic blood pressure Diastolic blood pressure Provider Name and Address Organization Details Last Updated DateTime 10/01/2024 128 mm[Hg] 82 mm[Hg] Trina Chávez MD [address] [place], [place] [address], [address], [facility] 10/01/2024 17:09:02 Social History Question Answer Notes LastModified by Organization Details LastModified Time Tobacco Smoking Status Never Smoker CHAD THOMAS NP [address] [place], [place] [address], [address], [facility] 06/03/2018 15:29:01 Do You Have An Advance Directive? Yes Mom, Form Completed Information not available 08/26/2023 What Is Your Level Of Alcohol Consumption? None Information not available 08/26/2023 What Is Your Code Status? Full Code [email or web address] Information not available 08/26/2023 What Type Of [...] available 09/15/2018 Date Of Tobacco Screen 10/01/2024 [email or web address] Information not available 10/01/2024 Siblings In Home [...] Of Your Most Recent Tobacco Screening? 10/01/2024 [email or web address] Information not available 10/01/2024 Seat Belts Used [...] 09/15 10:34:23 Notes:Endometriosis Medical History Condition Response other Y bladder / kidney infection(s) Y Gynecological History Statement/Question Response Gonorrhea/Chlamydia N Age at Menarche 13 Date of LMP 04/11/2020 Obstetrics History GPAL:G 0 P 0 0 0 0 Immunizations Vaccine Type Date Status Note Provider Nam e and Address Organization Details Recorded Time meningococcal B, unspecified 8 completed MIKAELA GARCES [address] [place], [place] [address], [address], [facility] 09/14/2018 09:28:08 HPV, unspecified formulation 8 completed MIKAELA GARCES [address] [place], [place] [address], [address], [facility] 09/14/2018 09:30:28 HPV, bivalent 8 completed MIKAELA GARCES [address] [place], [place] [address], [address], [facility] 09/14/2018 09:31:59 COVID-19, mRNA, LNP-S, PF, 100 mcg/0.5mL dose or 50 mcg/0.25mL dose 1 completed MIKAELA Atkins [address] [place], [place] [address], [address], [facility] 12/07/2023 21:42:19 COVID-19, mRNA, LNP-S, PF, 100 mcg/0.5mL dose or 50 mcg/0.25mL dose 1 [facility] 03/12/2023 08:01:14 HPV9 9 completed [facility] 09/25/2019 02:21:15 Tdap 9 completed Not Available [facility] 09/25/2019 02:21:41 Hep A, ped/adol, 2 dose 9 completed Not Available [facility] 09/25/2019 02:21:17 Influenza, split virus, quadrivalent, PF 0 completed MIKAELA Atkins [address] [place] [address] [place], [address], [facility] 12/07/2023 21:42:19 influenza, unspecified formulation 3 completed Trina Chávez MD [address] [place] [address] [place], [address], [facility] 08/26/2023 11:20:16 Influenza, split virus, quadrivalent, PF 9 completed Not Available [facility] 09/25/2019 02:22:42 meningococcal MCV4P 0 completed MIKAELA Atkins [address] [place] [address] [place], [address], [facility] 04/12/2020 15:40:53 Hep A, ped/adol, 2 dose 0 completed MIKAELA Atkins [address] [place] [address] [place], [address], [facility] 04/12/2020 15:40:53 Influenza, split virus, trivalent, PF 4 completed Trina Chávez MD [address] [place] [address] [place], [address], [facility] 10/01/2024 16:36:27 Past Encounters Encounter ID Performer Location Encounter Start Date Encounter Closed Date Diagnosis/Indication Diagnosis SNOMED-CT Code Diagnosis ICD10 Code Diagnosis Note [id number] Trina Chávez MD [address] [address] 10/01/2024 16:11:23 10/04/2024 07:03:27 Adult health examination 865038551 Z00.00 Patient should discuss medical decisions with [facility]. Recommende d screenings included colonoscop y screening age 45, earlier based on family history/ri sk factors; annual mammogram age 40, unless earlier based on risk factors and discussion with patient; bone density age 65, unless risk factors for earlier screening; one time screen for hepatitis C if born between 7041-2765 or has risk factors. Reviewed vaccines and current recommenda tions. Basic health topics include aerobic exercise, importance of healthy/ba lanced diet and minimizing caffeine and alcohol.Co vid: due-declin esFlu: 05/2024Tdap (or Td): 9Smoking status:nev er smokerHep C screen: 08/26/23Pa p: due, declined today would like to go to [facility]ynHeal [facility] (everyone over 18) - 08/26/23 Advance care planning 71 6209661 Z71.89 HCP mother, documented . Prediabetes 137362090 R7 3.03 A1C 6.4. has lost 10 lbs. Will repeat labs. Cognitive developmental delay 988833472 F81.9 At [employer] Applying for dissabilit y. Looking for testing for ASD. Will refer for neuropsych iatric testing. Bipolar I disorder 60515 6008 F31.9 Followed at [facility]--isaac Decker, Medication provider, HAs been doing well, stable since admission 04/2024. Presently at [facility]. Morbid obesity 892597363 E66.01 Working on diet, increase activity. nutrition referral pending. Body mass index 40+ - severely obese 775561487 Z68.42 Continue to work on diet, exercise. Health Concerns Section Related Observation LastModified by Organization Detai ls LastModified Time None Recorded Concern Status LastModified by Organization Details LastModified Time None Recorded Payers Encounter Date Sequence Insurance Name Policy Number Policy Egan Covered Member ID Egan Member ID Guarantor Name 10/01/2024 1 [place] [facility] Latisha Augustin [id number] Latisha Augustin Notes Date Note Type Note Provider Name and Address Organization Details Recorded Time 10/01/2024 text/html Latisha presents to the office today for physical and chronic care management. -[place] Covid: due-declinesFlu: 05/2024Tdap (or Td):04/07/19Smoking status:never smokerHep C screen: 08/26/23Pap: due, declined today would like to go to [facility]/gynHealth[facility] (everyone over 18) - 08/26/23 hospitalized in 04/2024 for bipolar disorder/ depression. Reports she has been doing well. Continues to be followed at [facility], HAs been hospitalized X 11 since age 13. History suicidal attempts.Living at [facility]. Obesity-has lost 10 lbs in past 6 months, working on smaller portions, decreased sugar, increase in exercise.Developmenta l Delay-working on applying for social security. Looking for Neuropsychiatric testing for possible Autism.Never sexually active. regular menses. Trina Chávez MD [address] [place] [address], [address], [facility] 10/01/2024 17:09:15 OBGyn Episode No OBEpisode recorded.
== END 2024-10-15 13:30 | disposition home or self-care (01) ==
PROVIDERS: Emergency Provider Emergency Medicine Emergency Medical Services
DX: B34.9 Viral infection, unspecified (principal); R05.9 Cough, unspecified; F33.1 Major depressive disorder, recurrent, moderate; R07.89 Other chest pain; Z03.818 Encounter for observation for suspected exposure to other biological agents ruled out
CPT/HCPCS: 0241U; 71046; 99282; 99283

== ENCOUNTER → 2024-10-15 08:38 | Outpatient (BNV) | payer MEDICAID, SELFPAY | PROVIDERS: Visit Provider Radiology Diagnostic Radiology | DX: R07.9 Chest pain, unspecified (principal); R05.9 Cough, unspecified | CPT/HCPCS: 71046 ==

== ENCOUNTER 2024-12-05 02:59 | Emergency (ER) | payer MEDICAID, SELFPAY ==
[2024-12-05 03:17] VITALS: BP 160/100; BP 170/82; PULSE 88; PULSE 94; RESP 18; TEMP 36.2; O2SAT 100; O2SAT 98; BMI 36.6
--- NOTE | 2024-12-05 03:19 | MHC.EDTECH ---
pt allowed to keep stress toy. rn aware.
--- NOTE | 2024-12-05 03:40 | ED_ITS ---
HPI - Psych General Chief Complaint: Psychiatric Symptoms Stated Complaint: SUICIDAL IDEATIONS Time Seen by Provider: 12/05/24 03:40 Source: patient Limitations: no limitations History of Present Illness ED Provider: Natalie Burrell PA-C HPI Narrative: 19-year-old female with a history of schizoaffective disorder, depression presents with SI. Patient states she is currently at [facility], she started to hear voices. She states the voices are telling her to ?self-harm?. Patient states she has a plan to ?cut?. Patient states she has had suicidal ideation in the past with prior attempts. Patient states she is currently working with her psychiatrist to wean off her medication. Related Data Home Medications ?Medication ?Instructions ?Recorded ?Confirmed hydroxyzine pamoate 25 mg capsule 25 mg PO BID PRN anxiety 12/05/24 12/05/24 (Vistaril) lithium carbonate 300 mg 300 mg PO BEDTIME 12/05/24 12/05/24 tablet,extended release quetiapine 25 mg tablet 25 mg PO BEDTIME 12/05/24 12/05/24 Allergies Allergy/AdvReac Type Severity Reaction Status Date / Time blue dye AdvReac Intermediate Redness of Verified 12/05/24 03:24 Skin red dye AdvReac Intermediate Redness of Verified 12/05/24 03:24 Skin Sulfa (Sulfonamide AdvReac Hives Verified 12/05/24 03:24 Antibiotics) Review of Systems 2 Review of Systems: Yes all other systems are reviewed and are negative Constitutional: Constitutional: Denies fatigue, Denies fever(s) and Denies headache(s) ENT: Denies headache(s) Cardiovascular: Cardiovascular: Denies chest pain and Denies dyspnea Respiratory: Respiratory: Denies dyspnea Gastrointestinal: Gastrointestinal: Denies abdominal pain Neurologic: Denies headache(s) Psychiatric: Psychiatric: Reports auditory hallucinations and Reports suicidal ideation Endocrine: Endocrine: Denies fatigue PMFSH Past Medical History Attestation statement: The following information was validated with the patient. Social History Social History Household Members: None Housing: Homeless Patient Tobacco Use Status: Never used Tobacco Substance Use Type: Marijuana Advance Directives: No Do you have a plan to hurt others: No Plan service: No Sexual orientation: Straight/Heterosexual Physical Exam 2 Vital Signs: Vital Signs: Last Vital Signs Temp 98.2 F 12/06/24 12:02 Pulse 90 12/06/24 12:02 Resp 20 12/06/24 12:02 BP 149/82 H 12/06/24 12:02 Pulse Ox 97 12/06/24 12:02 O2 Del Method Room Air 12/06/24 12:02 BMI result Body Mass Index 36.6 Const: Other: Alert sitting up in bed playing with a fidget toy Orientation/consciousness: patient oriented x3 Resp: Effort & Inspection: normal respiratory effort Cardio: Other: Normal peripheral perfusion Skin: Other: Warm dry no rash Neuro: General: patient oriented x3, gait normal, no focal motor deficits and CN's II-XI intact bilaterally Psych: Other: Cooperative Course Course Course Narrative: 12/06/24 7am observation continued, VS stable, no acute events overnight, respite bed search in place JAMARI Reevaluation(s) Reevaluation #1: Dr. Hernandez's note: care team input is appreciated, patient received yesterday 1200 mg of her daily lithium patient is taking only 300 mg normally, we will resume her normal daily dose, patient will be going to respite. Will discontinue physician observation. Time: 12:33 Medications Administered Generic Name Dose Route Start Last Admin Trade Name Freq PRN Reason Stop Dose Admin [place] Carbonate 300 mg 12/06/24 00:15 12/06/24 00:17 [place] Carbonate Er 300 Mg Tablet.Er PO 300 mg BEDTIME GRACY Administration Quetiapine Fumarate 25 mg 12/06/24 00:15 12/06/24 00:17 Quetiapine Fumarate 25 Mg Tablet PO Not Given BEDTIME GRACY Discontinued Medications Generic Name Dose Route Start Last Admin Trade Name Freq PRN Reason Stop Dose Admin [place] Carbonate 900 mg 12/05/24 16:27 12/05/24 16:56 [place] Carbonate Er 450 Mg Tablet.Er PO 12/05/24 16:28 900 mg ONCE ONE Administration Medical Decision Making Medical Decision Making MDM Narrative: 19-year-old female with a history of schizoaffective disorder, depression presents with SI. Patient states she is currently at [facility], she started to hear voices. She states the voices are telling her to ?self-harm?. Patient states she has a plan to ?cut?. Patient states she has had suicidal ideation in the past with prior attempts. Patient states she is currently working with her psychiatrist to wean off her medication. Problem: Schizoaffective disorder, depression History: Per patient I have considered the following differential diagnoses: SI, HI, decompensated psychiatric illness, drug/alcohol intoxication Plan: Screening labs including serum ethanol drug screen we will be obtained. The patient will be referred to the care team. From what she describes, she is trying to wean off her medications under guidance of her psychiatrist. She was advised to seek help if she started feeling suicidal. I have independently reviewed the following tests: Labs: Pending at the time of sign-out. Lab Data 12/05/24 03:57 12/05/24 03:57 Labs: Lab Results 12/05/24 12/05/24 Range/Units 03:57 10:32 WBC 13.4 H (4.8-10.8) X10*3/uL RBC 5.09 (4.20-5.50) X10*6/uL Hgb 13.2 (12.0-16.0) g/dl Hct 39.6 (37.0-47.0) % MCV 77.8 L (80.0-98.0) fL MCH 25.9 L (27.0-33.0) pg MCHC 33.3 (31.0-35.0) g/dl RDW 13.4 (11.0-16.0) % Plt Count 348 (160-400) X10*3/uL MPV 9.6 (9.4-12.3) fL Immature Gran % (Auto) 0.4 (0.0-0.4) % Neut % (Auto) 65.7 (45-73) % Lymph % (Auto) 28.9 (20-40) % Hart % (Auto) 3.7 (2-11) % Eos % (Auto) 0.9 (0-4) % Baso % (Auto) 0.4 (0-2) % Lymph # (Auto) 3.9 (1.2-4.9) X10*3/uL Hart # (Auto) 0.5 (0.1-1.2) X10*3/uL Eos # (Auto) 0.1 (0.0-0.4) X10*3/uL Baso # (Auto) 0.1 (0.0-0.2) X10*3/uL Abs Immat Gran (auto) 0.05 H (0.00-0.03) X10*3/uL Absolute Neuts (auto) 8.8 H (2.0-8.3) x10*3/uL Absolute Nucleated RBC 0.000 (0.0-0.012) X10*3/uL Nucleated RBC % (auto) 0.0 (0.0-0.2) /100WBC Sodium 142 (135-145) mmol/L Potassium 3.7 (3.3-5.1) mmol/L Chloride 111 H (96-108) mmol/L Carbon Dioxide 23 (22-29) mmol/L Anion Gap 12 (12-20) BUN 8 L (9-16) mg/dL Creatinine 0.65 (0.5-1.4) mg/dL Estim Creat Clear Calc 143.4 Estimated GFR > 60 Random Glucose 116 H (60-115) mg/dL Calcium 9.1 D (8.4-10.2) mg/dL Total Bilirubin 0.3 (0.0-1.0) mg/dL AST 31 (5-31) U/L ALT 59 H (0-31) U/L Alkaline Phosphatase 128 H (39-117) U/L Total Protein 7.4 (6.5-8.0) g/dL Albumin 4.2 (3.5-5.0) g/dL Urine Color Yellow Urine Appearance Clear Urine pH 5.0 (5.0-9.0) Ur Specific [place] 1.020 (1.005-1.025) Urine Protein Negative (Neg-Trace) mg/dL Urine Glucose (UA) Negative (Negative) mg/dL Urine Ketones Negative (Negative) mg/dL Urine Blood Moderate (2+) H (Negative) Urine Nitrite Negative (Negative) Ur Leukocyte Esterase Negative (Negative) Urine RBC 0-2 (0-2) /HPF Urine WBC 0-5 (0-5) /HPF Ur Squamous Epith Cells 0-2 (0-2) /HPF Urine Bacteria None Seen (None Seen) Hyaline Casts 0-2 (0-2) /LPF Urine Test NEGATIVE (NEGATIVE) Salicylates < 5.0 L (15-30) mg/dL Urine Opiates Screen Not Detected (Not Detect) Ur Buprenorphine Scrn Not Detected (Not Detect) ng/mL Ur Oxycodone Screen Not Detected (Not Detect) ng/mL Urine Methadone Screen Not Detected (Not Detect) ng/mL Urine Fentanyl Screen Not Detected (Not Detect) Acetaminophen < 3 (<30) mcg/mL Ur Barbiturates Screen Not Detected (Not Detect) Ur Phencyclidine Scrn Not Detected (Not Detect) Ur Amphetamines Screen Not Detected (Not Detect) U Benzodiazepines Scrn Not Detected (Not Detect) [place] < 0.10 L (0.60-1.20) mmol/L Urine Cocaine Screen Not Detected (Not Detect) U Marijuana (THC) Screen Not Detected (Not Detect) Ethyl Alcohol < 10 mg/dL Discharge Plan Discharge Clinical Impression: Mood disorder Patient Disposition: Xfer Other Transfer Details: Going to respite Instructions: Mood Disorders (ED) Prescriptions: No Action hydroxyzine pamoate [Vistaril] 25 mg capsule 25 mg PO BID PRN (Reason: anxiety) lithium carbonate 300 mg tablet extended release 300 mg PO BEDTIME quetiapine 25 mg tablet 25 mg PO BEDTIME Referrals: Conchita Ernandez MD [Other] Interventions: [place]-Suicide Risk Severity Scale Last Done: 12/06/24 06:14 Print Language: Greek
[2024-12-05 04:03] LABS: Basophils Absolute Auto 0.1 X10*3/uL (0.0-0.2); Basophils Percent Auto 0.4 % (0-2); Eosinophils Absolute Auto 0.1 X10*3/uL (0.0-0.4); Eosinophils Percent Auto 0.9 % (0-4); Hematocrit 39.6 % (37.0-47.0); Hemoglobin 13.2 g/dl (12.0-16.0); Imm Gran Abs Auto 0.05 X10*3/uL (0.00-0.03); Imm Gran Pct Auto 0.4 % (0.0-0.4); Lymphocytes Absolute Auto 3.9 X10*3/uL (1.2-4.9); Lymphocytes Percent Auto 28.9 % (20-40); MANUAL DIFF FLAG NO; Mean Corpuscular HGB Conc 33.3 g/dl (31.0-35.0); Mean Corpuscular Hemoglobin 25.9 pg (27.0-33.0); Mean Corpuscular Volume 77.8 fL (80.0-98.0); Mean Platelet Volume 9.6 fL (9.4-12.3); Monocytes Absolute Auto 0.5 X10*3/uL (0.1-1.2); Monocytes Percent Auto 3.7 % (2-11); Neutrophils Absolute Auto 8.8 x10*3/uL (2.0-8.3); Neutrophils Percent Auto 65.7 % (45-73); Platelet Count 348 X10*3/uL (160-400); Red Blood Count 5.09 X10*6/uL (4.20-5.50); Red Cell Distribution Width 13.4 % (11.0-16.0); White Blood Count 13.4 X10*3/uL (4.8-10.8)
[2024-12-05 04:17] LABS: Lithium < 0.10 mmol/L (0.60-1.20)
[2024-12-05 04:21] LABS: Acetaminophen LAB < 3 mcg/mL (<30); Salicylate < 5.0 mg/dL (15-30)
[2024-12-05 04:26] LABS: Alanine Aminotransferase 59 U/L (0-31); Albumin Level 4.2 g/dL (3.5-5.0); Anion Gap 12 (12-20); Aspartate Amino Transferase 31 U/L (5-31); Bilirubin Total 0.3 mg/dL (0.0-1.0); Blood Urea Nitrogen 8 mg/dL (9-16); Calcium 9.1 mg/dL (8.4-10.2); Carbon Dioxide 23 mmol/L (22-29); Chloride 111 mmol/L (96-108); Creatinine Clr Calc Pharmacy 143.4; Estimated Glomerular Filt Rate > 60; Ethanol < 10 mg/dL; Glucose Random 116 mg/dL (60-115); Potassium 3.7 mmol/L (3.3-5.1); Sodium 142 mmol/L (135-145); Total Protein 7.4 g/dL (6.5-8.0)
[2024-12-05 04:27] LABS: Alkaline Phosphatase 128 U/L (39-117)
[2024-12-05 06:07] VITALS: RESP 16
[2024-12-05 08:59] VITALS: BP 157/74; PULSE 75; RESP 18; TEMP 37.1; O2SAT 96
[2024-12-05 10:44] LABS: Appearance Urine Clear; Color Urine Yellow; Glucose Urine UA Negative (Negative); Leukocyte Esterase Urine Negative (Negative); Nitrite Urine Negative (Negative); UMIC TRIGGER UA YES; UPreg QC Valid YES; Urine Blood Moderate (2+) (Negative); Urine Ketones Negative (Negative); Urine Pregnancy NEGATIVE (NEGATIVE); Urine Protein Negative (Neg-Trace)
[2024-12-05 10:54] LABS: Amphetamine Screen Urine Not Detected (Not Detect); Barbiturates, Urine Not Detected (Not Detect); Benzodiazepines Screen Urine Not Detected (Not Detect); Buprenorphine Scr Not Detected (Not Detect); Cannabinoid Screen Urine Not Detected (Not Detect); Cocaine Screen Urine Not Detected (Not Detect); Fentanyl, urine Not Detected (Not Detect); Methadone Screen, Urine Not Detected (Not Detect); Opiate Screen Urine Not Detected (Not Detect); Oxycodone Screen Urine Not Detected (Not Detect); Phencyclidine Screen Urine Not Detected (Not Detect)
[2024-12-05 10:59] LABS: Bacteria Urine None Seen (None Seen); Hyaline Casts Urine 0-2 /LPF (0-2); RBC Urine 0-2 /HPF (0-2); Squamous Epithelial Cell Urine 0-2 /HPF (0-2); WBC Urine 0-5 /HPF (0-5)
--- NOTE | 2024-12-05 14:14 | MHC.CARE ---
Patient evaluated by the CARE Team, disposition determined to be ACCS. Her information has been faxed to [facility] in [place]. ED provider Dr. Zuluaga
[2024-12-05 15:18] VITALS: BP 127/66; PULSE 80; RESP 14; TEMP 36.6; O2SAT 97
[2024-12-05] MEDS: Lithium Carbonate ER 450 MG TABLET.ER 900 MG PO (16:56)
--- NOTE | 2024-12-05 17:39 | PC.NURSE ---
Called respite [facility] [phone] Patient already got her lithium dose and only PRN hydroxizine for medications. Wait[facility] for a [facility] Patient already took lithium here.
--- NOTE | 2024-12-05 18:09 | PC.NURSE ---
Respite called and states that patient can't go to respite unless they can verify she has a prescription at the [facility]. She will go tomorrow am. Betsy from Care team notified.
[2024-12-06] MEDS: Lithium Carbonate ER 300 MG TABLET.ER PO (00:17)
--- NOTE | 2024-12-06 06:18 | PC.NURSE ---
Patient slept through the night, no distress observed/reported, 15 minutes safety check, no behavior and safety concerns, disposition per care team is respite bed search, will continue to monitor
[2024-12-06 06:22] VITALS: BP 116/62; PULSE 67; RESP 17; TEMP 36.6; O2SAT 96
--- NOTE | 2024-12-06 09:52 | PC.NURSE ---
Assumed care of patient at 0645, patient appears to be sleeping, respirations even and unlabored, no apparent distress noted. It was pointed out to this RN that patient received a dose of lithium higher than her prescribed amount last night. Patient received 900mg [place] at 1646 and then also received 300mg at 0017 this am. Patient is only prescribed 300mg at bedtime. Provider Aletha made aware via tiger text at 1008
--- NOTE | 2024-12-06 11:29 | PHA.MEDREC ---
Addendum entered by Daron Taveras 12/06/24 11:56: reviewed Original Note: Pharmacy Consult ? Medication Reconciliation Pharmacy has reviewed the medication reconciliation done by nursing.
[2024-12-06 12:02] VITALS: BP 149/82; PULSE 90; RESP 20; TEMP 36.8; O2SAT 97
--- NOTE | 2024-12-06 12:29 | MHC.CARE ---
Patient accepted to [facility], admission for 1:30pm today. Confirmed prescription for 150mg [place] at [facility] in [place]. ED provider Dr. Hernandez updated with plan.
[2024-12-06 13:05] VITALS: BP 149/82; PULSE 90; RESP 20; TEMP 36.8; O2SAT 97
== END 2024-12-06 13:10 | disposition other institution (70) ==
PROVIDERS: Physician Assistant Medical; Emergency Provider Emergency Medicine Emergency Medical Services; PCP Family Medicine
DX: F25.1 Schizoaffective disorder, depressive type (principal); R45.851 Suicidal ideations; Z79.899 Other long term (current) drug therapy
CPT/HCPCS: 36415; 80053; 80143; 80178; 80179; 80307; 81001; 81025; 85025; 99284; S9485